=== PATIENT | female | born 1995 | race Caucasian/White ===

== ENCOUNTER → 2017-03-17 | Outpatient (REF) | payer SELFPAY | LOC: M LAB REF 13:25 | PROVIDERS: ATTEND Advanced Practice Midwife | DX: Z34.83 Encounter for supervision of other normal pregnancy, third trimester (principal) ==

== ENCOUNTER 2017-04-13 15:14 | Inpatient (IN) | payer OTHER ==
[2017-04-13] VITALS (31 sets, daily range): BP systolic 96–149; BP diastolic 53–88
[~2017-04-13] VITALS: Ht 124.5 cm; Wt 64.2 kg
[2017-04-13] MEDS ORDERED: LACTATED RINGER'S 1000 ML IV STA (15:21)
[2017-04-13] MEDS ORDERED: OXYTOCIN DRIP 30 UNITS in APPROPRIATE DILUENT 1 EA IV SCH (15:30)
[2017-04-13] MEDS ORDERED: LR 1,000 ML IV SCH (16:00)
[2017-04-13] MEDS ORDERED: PRENTAB9 PO (16:02)
[2017-04-13] MEDS ORDERED: ZOLO50TA PO (16:02)
[2017-04-13] MEDS ORDERED: IRON65TA PO (16:03)
[2017-04-13] MEDS ORDERED: ZOFR4SOL PO (16:04)
[2017-04-13 16:29] LABS: MEAN CORPUSCULAR HEMOGLOBIN 29.3 pg (27.0-33.0); MEAN CORPUSCULAR HGB CONC 33.5 g/dl (32.0-36.5); MEAN CORPUSCULAR VOLUME 87.5 fl (80.0-96.0); RED CELL DISTRIBUTION WIDTH 15.4 % (11.5-14.5); WHITE BLOOD COUNT 9.2 K/mm3 (4.0-10.0)
--- NOTE | 2017-04-13 19:12 | HPE ---
DATE OF ADMISSION: 04/13/2017 Daniella is a 21-year-old 1, para 0 at 40-5/7 weeks gestation with an estimated date of confinement (EDC) of 04/08/2017 based on last normal menstrual period and confirmed by first trimester ultrasound. She presents to labor and delivery today for induction of labor due to social reasons. Her care was initiated at [facility] in the second trimester. Her course has been complicated by a history of positive urine toxicology at previous provider, (opiates, marijuana) rubella nonimmune, anemia. OBSTETRICAL HISTORY: Primigravida. OB LABS: Blood type is A+, antibody screen negative, rubella immune, VDRL nonreactive. Urine culture normal. Hepatitis B surface antigen negative. HIV negative. Hepatitis C antibody nonreactive. Gonorrhea and chlamydia negative. She did not have any genetic serum screening labs drawn. Gestational diabetic screening was normal at 125 and her GBS is negative. PAST MEDICAL HISTORY: Asthma, activity induced, depression, anxiety, post-traumatic stress disorder. SURGICAL HISTORY: None. FAMILY HISTORY: Depression, cancer of the breast, stomach, pancreas and lung, hypertension, heart disease. SOCIAL HISTORY: The patient is single, but the father of the baby is involved. He is not present at this time. She is a reported former smoker who quit in August. She denies alcohol use. She does report a history of marijuana use and heroin use. A positive history of chlamydia in the past. ALLERGIES: No known drug allergies. CURRENT MEDICATIONS: - ferrous sulfate - Zoloft - Zantac - vitamin OBJECTIVE: Temperature 98.1, pulse 60, respirations 18, blood pressure 128/78. She is alert and oriented times three. She is in no distress, smiling and talkative. heart rate upon admission and arrival to labor and delivery 150 with moderate variability, positive accelerations, no decelerations. There is no pattern of regular contractions upon admission to labor and delivery. Abdomen is gravid, cephalic presentation. Estimated weight: 7-1/2 pounds. Sterile vaginal exam: 3 cm, dilated 80% effaced, -2 station. ASSESSMENT: Intrauterine at 40-5/7 weeks gestation. heart rate category 1. PLAN: Admit the patient to labor and delivery. Labs including a urine toxicology. Out of bed ad gerhard. Clear liquid diet. IV Pitocin for labor induction. I did review risks to induction including increased risk for section, intolerance to labor and failed induction. The patient has had all of her questions answered and does desire to proceed with induction of labor. TYREL
[2017-04-13] MEDS ORDERED: PROMETHAZINE INJ 25 MG/ML VIAL (J2550) IV ONE (19:45)
[2017-04-13] MEDS ORDERED: BUTORPHANOL 2 MG/ML INJ (J0595) IV ONE (19:45)
[2017-04-13] MEDS ORDERED: FENTANYL 2MCG/ML ROPIVACAINE 0.2% IN 0.9% NACL 200ML IVBAG As Ordered ONE (21:41)
[2017-04-13] MEDS ORDERED: EPIDURAL COMMENT XX SCH (23:00)
[2017-04-13] MEDS ORDERED: NALOXONE INJ 0.4 MG/1 ML VIAL (J2310) IV PRN (23:00)
[2017-04-13] MEDS ORDERED: diphenhydrAMINE INJ 50MG/ML VIAL (J1200) IV PRN (23:00)
[2017-04-13] MEDS ORDERED: ePHEDrine SULFATE 25 MG/5 ML(5MG/ML) SYRINGE IV PRN (23:00)
[2017-04-13] MEDS ORDERED: LACTATED RINGER'S 1000 ML IV PRN (23:00)
[2017-04-13] MEDS ORDERED: REFRIGERATOR IV KEYS XX PRN (23:00)
[2017-04-13] MEDS ORDERED: FENTANYL/ROPIVACAINE/NACL BAG 200 ML EPIDURAL SCH (23:00)
[2017-04-13] MEDS ORDERED: EPIDURAL/PCA KEYS XX PRN (23:00)
[2017-04-13] MEDS ORDERED: ONDANSETRON 4MG/2ML VIAL (J2405) IV PRN (23:00)
[2017-04-14] VITALS (10 sets, daily range): BP systolic 108–140; BP diastolic 55–76
[2017-04-14] MEDS ORDERED: OXYTOCIN DRIP 30 UNITS in APPROPRIATE DILUENT 1 EA IV SCH (02:57)
[2017-04-14] MEDS ORDERED: MEASLES,MUMPS,RUBELLA VACCINE INJ (MMR-II) (90707) SC SCH (03:00)
[2017-04-14] MEDS ORDERED: METHYLERGONOVINE MALEATE 0.2 MG TAB PO PRN (03:00)
[2017-04-14] MEDS ORDERED: ACETAMINOPHEN 500 MG TAB PO PRN (03:00)
[2017-04-14] MEDS ORDERED: RHOGAM 300 MCG (1500 IU) INJ (J2790) IM SCH (03:00)
[2017-04-14] MEDS ORDERED: DOCUSATE SODIUM 100 MG CAP PO PRN (03:00)
[2017-04-14] MEDS ORDERED: DIBUCAINE 1% OINTMENT 30GM TOP PRN (03:00)
[2017-04-14] MEDS ORDERED: ONDANSETRON 4MG/2ML VIAL (J2405) IV PRN (03:00)
[2017-04-14] MEDS: IBUPROFEN 800 MG TAB PO PRN ×2 (04:40→16:40)
--- NOTE | 2017-04-14 06:32 | DN ---
DATE OF SERVICE: 04/14/2017 Daniella is a 21-year-old 1, para 1-0-0-1 now, who was admitted to labor and delivery for induction of labor due to social reasons. Intravenous (IV) Pitocin was started. Labor did ensue. She did utilize an epidural for her labor coping. She had spontaneous rupture of membranes for a small amount of clear fluid at 0130. She progressed to full dilation at 0201. She pushed to a normal spontaneous vaginal delivery of a live female infant in occiput anterior (OA) position with restitution to left occiput transverse (LOT) position at 0218. There was a nuchal cord times one loose that was reduced manually, as well as a left compound hand. The shoulders delivered spontaneously and the corpus immediately followed. The female was placed on the maternal abdomen crying and active. Her mouth and nares were bulb suctioned. The cord was clamped once pulsations ceased and cut by the father of the baby. A spontaneous expulsion of an intact placenta with three-vessel cord by Wooten mechanism was at 0223. Uterine hemostasis was achieved with IV Pitocin rapid infusion and uterine fundal massage. Estimated blood loss 300 mL. Perineum and vagina inspected. Noted to have a second-degree midline laceration. The laceration was repaired under epidural anesthesia and repaired with 3-0 Rapide in the usual fashion. [place] female weighed 6 pounds 13 ounces, 3100 grams and scores 9 and 9. Family is going to name their daughter Gregoria and mother is going to attempt to breastfeed. At the close of delivery, lap counts, needle counts and instrument counts were correct and verified.
[2017-04-14] MEDS: PRENATAL VITAMINS CHEWABLE TABLET PO SCH (08:35)
[2017-04-15 05:34] VITALS: BP 139/71
[2017-04-15] MEDS: PRENATAL VITAMINS CHEWABLE TABLET PO SCH (08:52)
[2017-04-15] MEDS: IBUPROFEN 800 MG TAB PO PRN (12:36)
[2017-04-15 18:00] VITALS: BP 130/76
[2017-04-16 06:25] VITALS: BP 130/81
[2017-04-16] MEDS: PRENATAL VITAMINS CHEWABLE TABLET PO SCH (07:56)
[2017-04-16] MEDS: IBUPROFEN 800 MG TAB PO PRN (07:57)
[2017-04-16] MEDS ORDERED: TYLE325C PO (10:10)
[2017-04-16] MEDS ORDERED: NUPE1OIN2 TOP (10:10)
[2017-04-16] MEDS ORDERED: MOTR200T44 PO (10:10)
[2017-04-21 00:07] LABS: GC Carboxy THC 118 ng/mL (Cutoff=10)
== END 2017-04-16 15:40 | disposition home or self-care (01) | DRG 560 ==
LOC: M LDI 15:14 → M OBS 04-14 05:33
PROVIDERS: ADMIT Advanced Practice Midwife; ATTEND Advanced Practice Midwife
PROC: 3E033VJ Introduction of Other Hormone into Peripheral Vein, Percutaneous Approach (ICD-10-PCS; 2017-04-13)
PROC: 10E0XZZ Delivery of Products of Conception, External Approach (ICD-10-PCS; principal; 2017-04-14)
PROC: 0KQM0ZZ Repair Perineum Muscle, Open Approach (ICD-10-PCS; 2017-04-14)
DX: O48.0 Post-term pregnancy (principal); O32.6XX0 Maternal care for compound presentation, not applicable or unspecified; Z3A.40 40 weeks gestation of pregnancy; O69.82X0 Labor and delivery complicated by other cord entanglement, without compression, not applicable or unspecified; Z37.0 Single live birth; O70.1 Second degree perineal laceration during delivery

== ENCOUNTER 2017-05-26 11:00 | Outpatient (RCR) | payer MEDICAID, OTHER ==
[~2017-05-26 11:00] MED LIST: IRON65TA PO; MOTR200T44 PO; NUPE1OIN2 TOP; PRENTAB9 PO; TYLE325C PO; ZOFR4SOL PO; ZOLO50TA PO
== END 2017-06-01 ==
LOC: M OUTALCOH 11:00
PROVIDERS: ATTEND Psychiatry & Neurology Psychiatry
DX: F12.20 Cannabis dependence, uncomplicated (principal)

== ENCOUNTER 2017-06-26 13:00 | Outpatient (RCR) | payer MEDICAID | END 2017-07-01 | LOC: M OUTALCOH 13:00 | PROVIDERS: ATTEND Psychiatry & Neurology Psychiatry | DX: F12.20 Cannabis dependence, uncomplicated (principal) ==

== ENCOUNTER 2018-03-02 12:01 | Inpatient (IN) | payer MEDICAID ==
[2018-03-02 12:38] LABS: HEMATOCRIT 40.9 % (36.0-47.0); HEMOGLOBIN 13.4 g/dl (12.0-15.5); MEAN CORPUSCULAR HEMOGLOBIN 27.7 pg (27.0-33.0); MEAN CORPUSCULAR HGB CONC 32.8 g/dl (32.0-36.5); MEAN CORPUSCULAR VOLUME 84.5 fl (80.0-96.0); PLATELET COUNT, AUTOMATED 386 10^3/uL (150-450); RED BLOOD COUNT 4.84 10^6/uL (4.00-5.40); RED CELL DISTRIBUTION WIDTH 14.4 % (11.5-14.5); WHITE BLOOD COUNT 10.4 10^3/uL (4.0-10.0)
[2018-03-02 13:12] LABS: CONTROL LINE HCG INT CTR LINE PRESENT; HCG, SERUM QUALITATIVE NEGATIVE (NEGATIVE)
[2018-03-02 13:17] LABS: AMPHETAMINES LEVEL URINE NEGATIVE (NEGATIVE); BARBITURATES URINE NEGATIVE (NEGATIVE); BENZODIAZEPINES URINE NEGATIVE (NEGATIVE); CANNABINOIDS URINE NEGATIVE (NEGATIVE); COCAINE METABOLITE URINE NEGATIVE (NEGATIVE); METHADONE URINE NEGATIVE (NEGATIVE); OPIATES URINE NEGATIVE (NEGATIVE); PHENCYCLIDINE URINE NEGATIVE (NEGATIVE)
[2018-03-02] MEDS: ACETAMINOPHEN TAB 650MG DOSE (2X325MG) PO ×2 (13:26→21:22)
[2018-03-02 13:29] LABS: ACETAMINOPHEN LEVEL < 2.0 UG/ML (10.0-30.0); ALBUMIN 3.7 GM/DL (3.2-5.2); ALBUMIN/GLOBULIN RATIO 1.06 (1.00-1.93); ALKALINE PHOSPHATASE 102 U/L (45-117); ALT/SGPT 19 U/L (12-78); ANION GAP 6 MEQ/L (8-16); AST/SGOT 12 U/L (7-37); BILIRUBIN,DIRECT < 0.1 MG/DL (0.0-0.2); BILIRUBIN,TOTAL 0.2 MG/DL (0.2-1.0); BLOOD UREA NITROGEN 10 MG/DL (7-18); CALCIUM LEVEL 8.9 MG/DL (8.5-10.1); CARBON DIOXIDE LEVEL 25 MEQ/L (21-32); CHLORIDE LEVEL 110 MEQ/L (98-107); CREATININE FOR GFR 0.64 MG/DL (0.55-1.30); ETHYL ALCOHOL (ETHANOL) 0.005 % (0.000-0.010); GLUCOSE, FASTING 92 MG/DL (70-100); POTASSIUM SERUM 4.4 MEQ/L (3.5-5.1); SALICYLATE LEVEL 3.1 MG/DL (5.0-30.0); SODIUM LEVEL 141 MEQ/L (136-145); TOTAL PROTEIN 7.2 GM/DL (6.4-8.2)
[2018-03-02] MEDS ORDERED: MAALOX 30 ML SUSP *UDC PO (15:30)
[2018-03-02] MEDS ORDERED: MOM 30ML SUSPENSION UDC PO (15:30)
[2018-03-02] MEDS: traZODone 50 MG TAB PO (21:22)
[2018-03-03] MEDS: ACETAMINOPHEN TAB 650MG DOSE (2X325MG) PO (14:47)
[2018-03-03] MEDS: CitaloPRAM (CeleXA) 10 MG TABLET PO (17:57)
[2018-03-03] MEDS ORDERED: PILL CRUSHER/CUTTER 1 EACH XX (18:00)
[2018-03-03] MEDS ORDERED: BENZAMYCIN TOP (21:00)
[2018-03-03] MEDS: CLINDAMYCIN TOP 1% SOLN 60 ML BTL TOP (23:56)
[2018-03-04] MEDS: traZODone 50 MG TAB PO ×2 (00:02→23:03)
[2018-03-04] MEDS: CitaloPRAM (CeleXA) 10 MG TABLET PO (08:24)
[2018-03-04] MEDS: CLINDAMYCIN TOP 1% SOLN 60 ML BTL TOP ×2 (08:24→21:29)
[2018-03-04] MEDS: ACETAMINOPHEN TAB 650MG DOSE (2X325MG) PO (11:40)
[2018-03-05] MEDS: CLINDAMYCIN TOP 1% SOLN 60 ML BTL TOP (08:18)
[2018-03-05] MEDS: CitaloPRAM (CeleXA) 10 MG TABLET PO (08:18)
[2018-03-05] MEDS: ACETAMINOPHEN TAB 650MG DOSE (2X325MG) PO (10:29)
== END 2018-03-05 11:30 | disposition home or self-care (01) | DRG 885 ==
LOC: M ED 12:01 → M ED INP 15:30 → M PSY 16:15
DX: F31.81 Bipolar II disorder (principal); F60.3 Borderline personality disorder; L70.0 Acne vulgaris; Z81.8 Family history of other mental and behavioral disorders; Z81.3 Family history of other psychoactive substance abuse and dependence

== ENCOUNTER 2018-07-12 15:49 | Emergency (ER) | payer OTHER, MEDICAID ==
[2018-07-12] MEDS: NS 1,000 ML IV (17:07)
[2018-07-12 17:36] LABS: HEMATOCRIT 38.9 % (36.0-47.0); HEMOGLOBIN 12.8 g/dl (12.0-15.5); MEAN CORPUSCULAR HEMOGLOBIN 28.9 pg (27.0-33.0); MEAN CORPUSCULAR HGB CONC 32.9 g/dl (32.0-36.5); MEAN CORPUSCULAR VOLUME 87.8 fl (80.0-96.0); PLATELET COUNT, AUTOMATED 350 10^3/uL (150-450); RED BLOOD COUNT 4.43 10^6/uL (4.00-5.40); RED CELL DISTRIBUTION WIDTH 14.2 % (11.5-14.5); WHITE BLOOD COUNT 10.9 10^3/uL (4.0-10.0)
[2018-07-12 18:06] LABS: CONTROL LINE HCG INT CTR LINE PRESENT; HCG, SERUM QUALITATIVE NEGATIVE (NEGATIVE)
== END 2018-07-12 18:36 | disposition home or self-care (01) ==
LOC: M ED 15:49
DX: R11.2 Nausea with vomiting, unspecified (principal); R19.7 Diarrhea, unspecified; J45.909 Unspecified asthma, uncomplicated; F43.10 Post-traumatic stress disorder, unspecified; Z91.040 Latex allergy status; E73.9 Lactose intolerance, unspecified; Z91.018 Allergy to other foods; Z79.899 Other long term (current) drug therapy
CPT/HCPCS: 84703

== ENCOUNTER → 2018-07-17 | Outpatient (REF) | payer OTHER | LOC: M LAB REF 14:03 | DX: J02.9 Acute pharyngitis, unspecified (principal) | CPT/HCPCS: 87430 ==

== ENCOUNTER → 2018-08-03 | Outpatient (REF) | payer OTHER | LOC: M LAB REF 17:17 | DX: J02.9 Acute pharyngitis, unspecified (principal) ==

== ENCOUNTER 2018-08-19 03:09 | Emergency (ER) | payer OTHER ==
[2018-08-19 04:08] LABS: BASO # 0.1 10^3/uL (0.0-0.2); BASO % 0.7 % (0.0-1.0); EOS # 0.2 10^3/uL (0.0-0.50); EOS % 2.1 % (0.0-3.0); HEMATOCRIT 35.9 % (36.0-47.0); IMMATURE GRANULOCYTE % 0.4 % (0-3.0); LYMPH # 2.6 10^3/uL (1.5-6.5); LYMPH % 24.4 % (24.0-44.0); MEAN CORPUSCULAR HEMOGLOBIN 29.1 pg (27.0-33.0); MEAN CORPUSCULAR HGB CONC 33.4 g/dl (32.0-36.5); MEAN CORPUSCULAR VOLUME 86.9 fl (80.0-96.0); MONO # 0.7 10^3/uL (0.0-0.8); MONO % 6.8 % (0.0-5.0); NEUTROPHILS # 6.9 10^3/uL (1.8-7.7); NEUTROPHILS % 65.6 % (36.0-66.0); PLATELET COUNT, AUTOMATED 331 10^3/uL (150-450); RED BLOOD COUNT 4.13 10^6/uL (4.00-5.40); RED CELL DISTRIBUTION WIDTH 13.4 % (11.5-14.5); WHITE BLOOD COUNT 10.5 10^3/uL (4.0-10.0)
[2018-08-19 04:52] LABS: HCG, SERUM QUANTITATIVE 24220 MIU/ML
== END 2018-08-19 06:12 | disposition home or self-care (01) ==
LOC: M ED 03:09
DX: O20.0 Threatened abortion (principal); Z91.018 Allergy to other foods; Z91.040 Latex allergy status; O99.281 Endocrine, nutritional and metabolic diseases complicating pregnancy, first trimester; E73.9 Lactose intolerance, unspecified; Z3A.01 Less than 8 weeks gestation of pregnancy
CPT/HCPCS: 76801

== ENCOUNTER → 2018-09-16 | Outpatient (REF) | payer OTHER ==
[~2018-09-16] MED LIST changes: +ARIP1TAB6; +ARIP5TA PO; +CELE10TA PO; +CLIN1SOL EX; +TRAZO50TA PO
[2018-09-16 18:13] LABS: INFLUENZA A AMPLIFICATION NEGATIVE (NEGATIVE); INFLUENZA B AMPLIFICATION NEGATIVE (NEGATIVE)
== END ==
LOC: M LAB REF 12:37
PROVIDERS: ATTEND Nurse Practitioner Family
DX: J11.1 Influenza due to unidentified influenza virus with other respiratory manifestations (principal)

== ENCOUNTER 2018-10-02 06:50 | Emergency (ER) | payer OTHER ==
[2018-10-02] MEDS ORDERED: ACETAMINOPHEN TAB 650MG DOSE (2X325MG) PO ONE (07:45)
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
[2018-10-02 09:43] VITALS: BP 118/68
== END 2018-10-02 09:45 | disposition home or self-care (01) ==
LOC: M ED 06:50
DX: S02.2XXA Fracture of nasal bones, initial encounter for closed fracture (principal); S00.93XA Contusion of unspecified part of head, initial encounter; O99.89 Other specified diseases and conditions complicating pregnancy, childbirth and the puerperium; F41.8 Other specified anxiety disorders; J45.909 Unspecified asthma, uncomplicated; Y04.8XXA Assault by other bodily force, initial encounter; Y07.03 Male partner, perpetrator of maltreatment and neglect

== ENCOUNTER → 2018-10-09 | Outpatient (CLI) | payer OTHER ==
[2018-10-09 17:55] LABS: BASO % 0.3 % (0.0-1.0); EOS # 0.1 10^3/uL (0.0-0.50); EOS % 0.8 % (0.0-3.0); HEMATOCRIT 38.3 % (36.0-47.0); HEMOGLOBIN 12.6 g/dl (12.0-15.5); LYMPH # 2.1 10^3/uL (1.5-6.5); MEAN CORPUSCULAR HEMOGLOBIN 28.8 pg (27.0-33.0); MEAN CORPUSCULAR HGB CONC 32.9 g/dl (32.0-36.5); MEAN CORPUSCULAR VOLUME 87.6 fl (80.0-96.0); MONO # 0.5 10^3/uL (0.0-0.8); MONO % 4.5 % (0.0-5.0); NEUTROPHILS # 8.9 10^3/uL (1.8-7.7); NEUTROPHILS % 75.9 % (36.0-66.0); PLATELET COUNT, AUTOMATED 353 10^3/uL (150-450); RED BLOOD COUNT 4.37 10^6/uL (4.00-5.40); WHITE BLOOD COUNT 11.8 10^3/uL (4.0-10.0)
[2018-10-10 10:11] LABS: HEPATITIS C VIRUS ABY INDEX 0.1 INDEX (<0.8); HIV 1&2 SCREEN CENTAUR NEGATIVE (NEGATIVE); RUBELLA IgG QUALITATIVE IMMUNE (IMMUNE)
[2018-10-10 11:19] LABS: CHLAMYDIA DNA AMPLIFICATION POSITIVE (NEGATIVE); GC DNA AMPLIFICATION NEGATIVE (NEGATIVE)
== END ==
LOC: M SMT 14:37
PROVIDERS: ATTEND Advanced Practice Midwife
DX: Z36.89 Encounter for other specified antenatal screening (principal); Z3A.01 Less than 8 weeks gestation of pregnancy

== ENCOUNTER → 2018-11-12 | Outpatient (CLI) | payer OTHER ==
--- NOTE | 2018-11-12 19:43 | REP ---
OB ULTRASOUND: Real-time sonographic evaluation of the gravid uterus is performed. There is a single living intrauterine gestation. The estimated gestational age is 19 weeks 2 days, EDC 04/06/2019. Today's measurements indicate appropriate growth. BPD 42 mm = 18 weeks 5 days, at the 35th percentile. HC 156 mm = 18 weeks 54 days, at the 27th percentile. AC 131 mm = 18 weeks 4 days, at the 35th percentile. Femur length 30 mm = 19 weeks 2 days, at the 49th percentile. HC/AC ratio 1.19 within normal range. Estimated weight 262 grams, 32nd percentile. Cervix is closed and measures 2.9 cm in length. heart rate 139 beats per minute. SEEN/GROSSLY UNREMARKABLE Lateral ventricles Yes Posterior fossa Yes Upper lip Yes Four-chamber heart No LVOT Yes RVOT Yes Stomach Yes Cord insertion Yes Three vessel cord Yes Kidneys No Bladder Yes Spine No position: Breech. Placenta: Anterior and fundal and grade 1 with no previa or abruption. Amniotic fluid within normal limits. Electronically Signed by Gilson Calhoun MD 11/13/2018 10:32 A
== END ==
LOC: M RAD 14:15
PROVIDERS: ATTEND Advanced Practice Midwife
DX: Z34.82 Encounter for supervision of other normal pregnancy, second trimester (principal); Z36.89 Encounter for other specified antenatal screening; Z3A.19 19 weeks gestation of pregnancy

== ENCOUNTER → 2018-12-17 | Outpatient (REF) | payer OTHER ==
[2018-12-17 15:33] LABS: CHLAMYDIA DNA AMPLIFICATION NEGATIVE (NEGATIVE); GC DNA AMPLIFICATION NEGATIVE (NEGATIVE)
== END ==
LOC: M LAB REF 13:48
PROVIDERS: ATTEND Advanced Practice Midwife
DX: O99.342 Other mental disorders complicating pregnancy, second trimester (principal); Z3A.00 Weeks of gestation of pregnancy not specified

== ENCOUNTER → 2018-12-28 | Outpatient (CLI) | payer OTHER ==
--- NOTE | 2018-12-28 13:48 | REP ---
Clinical: Anatomical evaluation. Comparison: 11/12/2018 . Findings: Examination demonstrates a single live intrauterine in breech presentation. motion is identified by technologist. Placenta is noted posterior and grade grade 1 without evidence for placenta previa or abruption. Amniotic fluid volume is normal. Cervix measures 4.0 cm in length and appears closed. No evidence for nuchal cord. Gestational age by LMP 25 weeks 6 days with RAMIRO 04/06/2019 . Gestational age by current measurements 25 weeks 3 days with RAMIRO 04/09/2019 . FHR equals 153 beats per minute. Estimated weight 792 grams ( 27 percentile). Anatomical assessment demonstrates normal structures including cranium, choroid plexus, cavum, cerebellum/posterior fossa, facial features, lungs, four-chamber heart/ventricular outflow tracts, diaphragm, stomach, cord insertion/three-vessel cord, kidneys/bladder, spine, and extremities. Impression: Single live intrauterine in breech presentation demonstrating appropriate interval growth. In conjunction with prior examination anatomical assessment is complete and normal. No gross abnormalities are identified. Electronically Signed by Hosea Woody MD 12/28/2018 01:40 P
== END ==
LOC: M RAD 11:40
PROVIDERS: ATTEND Advanced Practice Midwife
DX: O99.342 Other mental disorders complicating pregnancy, second trimester (principal); O32.1XX0 Maternal care for breech presentation, not applicable or unspecified; Z3A.25 25 weeks gestation of pregnancy

== ENCOUNTER → 2019-01-28 | Outpatient (CLI) | payer OTHER ==
[~2019-01-28] MED LIST changes: +ARIP1TAB6 PO; -ARIP5TA PO
[2019-01-28 14:48] LABS: HEMATOCRIT 30.9 % (36.0-47.0); HEMOGLOBIN 10.1 g/dl (12.0-15.5); MEAN CORPUSCULAR HEMOGLOBIN 29.5 pg (27.0-33.0); MEAN CORPUSCULAR HGB CONC 32.7 g/dl (32.0-36.5); MEAN CORPUSCULAR VOLUME 90.4 fl (80.0-96.0); PLATELET COUNT, AUTOMATED 305 10^3/uL (150-450); RED BLOOD COUNT 3.42 10^6/uL (4.00-5.40); WHITE BLOOD COUNT 12.3 10^3/uL (4.0-10.0)
== END ==
LOC: M LAB 13:21
PROVIDERS: ATTEND Advanced Practice Midwife
DX: O99.342 Other mental disorders complicating pregnancy, second trimester (principal); Z3A.00 Weeks of gestation of pregnancy not specified

== ENCOUNTER → 2019-02-04 | Outpatient (REF) | payer OTHER | LOC: M LAB REF 17:24 | PROVIDERS: ATTEND Advanced Practice Midwife | DX: O99.343 Other mental disorders complicating pregnancy, third trimester (principal) ==

== ENCOUNTER → 2019-02-22 | Outpatient (REF) | payer OTHER ==
[~2019-02-22] MED LIST changes: +AUGM875T28 PO; +PRENTAB55 PO; +VENTAER INH
== END ==
LOC: M LAB REF 16:51
PROVIDERS: ATTEND Advanced Practice Midwife
DX: O23.593 Infection of other part of genital tract in pregnancy, third trimester (principal)

== ENCOUNTER 2019-02-24 13:05 | Emergency (ER) | payer OTHER ==
[~2019-02-24] VITALS: Ht 154.9 cm; Wt 31.4 kg
[~2019-02-24 13:05] MED LIST changes: -AUGM875T28 PO; -PRENTAB55 PO; -VENTAER INH
[2019-02-24] MEDS ORDERED: PRENTAB55 PO (14:09)
[2019-02-24] MEDS ORDERED: AUGM875T28 PO (15:46)
[2019-02-24] MEDS ORDERED: VENTAER INH (15:46)
[2019-02-24 15:57] VITALS: BP 132/78
== END 2019-02-24 15:59 | disposition home or self-care (01) ==
LOC: M ED 13:05
DX: O99.513 Diseases of the respiratory system complicating pregnancy, third trimester (principal); O99.343 Other mental disorders complicating pregnancy, third trimester; E73.9 Lactose intolerance, unspecified; Z3A.34 34 weeks gestation of pregnancy; Z79.899 Other long term (current) drug therapy; Z91.040 Latex allergy status; Z91.018 Allergy to other foods

== ENCOUNTER → 2019-03-18 | Outpatient (REF) | payer OTHER ==
[~2019-03-18] MED LIST changes: +AUGM875T28 PO; +PRENTAB55 PO; +TRAZ1TAB10 PO; -TRAZO50TA PO; +VALT1TAB PO; +VENTAER INH
== END ==
LOC: M LAB REF 17:10
PROVIDERS: ATTEND Advanced Practice Midwife
DX: Z34.83 Encounter for supervision of other normal pregnancy, third trimester (principal); Z3A.00 Weeks of gestation of pregnancy not specified

== ENCOUNTER 2019-03-19 05:52 | Inpatient (IN) | payer OTHER ==
[2019-03-19] VITALS (15 sets, daily range): BP systolic 112–178; BP diastolic 70–104
[~2019-03-19] VITALS: Ht 154.9 cm; Wt 66.6 kg
[~2019-03-19 05:52] MED LIST changes: -VALT1TAB PO
[2019-03-19] MEDS ORDERED: ceFAZolin 2 GM/D5W 50 ML IV BAG (J0690 PER 500MG) As Ordered ONE (06:13)
[2019-03-19] MEDS ORDERED: dexameTHASONE 4 MG/ML 1ML VIAL (J1100) As Ordered ONE (06:24)
[2019-03-19] MEDS ORDERED: MIDAZOLAM INJ 2 MG/2 ML VIAL (J2250) As Ordered ONE ×2 (06:24→07:30)
[2019-03-19] MEDS ORDERED: PROPOFOL 200 MG/20 ML VIAL As Ordered ONE (06:24)
[2019-03-19] MEDS ORDERED: OXYTOCIN INJ 10 UNITS/ML VIAL (J2590) As Ordered ONE ×3 (06:24→07:19)
[2019-03-19] MEDS ORDERED: SUCCINYLCHOLINE 100 MG/5 ML SYRINGE (J0330) As Ordered ONE (06:24)
[2019-03-19] MEDS ORDERED: fentaNYL 100 MCG/2 ML INJECTION (J3010) As Ordered ONE ×2 (06:39→07:42)
[2019-03-19 06:40] LABS: CORD GAS ABE V -17.1; CORD GAS HCO3 V 16.5 MEQ/L; CORD GAS PCO2 V 75.9 mmHg; CORD GAS PO2 V 18.3 mmHg; CORD GAS SBC V 10.7 MEQ/L; CORD GAS TCO2 V 18.8 MEQ/L
[2019-03-19 06:44] LABS: CORD GAS ABE A -16.7; CORD GAS HCO3 A 18.7 MEQ/L; CORD GAS O2 SAT A 18.6 %; CORD GAS PCO2 A 98.3 mmHg; CORD GAS PO2 A 20.2 mmHg; CORD GAS SBC A 10.9 MEQ/L; CORD GAS TCO2 A 21.8 MEQ/L
[2019-03-19 06:45] LABS: CORD GAS PH A 6.898 UNITS; CORD GAS PH V 6.954 UNITS
[2019-03-19] MEDS ORDERED: MORPHINE PRES-FREE INJ 10 MG/10 ML VIAL (J2274) As Ordered ONE (06:51)
[2019-03-19 06:54] LABS: HEMATOCRIT 24.5 % (36.0-47.0); HEMOGLOBIN 8.1 g/dl (12.0-15.5); MEAN CORPUSCULAR HEMOGLOBIN 28.9 pg (27.0-33.0); MEAN CORPUSCULAR HGB CONC 33.1 g/dl (32.0-36.5); MEAN CORPUSCULAR VOLUME 87.5 fl (80.0-96.0); PLATELET COUNT, AUTOMATED 187 10^3/uL (150-450); WHITE BLOOD COUNT 17.9 10^3/uL (4.0-10.0)
[2019-03-19 07:06] LABS: INR 1.37; PROTHROMBIN TIME 17.1 SECONDS (12.1-14.4)
[2019-03-19 07:07] LABS: PARTIAL THROMBOPLASTIN TIME 39.1 SECONDS (25.4-37.6)
--- NOTE | 2019-03-19 07:57 | NUR ---
Operative Note Date of procedure: 03/19/19 Procedure: Emergent primary low-transverse section Anesthesia: General, ETA Preoperative diagnosis: 1. 36+ weeks 2. Placental abruption 3. Non-reassuring heart rate tracing (bradycardic, sinusoidal) Postoperative diagnosis: Same as preoperative Concern for early D.I.C. hemorrhage Indication: Clinical evidence of acute placental abruption upon presentation to L&D unit. Non-reassuring heart rate tracing. Primary surgeon: Bentley Cevallos D.O., Emeli Pino Poke In: Jorge Clemons CNM (essential for surgical site exposure and assistance with delivery) Estimated blood loss:1500 ml IV fluids administered: 3500 ml crystalloid Drains: Williamson catheter. Urine output:20 ml data: Apgars 2,8,8. Birthweight 2280g, 5lbs 0oz. Female. Preoperative/prophylactic antibiotics: Ancef 2 g IV (given within 30 minutes prior to surgical start time). Azithromycin 500mg IV x 1. Intraoperative findings: Upon hysterotomy, a large amount of blood , mixed with clot, was removed from intrauterine cavity. Suspect >50% placental abruption. Cephalic presentation, no dystocia with delivery. Specimen(s): Placenta Procedure: The patient was emergently counseled and consented on the risks, benefits, indications and alternatives of the procedure. Informed consent was obtained and placed in the chart. She was taken to the operating room emergently. IV access was difficult, but ultimately obtained in an expeditious manner. She was placed on the operating table and emergently prepped and draped. General anesthesia was administered. Sequential compression device had been placed on the lower extremities. A Williamson catheter was placed under sterile conditions. I was notified to start once the airway was secured. Using the 10 blade a Pfannenstiel incision was performed. The 10 blade was used to dissect down to the level of the rectus sheath fascia. The rectus sheath fascia was incised at the midline, and the fascial incision was extended with manual stretch. The peritoneum was entered digitally. Entry into the intraperitoneal cavity was achieved. The peritoneal opening was extended with manual stretch . There was good visualization of both the bladder and the lower uterine segment. The bladder retractor was placed. A low transverse uterine incision was made with a new 10 blade. The hysterotomy was extended with manual stretch. A large amount of blood clot was evacuated. The amniotic sac was protruding and then artificially ruptured. Clear amniotic fluid was noted. The baby's head delivered through the hysterotomy with ease. The remainder of the body delivered with ease. The cord was doubly clamped and cut and the baby was handed off to awaiting care. See data above. Cord blood was obtained. Cord gases were obtained. Apgars were 2/8/8. See cord gas results in [facility]. The placenta was manually removed. There was clear evidence of placental abruption. The uterus was exteriorized. The intrauterine cavity was cleared of all clot and debris with a laparotomy sponge. The hysterotomy was closed with 0 Vicryl in running, locked fashion. A second imbricating closure was performed over the initial layer closure using 0 Vicryl. 3-0 Vicryl was used to place figure of 8 stitches to achieve closure and hemostasis. The hysterotomy was noted to be hemostatic. The posterior cul-de-sac was irrigated and cleared of all clot and debris. The uterus was replaced back into the abdomen. The paracolic gutters were cleared of all clot and debris with damp lap arotomy sponges. The hysterotomy is reinspected and noted to be hemostatic. Sponge, needle and instrument counts were correct. The peritoneum was closed with 3-0 Vicryl in running fashion. The rectus muscle bellies were noted to be hemostatic. The fascia was closed with 0 Vicryl in running fashion. Sponge, needle and instrument counts were again correct. The subcutaneous layer was irrigated. Small subcutaneous bleeders were cauterized with Bovie. The subcutaneous layer was reapproximated with 3-0 Vicryl in running fashion. The skin was closed with 3-0 Monocryl in subcuticular fashion. A bandage was placed over the closed incision. The final sponge, instrument and needle count was correct. She tolerated the entire procedure very well. She was transferred to the PACU in good and stable condition. Dr. Bentley Cevallos D.O., F.Boris.Carla.O.G
[2019-03-19] MEDS ORDERED: ACETAMINOPHEN 1000MG 100ML IV BTL (OFIRMEV) (J0131 PER 10MG) As Ordered ONE (07:58)
[2019-03-19] MEDS ORDERED: LACTATED RINGER'S 1000 ML IV STA (08:04)
[2019-03-19] MEDS ORDERED: LR 1,000 ML IV SCH (08:04)
[2019-03-19] MEDS ORDERED: HYDROMORPHONE HCL 0.5 MG/ 0.5 ML SYRINGE (J1170 PER 1) As Ordered ONE (08:25)
[2019-03-19] MEDS ORDERED: ONDANSETRON 4MG/2ML VIAL (J2405) As Ordered ONE (08:26)
[2019-03-19] MEDS ORDERED: PROMETHAZINE 25 MG TAB PO PRN (08:30)
[2019-03-19] MEDS ORDERED: RHOGAM 300 MCG (1500 IU) INJ (J2790) IM SCH (08:30)
[2019-03-19] MEDS ORDERED: fentaNYL 100 MCG/2 ML INJECTION (J3010) IV PRN (08:30)
[2019-03-19] MEDS: HYDROMORPHONE HCL 0.5 MG/ 0.5 ML SYRINGE (J1170 PER 1) IV PRN ×5 (08:30→08:50)
[2019-03-19] MEDS ORDERED: MEASLES,MUMPS,RUBELLA VACCINE INJ (MMR-II) (90707) SC SCH (08:30)
[2019-03-19] MEDS ORDERED: ONDANSETRON 4MG/2ML VIAL (J2405) IV PRN (08:30)
[2019-03-19 08:31] LABS: AMPHETAMINES URINE REFLEX NEGATIVE (NEGATIVE); BARBITURATES URINE REFLEX NEGATIVE (NEGATIVE); BENZODIAZEPINES URINE REFLEX NEGATIVE (NEGATIVE); CANNABINOIDS URINE REFLEX NEGATIVE (NEGATIVE); COCAINE METABOLITE URINE REFLE NEGATIVE (NEGATIVE); METHADONE URINE REFLEX NEGATIVE (NEGATIVE); OPIATES URINE REFLEX NEGATIVE (NEGATIVE); PHENCYCLIDINE URINE REFLEX NEGATIVE (NEGATIVE)
[2019-03-19] MEDS: DOCUSATE SODIUM 100 MG CAP PO SCH ×2 (09:00→21:07)
[2019-03-19] MEDS ORDERED: OXYTOCIN DRIP 30 UNITS in APPROPRIATE DILUENT 1 EA IV SCH (09:00)
[2019-03-19] MEDS ORDERED: AZITHROMYCIN INJ 500 MG, VIAL MATE ADAPTER 1 EACH in D5W 250 ML IV ONE (09:00)
[2019-03-19] MEDS: PRENATAL VITAMINS CHEWABLE TABLET PO SCH (09:00)
[2019-03-19] MEDS ORDERED: VALT1TAB PO (09:16)
[2019-03-19] MEDS ORDERED: PROMETHAZINE INJ 25 MG/ML VIAL (J2550) As Ordered ONE (09:24)
--- NOTE | 2019-03-19 09:28 | HPEPDOC ---
Obstetrical History & Physical General Date of Admission Mar 19, 2019 at 06:01 Primary Care Physician: ASA FRANCIS CNM History of Present Illness Patient is a [id number] who is a at 36.3 weeks gestation with an RAMIRO of 04/13/19 based off of her first trimester ultrasound. She initiated ca re in her first trimester. 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 Patient is living at [facility]. She presents to L&D this morning via ambulance with severe abdominal pain. She reports her pain started about 30 minutes prior to her arrival to L&D. She arrived to L&D and the nurse attempted to get a heart rate. She denies vaginal bleeding or leaking of fluid. She reports decreased movement. Maternal HR was obtained and was between 63-91. Bedside ultrasound done at 0558 and obtained a FHR of about [address] Cevallos was notified of situation. Dr. Parrish who was in department and called to help assist. The OR was called to set up at this time. Anesthesia was notified. Multiple attempts to start IV was done and unsuccessful. At 0605 the patient reported a gush of fluid. It was noted at that time a large amount of vaginal bleeding that was clotted. Patient transferred to OR after anesthesia was able to place a peripheral IV at 0612. Chief Complaint: Other (abdominal pain and decreased movement) Information Provided By: Patient Age: 23 : 2 Term: 1 Pre-term: 0 Abortions: 0 Livin Care Care: Good Care Dating Final EDC: Apr 13, 2019 Final EDC by: 1st trimester (US) EGA at Admission: 36.3 Antepartum Course Diagnos(e)s anxiety, depression, HSV II Height (inches): 61 Pre- weight (lbs.): 130 Admission Weight (lbs.): 154 Change in Weight (lbs.): 24 Past Medical History Past Obstetrical History : Gestation: 40.5 Type of Delivery: Spontaneous Vaginal Del. 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 Patient is single. FOB is in penitentiary. Patient residing at the [facility]. She has a history of suicidal ideations. she has a history of marijuana and heroin abuse in the past. Marital Status: Single Psychosocial History: Anxiety, Depression, Suicidal thoughts * Smoker: former Smoker Alcohol: Denies Drugs: denies Imunizations Tdap status: declined Influenza Status: declined Allergies Coded Allergies: [place] (Verified Allergy, Intermediate, mandarin oranges - hives, swelling, 10/02/18) lactose (Verified Allergy, Mild, gi upset, 02/24/19) latex (Verified Allergy, Mild, rash, 02/24/19) Medications Scheduled Apq192/Iron Fum/Folic/Docusate ( 19 Tablet) 1 Each Tablet, 1 TAB PO DAILY Valacyclovir HCl (Valtrex) 1,000 Mg Tablet, 1 GRAM PO DAILY Physical Examination Physical Examination GENERAL: Alert and oriented times three. BREAST: . ABDOMEN: Gravid and tender to touch. FETUS: Fetus is vertex (VTX) by Benito. Vaginal exam shows no imminent vaginal delivery. HEART RATE: Regular rate and rhythm. LUNGS: Clear to auscultation (CTA). EXTREMITIES: Generalized edema. Laboratory Data 24H LABS Laboratory Tests 2 03/19/19 06:27: Serology Scanned Report Hepatitis B Testing 03/19/19 06:31: Cord Arterial Blood pH 6.898*L, Cord Arterial Blood PCO2 98.3, Cord Arterial Blood PO2 20.2, Cord Arterial Blood HCO3 18.7, Cord Arterial Blood Total CO2 21.8, Cord Arterial Blood Base Excess -16.7, Cord Arterial Base Excess (Standard 10.9, Cord Arterial Bld Oxygen Saturation 18.6, Cord Venous Blood pH 6.954*L, Cord Venous Blood PCO2 75.9, Cord Venous Blood PO2 18.3, Cord Venous Blood HCO3 16.5, Cord Venous Blood Total CO2 18.8, Cord Venous Base Excess (Actual) -17.1, Cord Venous Base Excess (Standard) 10.7, Cord Venous Blood Oxygen Saturation 18.0 03/19/19 06:43: Nucleated Red Blood Cells % (auto) 0.0, Prothrombin Time 17.1H, Prothromb Time International Ratio 1.37, Activated Partial Thromboplast Time 39.1H, Fibrinogen 139L 03/19/19 07:45: CBC/BMP Laboratory Tests 03/19/19 06:43 Red Blood Count 2.80 L, Mean Corpuscular Volume 87.5, Mean Corpuscular Hemoglobin 28.9, Mean Corpuscular Hemoglobin Concent 33.1, Red Cell Distribution Width 14.2 Pertinent Laboratoy Data Blood Type: A+ RBC Antibody Screen: Negative HIV: Negative Hepatitis B: Negative Hepatitis C: Negative Rapid Plasma Reagin: Nonreactive Rubella: Immune Chlamydia/Gonorrhea: Negative Group B Streptococcus: Unknown Glucose Tolerance Test: 127 Vaginal Examination Presentation: Cephalic presentation Assessment Heart Rate (FHR): 90 Variability: Other (sinusoidal) Heart Patterns: Bradycardia Tocometer Strength: other (abdomen is palpating strong with no resting tone.) Assessment/Plan Assessment IUP at 36.3 weeks gestation bradycardia with Category III FHR tracing placental abruption Plan Admit to L&D. Labs and intravenous (IV) per unit protocol with coags and type with cross match. Dr. Cevallos in transit to hospital and Dr. Choe is available to step in and do primary section if necessary. Ancef 2 grams ordered for IV antibiotic. Patient to OR for stat section via stretcher. Dr. Leal (neonatology) notified. ASA FRANCIS CNM Mar 19, 2019 09:10
[2019-03-19] MEDS ORDERED: PROMETHAZINE INJ 25 MG/ML VIAL (J2550) IV ONE (10:00)
[2019-03-19] MEDS: KETOROLAC 30 MG/ML VIAL (J1885) IV SCH ×3 (10:47→21:08)
[2019-03-19] MEDS: LR 1,000 ML IV SCH ×2 (12:02→17:06)
[2019-03-19 13:04] LABS: HEMATOCRIT 22.5 % (36.0-47.0); HEMOGLOBIN 7.4 g/dl (12.0-15.5); MEAN CORPUSCULAR HEMOGLOBIN 27.7 pg (27.0-33.0); MEAN CORPUSCULAR HGB CONC 32.9 g/dl (32.0-36.5); MEAN CORPUSCULAR VOLUME 84.3 fl (80.0-96.0); PLATELET COUNT, AUTOMATED 116 10^3/uL (150-450); RED BLOOD COUNT 2.67 10^6/uL (4.00-5.40); WHITE BLOOD COUNT 21.1 10^3/uL (4.0-10.0)
[2019-03-19 13:12] LABS: INR 1.18; PARTIAL THROMBOPLASTIN TIME 30.5 SECONDS (25.4-37.6); PROTHROMBIN TIME 15.2 SECONDS (12.1-14.4)
[2019-03-19 13:51] LABS: ALBUMIN 1.7 GM/DL (3.2-5.2); BILIRUBIN,TOTAL 0.3 MG/DL (0.2-1.0); CALCIUM LEVEL 7.2 MG/DL (8.5-10.1); CREATININE FOR GFR 1.65 MG/DL (0.55-1.30); GLOMERULAR FILTRATION RATE 41.8 (>60); POTASSIUM SERUM 4.2 MEQ/L (3.5-5.1); TOTAL PROTEIN 4.1 GM/DL (6.4-8.2); URIC ACID 6.6 MG/DL (2.6-6.0)
[2019-03-19] MEDS: PERCOCET 5MG/325MG TAB PO PRN (22:30)
[2019-03-19] MEDS ORDERED: LABETALOL HCL 100 MG/20 ML VIAL IV STA (23:28)
[2019-03-20] VITALS (28 sets, daily range): BP systolic 113–160; BP diastolic 68–102
[2019-03-20 00:24] LABS: INR 1.08; PROTHROMBIN TIME 14.1 SECONDS (12.1-14.4)
[2019-03-20 00:25] LABS: PARTIAL THROMBOPLASTIN TIME 27.8 SECONDS (25.4-37.6)
[2019-03-20 00:29] LABS: HEMATOCRIT 28.5 % (36.0-47.0); MEAN CORPUSCULAR HEMOGLOBIN 28.1 pg (27.0-33.0); MEAN CORPUSCULAR HGB CONC 33.3 g/dl (32.0-36.5); MEAN CORPUSCULAR VOLUME 84.3 fl (80.0-96.0); RED BLOOD COUNT 3.38 10^6/uL (4.00-5.40); WHITE BLOOD COUNT 18.4 10^3/uL (4.0-10.0)
[2019-03-20 00:46] LABS: ALBUMIN 1.6 GM/DL (3.2-5.2); ALT/SGPT 16 U/L (12-78); BILIRUBIN,TOTAL < 0.1 MG/DL (0.2-1.0); BLOOD UREA NITROGEN 21 MG/DL (7-18); CALCIUM LEVEL 6.8 MG/DL (8.5-10.1); CARBON DIOXIDE LEVEL 21 MEQ/L (21-32); CHLORIDE LEVEL 109 MEQ/L (98-107); CREATININE FOR GFR 2.98 MG/DL (0.55-1.30); GLOMERULAR FILTRATION RATE 21.1 (>60); GLUCOSE, FASTING 112 MG/DL (70-100); LDH LACTATE DEHYDROGENASE 663 U/L (84-246); POTASSIUM SERUM 3.9 MEQ/L (3.5-5.1); SODIUM LEVEL 140 MEQ/L (136-145); TOTAL PROTEIN 4.1 GM/DL (6.4-8.2); URIC ACID 7.7 MG/DL (2.6-6.0)
[2019-03-20 01:01] LABS: HEMOGLOBIN 9.5 g/dl (12.0-15.5); PLATELET COUNT, AUTOMATED 86 10^3/uL (150-450)
[2019-03-20] MEDS ORDERED: LACTATED RINGER'S 1000 ML IV STA ×2 (01:13→04:42)
[2019-03-20] MEDS ORDERED: CALCIUM GLUCONATE 1,000 MG in D5W MINI-BAG PLUS 100 ML IV PRN (01:15)
[2019-03-20] MEDS: LR 1,000 ML IV SCH ×2 (02:00→10:55)
[2019-03-20] MEDS: MAG Sulf (OBGYN) 20GM/500ML 20,000 MG in APPROPRIATE DILUENT 1 EA IV SCH ×2 (02:20→12:08)
[2019-03-20] MEDS: KETOROLAC 30 MG/ML VIAL (J1885) IV SCH (03:39)
[2019-03-20 06:19] LABS: CREATININE,RANDOM URINE 47.1 MG/DL
[2019-03-20 07:57] LABS: HEMATOCRIT 28.8 % (36.0-47.0); HEMOGLOBIN 9.6 g/dl (12.0-15.5); MEAN CORPUSCULAR HEMOGLOBIN 28.2 pg (27.0-33.0); MEAN CORPUSCULAR HGB CONC 33.3 g/dl (32.0-36.5); MEAN CORPUSCULAR VOLUME 84.7 fl (80.0-96.0); WHITE BLOOD COUNT 17.5 10^3/uL (4.0-10.0)
[2019-03-20 08:09] LABS: PLATELET COUNT, AUTOMATED 79 10^3/uL (150-450)
[2019-03-20] MEDS: PRENATAL VITAMINS CHEWABLE TABLET PO SCH (08:31)
[2019-03-20] MEDS: DOCUSATE SODIUM 100 MG CAP PO SCH ×2 (08:31→22:07)
[2019-03-20 08:36] LABS: ALBUMIN 1.6 GM/DL (3.2-5.2); BILIRUBIN,TOTAL 0.2 MG/DL (0.2-1.0); CALCIUM LEVEL 7.2 MG/DL (8.5-10.1); CREATININE FOR GFR 3.65 MG/DL (0.55-1.30); GLOMERULAR FILTRATION RATE 16.7 (>60); MAGNESIUM LEVEL 5.9 MG/DL (1.8-2.4); POTASSIUM SERUM 3.7 MEQ/L (3.5-5.1); TOTAL PROTEIN 4.1 GM/DL (6.4-8.2); URIC ACID 7.8 MG/DL (2.6-6.0)
--- NOTE | 2019-03-20 09:56 | NUR ---
Postoperative Day 1 Status post emergent primary low transverse section Indication: Acute placental abruption Complicated by: DIC, acute renal insufficiency, possible HELLP syndrome vs ATN Has received total of 5U prbc and 1 cryoprecipitate Magnesium sulfate IV for seizure / neuroprophylaxis started last night at 2g/h Subjective Pain is well controlled. Lochia is decreasing and minimal. Williamson in place Tolerating a regular diet. Ambulating without any assistance. Denies any subjective fever, chills, nausea, vomiting, headache, shortness of breath, chest pain. Complains of ongoing blurred vision/loss of clear vision, particularly out of her left eye. Denies scotomata. Objective Vitals: Hypertensive, normal heart rate, afebrile, low urine output (See I/O in [employer]) Heart: regular, rate, and rhythm. no murmurs/gallops/rubs Lungs: clear to auscultation bilaterally, no wheezes/crackles/rales/ronchi Abd: soft, nontender, nondistended, uterine fundus is 2cm below umbilicus and firm Incision: clean, dry, intact Ext: no significant edema, nontender, negative Devante's bilaterally. See [facility] for serial lab results Assessment/Plan: Postoperative day 1 status post emergent Primary low transverse section. Acute kidney injury: HELLP vs ATN. Evidence of DIC; clinically stable. -Routine /postoperative care -Maintain Williamson until UOP improves -Continue Mag sulfate for seizure/neuroprophylaxis (2g/hr) -Nephrology consulted to assess renal disease. -Non-contrast CT head ordered to evaluate source of neurological / visual symptoms -IV hypertensive for persistent severe range BPs. Dr. Bentley Cevallos D.O., F.A.C.O.G.
--- NOTE | 2019-03-20 10:41 | REP ---
Head CT without contrast: History: Visual loss. Severe preeclampsia. Comparison study: Comparison head CT October 02, 2018. CT findings: Bone window settings demonstrate an intact bony calvarium. There is no evidence of skull fracture or incidental bony calvarial lesion. The visualized paranasal sinuses appear clear. No intraorbital abnormality is seen. On soft tissue window setting images; the lateral, third, and fourth ventricles are normal in size and position. Calhoun-white differentiation pattern is normal above and below the tentorium. There are is no evidence of intracranial hemorrhage. No mass, edema, infarction, or midline shift is seen. No extra-axial fluid collection is appreciated. Impression: Negative noncontrast head CT. Electronically Signed by Jose Raul James MD 03/20/2019 10:33 A
[2019-03-20] MEDS: PERCOCET 5MG/325MG TAB PO PRN (10:56)
[2019-03-20] MEDS ORDERED: IBUPROFEN 800 MG TAB PO SCH (12:00)
[2019-03-20 12:19] LABS: AMORPHOUS SEDIMENT SMALL (NEGATIVE); APPEARANCE, URINE HAZY (CLEAR); BACTERIA, URINE AUTO NEGATIVE (NEGATIVE); BILIRUBIN, URINE AUTO NEGATIVE (NEGATIVE); BLOOD, URINE BLOOD 2+ (NEGATIVE); COLOR, URINE YELLOW (YELLOW); GLUCOSE, URINE (UA) AUTO NEGATIVE (NEGATIVE); KETONE, URINE AUTO NEGATIVE (NEGATIVE); LEUKOCYTE ESTERASE, URINE AUTO TRACE (NEGATIVE); MUCUS, URINE SMALL (NEGATIVE); NITRITE, URINE AUTO NEGATIVE (NEGATIVE); PROTEIN, URINE AUTO 2+ mg/dL (NEGATIVE); RBC, URINE AUTO 15 /HPF (0-3); SPECIFIC GRAVITY URINE AUTO 1.006 (1.002-1.035); SQUAMOUS EPITHELIAL CELL UR AU 1 /HPF (0-6); UROBILINOGEN, URINE AUTO 0.2 mg/dL (0.0-2.0); WBC, URINE AUTO 11 /HPF (0-3)
[2019-03-20 12:39] LABS: CHLORIDE,RANDOM URINE 54 MEQ/L; CREATININE,RANDOM URINE 28.7 MG/DL; POTASSIUM RANDOM URINE 9.8 MEQ/L; SODIUM,RANDOM URINE 65 MEQ/L
[2019-03-20] MEDS: LABETALOL HCL 100 MG/20 ML VIAL IV SCH ×2 (17:00→23:00)
[2019-03-20] MEDS ORDERED: ceFAZolin SOD 1 GM in D5W MINI-BAG PLUS 50 ML IV SCH (18:00)
[2019-03-20] MEDS: ONDANSETRON 4MG/2ML VIAL (J2405) IV PRN (19:29)
[2019-03-20 20:50] LABS: MAGNESIUM LEVEL 12.1 MG/DL (1.8-2.4)
[2019-03-20 21:32] LABS: ALBUMIN 1.7 GM/DL (3.2-5.2); CREATININE FOR GFR 4.11 MG/DL (0.55-1.30); GLOMERULAR FILTRATION RATE 14.6 (>60); PHOSPHORUS LEVEL 4.9 MG/DL (2.5-4.9); POTASSIUM SERUM 4.2 MEQ/L (3.5-5.1)
--- NOTE | 2019-03-20 21:47 | REPVR ---
EXAM: XR Chest, 1 View EXAM DATE/TIME: 03/20/2019 8:38 PM CLINICAL HISTORY: 23 years old, female; Other: In add exam info; Additional info: R/O pulmonary edema. Pre eclampsia, hellp SX, SOB TECHNIQUE: Imaging protocol: XR of the chest, 1 view. COMPARISON: No relevant prior studies available. FINDINGS: Lungs: Mild interstitial prominence noted bilaterally. Pleural space: Minimal blunting of costophrenic angles bilaterally. Heart/Mediastinum: Unremarkable. No cardiomegaly. Bones/joints: Unremarkable. Other findings: The patient is rotated to the left. IMPRESSION: Mild interstitial prominence noted bilaterally. Small bilateral pleural effusion/pleural thickening. These findings could represent early pulmonary edema Electronically signed by: Iveth Caal On 03/20/2019 21:47:01 PM
[2019-03-21] VITALS (8 sets, daily range): BP systolic 124–155; BP diastolic 72–88
[2019-03-21] MEDS: ONDANSETRON 4MG/2ML VIAL (J2405) IV PRN (01:32)
[2019-03-21] MEDS: LABETALOL HCL 100 MG/20 ML VIAL IV SCH ×2 (05:00→11:00)
[2019-03-21] MEDS ORDERED: ONDANSETRON 4 MG ORAL DISINTEGRATING TAB (Q0162 PER 1MG) PO PRN (06:30)
[2019-03-21] MEDS: PROMETHAZINE 25 MG TAB PO PRN (06:39)
[2019-03-21 07:18] LABS: HEMATOCRIT 30.1 % (36.0-47.0); HEMOGLOBIN 10.1 g/dl (12.0-15.5); MEAN CORPUSCULAR HEMOGLOBIN 27.4 pg (27.0-33.0); MEAN CORPUSCULAR HGB CONC 33.6 g/dl (32.0-36.5); MEAN CORPUSCULAR VOLUME 81.6 fl (80.0-96.0); PLATELET COUNT, AUTOMATED 101 10^3/uL (150-450); RED BLOOD COUNT 3.69 10^6/uL (4.00-5.40)
[2019-03-21 07:41] LABS: ALBUMIN 1.7 GM/DL (3.2-5.2); BILIRUBIN,TOTAL 0.2 MG/DL (0.2-1.0); CALCIUM LEVEL 7.9 MG/DL (8.5-10.1); CREATININE FOR GFR 4.47 MG/DL (0.55-1.30); GLOMERULAR FILTRATION RATE 13.2 (>60); POTASSIUM SERUM 4.3 MEQ/L (3.5-5.1); TOTAL PROTEIN 5.2 GM/DL (6.4-8.2)
[2019-03-21] MEDS: DOCUSATE SODIUM 100 MG CAP PO SCH ×2 (09:00→19:52)
[2019-03-21] MEDS: PRENATAL VITAMINS CHEWABLE TABLET PO SCH (09:32)
--- NOTE | 2019-03-21 10:54 | CR ---
DATE OF CONSULTATION: 03/17/2019 REQUESTING PHYSICIAN: Dr. Cevallos CONSULTING PHYSICIAN: Dr. Sandoval REASON FOR CONSULTATION: Management of acute renal failure. CHIEF COMPLAINT: The patient presented to the emergency room yesterday with severe abdominal pain with 36 weeks of gestation HISTORY OF PRESENT ILLNESS: Daniella Hutchins is a 23-year-old female who presented to the hospital who is 2, para 1 she was at 36 weeks of gestation and she presented to the emergency room with severe abdominal pain yesterday. On further examination she was found to have a bradycardia and while she was in the emergency room she suddenly felt a gush of fluid and large amount of vaginal bleeding was noted. The patient was emergently taken to the operating room (OR) for ( section (). She was found to have placental abruption. She had a disseminated intravascular coagulation (DIC) picture during the OR because of excessive bleeding. She required about 5 units of packed red blood cells (PRBC) transfusion and 10 units of cryoprecipitate. No fresh frozen plasma (FFP) was given. The patient became anuric after the surgery. She was very hypertensive and she also complained of headache and decreased vision in the left eye. Gynecology team started treating her as possible hemolysis, elevated liver enzymes and low platelet count (HELLP) syndrome. She is getting the magnesium sulfate infusion because of oliguria and renal failure. Nephrology service was called for further help in the management of this patient. Her latest creatinine is at 3.6, her urine output was around 40-50 mL an hour. I saw and evaluated the patient today morning at the bedside. She had just come back after getting the CAT scan done and she reported that she still has decreased vision in the left eye. She was otherwise afebrile and hemodynamically stable and she was able to provide the history to me. She still reports of pain at the surgical site. PAST MEDICAL HISTORY: Past medical history of: 1. Anxiety and depression. 2. Herpes simplex virus infection. She was taking Valcyte for that. 3. History of drug abuse including heroin and marijuana in the past. She claims to be clean at this point. She denies history of high blood pressure or proteinuria during the PAST SURGICAL HISTORY: No significant past surgical history. The patient had emergent done yesterday. ALLERGIES: The patient is allergic to LACTOSE, LATEX and ORANGES. FAMILY HISTORY: No significant family history of end-stage renal disease requiring dialysis. There is history of diabetes and heart disease in the family. SOCIAL HISTORY: The patient is residing at the [facility]. She has history of marijuana and heroin abuse in the past. REVIEW OF SYSTEMS: CONSTITUTIONAL: The patient denies any fevers and chills. EYES: She reports a decreased vision in the left eye. ENT: She denies any dysphagia or odynophagia. CARDIOVASCULAR: She denies any chest pain or palpitation. RESPIRATORY: She denies any shortness of breath. GASTROINTESTINAL (GI): She denies any nausea, vomiting. GENITOURINARY (): She reports pain at the surgical site. MUSCULOSKELETAL: She denies any muscle aches and pains. CENTRAL NERVOUS SYSTEM (BANKMAN): She reports decreased vision in the left eye otherwise she denies any weakness. She does report mild amount of headache but that has resolved. PSYCHIATRIC: She does report history of anxiety and depression. ENDOCRINE: She denies any history of hyperthyroidism or hypothyroidism. HEMATOLOGY ONCOLOGY: She reports history of placental abruption and vaginal bleeding yesterday. All other review of systems is negative. PHYSICAL EXAMINATION GENERAL: The patient is awake, alert, oriented x3, sitting up in the bed in no apparent distress. VITAL SIGNS: When I saw the patient her temperature was 97.9 degrees Fahrenheit, blood pressure 136/81, pulse is 75, respiratory rate of 18, saturating 99% on room air. INTAKE AND OUTPUT: The patient's urine output was around 40-50 mL an hour when I saw her. HEAD AND NECK EXAM: Extraocular muscles intact. The pupils equally round and reactive to light. The patient has blurry vision on the left eye. Mucous membranes are moist. Neck is supple. There is no jugular venous distention (JVD). CARDIOVASCULAR: S1, S2, regular rate. No edema of the bilateral lower extremities. RESPIRATORY: Chest is clear to auscultation bilaterally. Bilateral equal air entry. No rales or rhonchi. ABDOMEN: Soft, mildly tender to deep palpation in the suprapubic region at the site. No organomegaly was noted. MUSCULOSKELETAL: No clubbing or cyanosis. Pulses are 2+. CENTRAL NERVOUS SYSTEM (BANKMAN): No focal deficit apart from the left and decreased vision left eye. Power is 5/5 in all extremities. LABORATORY REVIEW: Complete blood count (CBC) showed a white blood cell (WBC) of 17.5, hemoglobin 9.6, lowest hemoglobin was 7.4 yesterday, platelets are 79. Basic metabolic panel (BMP) done today morning showed sodium 138, potassium 3.7, chloride 106, bicarbonate 21, BUN 23, creatinine is 3.6. Uric acid 7.8, calcium 7.2, magnesium 5.9, AST highest number was 74 right now it is 59, ALT is 10, lactate dehydrogenase (LDH) is 691, albumin is 1.6. TOXICOLOGY: Urine toxicology screen is all negative. SEROLOGY: Syphilis serology is negative. IMAGING STUDIES: A CAT scan of the head was done which showed negative noncontrast head CT. CURRENT INPATIENT MEDICATIONS: The patient's medications were all reviewed by me. - calcium gluconate - she was given calcium gluconate overnight. - Ancef - she was given Ancef 2 grams intravenous (IV) every eight hourly but I have decreased the dose because of acute renal failure to 1 gram every 12 hourly. - ketorolac - the patient got ketorolac 30 mg IV every six hourly yesterday for a total of four doses. It has been stopped now. - labetalol - the patient got one dose of labetalol 20 mg IV. - lactated Ringer - she required lactated Ringer boluses. - magnesium sulfate - she was getting magnesium sulfate when I saw her. ASSESSMENT: A 23-year-old female status post emergent postoperative day number one for placental abruption, severe preeclampsia, partial hemolysis, elevated liver enzymes and low platelet count (HELLP) syndrome and acute renal failure. PLAN: 1. Acute renal failure. It is most likely secondary to a combination of partial HELLP syndrome and use of Toradol for pain yesterday. However, the patient is nonoliguric at this point. She is making around 50-60 mL of urine an hour. I am hopeful that her renal function with start improving over the next 24-48 hours. The patient is able to eat and drink and she was hypertensive in the morning. Once the magnesium sulfate infusion is stopped IV fluids can be stopped as well. Electrolytes are within the acceptable range. No urgent need of hemodialysis at this point. 2. Partial hemolysis (HELLP syndrome. The patient had elevated AST; highest number is 74. She had anemia. She had thrombocytopenia with lowest platelet count of 79,000. Partial elevation of lactate dehydrogenase (LDH) at 830 which is more than 600, total bilirubin was normal so patient may criteria for partial HELLP syndrome. She has already been given magnesium sulfate by the gynecology team. She was given a dose of labetalol 20 mg IV today morning. Blood pressure is optimal. I have started the patient on labetalol 10 mg IV every 6 hourly, hold for systolic blood pressure less than 140 or heart rate less than 60, try to maintain systolic blood pressure less than 140. 3. Placental abruption status post emergent . Because of the acute renal failure, Ancef dose has been decreased to 1 gram IV every 12 hourly. Once the renal function starts improving, I would increase the Ancef dose. 4. Pain optimization. Avoid use of nonsteroidal anti-inflammatory drug (NSAID) pain medications in acute renal failure. I have stopped the ibuprofen. The patient can get the Percocet as needed. 5. Decreased vision in the left eye. The patient got the emergent CT scan done which did not show any pathology. I suspect the patient has retinal detachment in the left eye which is associated with HELLP syndrome sometimes. The patient needs to be evaluated by ophthalmology. Thank you for involving me in the care of this patient. I shall be happy to follow the patient along with you tomorrow morning.
[2019-03-21] MEDS: LABETALOL 200 MG TAB PO SCH ×2 (14:39→21:49)
[2019-03-21] MEDS: CALCIUM/VITAMIN D 500 MG TAB PO SCH ×2 (14:42→19:52)
--- NOTE | 2019-03-21 16:53 | NUR ---
Progress note S: C/o loss of vision in left eye. Has some peripheral vision. No eye pain O: UN=119/88 P=90 AF O2 sat=96% RA NAD Lungs CTA CVS: RRR Abd: NT, FF ext: 2+ edema LE's Mag=10.7 Ca+=7.1 A/P 23 yo POD#2 s/p for abruption due to preeclampsia/HELLP syndrome Nephrology involved due to renal failure secondary to preeclampsia Will consult Ophthalmology due to vision loss due to possibility of retinal detachment Continue Williamson catheter due to large diuresis Magnesium is off as of last night Terry Roberts MD
--- NOTE | 2019-03-21 20:28 | IPN ---
DATE: 03/21/2019 SUBJECTIVE: The patient was seen and examined at the bedside today, morning. Last 24-hour events were noted. The patient was short of breath yesterday, so her intravenous (IV) fluids were stopped. Her magnesium levels were also high, so magnesium infusion was also held last night. She reports that she is feeling better. Her blood pressures are optimal. She has not requiring IV labetalol. The patient is nonoliguric. She is making very good amount of urine. However, there is no improvement in the creatinine levels. Creatinine still continues to trend up. Her hemoglobin is stable today as compared with yesterday and her platelet counts are also improving. LFTs are getting better now. The patient still continues to complain of decreased vision in the left eye. She reports that she feels like her left eye has a contact lens in front of it which has morved, and she is partially seeing her left lateral field of vision, and she cannot see clearly in the nasal part of the left eye visual field. OBJECTIVE: Vital signs: Temperature is 98 degrees Fahrenheit, blood pressure is 140/88, pulse is 90, respiratory rate is 18, saturating 96% on room air. Intake and output: Urine output recorded as 2.5 liters yesterday, 800 mL so far today since overnight. Weight on the bed scale is not available. PHYSICAL EXAMINATION: General: The patient is awake, alert, oriented times three, sitting up in the bed in no apparent distress. Head and neck exam: Pupils are equally round and reactive to light. I tried to do the funduscopic examination, but because eyes were not dilated, I could not see the fundus very well. However, the patient does have decreased vision in the inferomedial field of vision of the left eye. Neck is supple. There is no jugular venous distention (JVD). Cardiovascular: S1, S2, regular rate. No edema of the bilateral lower extremities. Respiratory: Chest is clear to auscultation bilaterally. Bilateral equal air entry. No rales or rhonchi. Abdomen: Soft, mildly tender to deep palpation at the surgical site. She has positive bowel sounds. Musculoskeletal: No clubbing or cyanosis. Pulses are 2+. Genitourinary: She has an indwelling Williamson catheter. She has very light, pale-colored urine in the back. Central nervous system (POTLINE MONITOR): No focal deficit apart from decreased vision in the left eye. Power is 5/5 in all extremities. Skin: No rashes or ulcers. No bruises. LAB REVIEW: CBC showed a WBC of 18, hemoglobin is 10.1, platelets are 101. BMP done today, morning, showed sodium 136, potassium 4.3, chloride 101, bicarbonate 22, BUN 31, creatinine is 4.4, it was 4.1 yesterday, calcium of 7.9, ionized calcium is 4.4, which is slightly below the normal range. Magnesium is 10.7, AST is 45, which is better than yesterday, ALT is 7, alkaline phosphatase is 109, albumin is 1.7. CURRENT INPATIENT MEDICATIONS: The patient's medications were all reviewed by me. Her cefazolin has been stopped, Ringer's lactate has been stopped as well. She is on Colace 100 mg by mouth twice a day. She was on labetalol with holding parameters. She has not required any dose since yesterday. She continues to be on multivitamins. No other change in the medications today as compared with yesterday. ASSESSMENT/PLAN: 1. Acute nonoliguric renal failure. The patient developed renal failure after emergent section () for placental abruption and distress secondary to severe preeclampsia and HELLP syndrome. The patient also got doses of Toradol after the surgery. However, I see that it is a good sign that the patient is nonoliguric. I am hopeful that the patient's creatinine has plateaued now and her renal function should start improving. Volume status is optimal. Most of the electrolytes are within acceptable range, acid-base status is okay. There is no urgent of renal replacement therapy. I will continue to monitor daily labs and daily urine output. 2. Partial HELLP syndrome. The patient's liver function tests are improving, platelet count has improved to 101,000, hemoglobin level is stable. Clinically, she is feeling much better. Her IV magnesium has been stopped because of high levels. She is not requiring IV labetalol. The rest of the management is as per gynecology team. 3. Decreased vision in the left eye because of HELLP syndrome and placental abruption. There is very high likelihood the patient might have developed retinal detachment. The patient needs to be evaluated by ophthalmology service. 4. Hypomagnesemia. It is secondary to magnesium infusion for severe preeclampsia and HELLP syndrome. Magnesium level is slowly improving, and it should get within the normal range over the next 24-48 hours. 5. Hypocalcemia. It is secondary to high dose of magnesium use. Ionized calcium is 4.4, which is almost close to normal. I am going to give her one dose of IV calcium; that should optimize her calcium levels. 6. Acute blood loss anemia and HELLP syndrome, status post multiple transfusions. The patient's hemoglobin is stable at 10. No further need of blood transfusion at this point. Plan of care was discussed with the as400 operator, Dr. Roberts, today.
[2019-03-22] VITALS (10 sets, daily range): BP systolic 119–176; BP diastolic 63–94
[2019-03-22] MEDS: PERCOCET 5MG/325MG TAB PO PRN ×4 (02:04→22:16)
--- NOTE | 2019-03-22 07:20 | NUR ---
Progress note S: Still with vision loss left eye O: QB=917/63 P=63 AF NAD Abd: NT, ff ext: NT A/P 23 yo POD #3 s/p for preeclampsia/HELLP syndrome with abruption Pt has retinal detachment; will consult retina specialists today Labs pending Expect renal function to begin to improve Terry Roberts MD
[2019-03-22 08:00] LABS: HEMATOCRIT 25.1 % (36.0-47.0); HEMOGLOBIN 8.4 g/dl (12.0-15.5); MEAN CORPUSCULAR HEMOGLOBIN 28.6 pg (27.0-33.0); MEAN CORPUSCULAR HGB CONC 33.5 g/dl (32.0-36.5); MEAN CORPUSCULAR VOLUME 85.4 fl (80.0-96.0); PLATELET COUNT, AUTOMATED 102 10^3/uL (150-450); RED BLOOD COUNT 2.94 10^6/uL (4.00-5.40); WHITE BLOOD COUNT 12.3 10^3/uL (4.0-10.0)
[2019-03-22] MEDS: DOCUSATE SODIUM 100 MG CAP PO SCH ×2 (08:43→20:59)
[2019-03-22] MEDS: CALCIUM/VITAMIN D 500 MG TAB PO SCH ×2 (08:43→21:00)
[2019-03-22] MEDS: PRENATAL VITAMINS CHEWABLE TABLET PO SCH (08:43)
[2019-03-22] MEDS: LABETALOL 200 MG TAB PO SCH ×2 (08:44→21:04)
[2019-03-22] MEDS: MIRALAX *UNIT DOSE* 17GM PACKET PO SCH (08:45)
[2019-03-22 08:51] LABS: ALBUMIN 1.4 GM/DL (3.2-5.2); BILIRUBIN,TOTAL 0.2 MG/DL (0.2-1.0); CALCIUM LEVEL 7.8 MG/DL (8.5-10.1); CREATININE FOR GFR 4.12 MG/DL (0.55-1.30); GLOMERULAR FILTRATION RATE 14.5 (>60); MAGNESIUM LEVEL 6.8 MG/DL (1.8-2.4); POTASSIUM SERUM 3.4 MEQ/L (3.5-5.1); TOTAL PROTEIN 4.2 GM/DL (6.4-8.2)
[2019-03-22] MEDS: POTASSIUM CHLORIDE 10 MEQ SR TABLET PO SCH ×2 (09:43→21:00)
--- NOTE | 2019-03-22 10:27 | IPNPDOC ---
Text Note Date of Service The patient was seen on 03/22/19. NOTE TC to [facility] [phone]. Spoke with Rupa regarding Dr Zoë chan. States Dr Camp is in [place] today, . Called [place]. Spoke with Dr Camp. Stated pt doesn't need to be transferred at this time, the condition should resolve itself over time. However she will need outpatient referral to [facility]. VS,Fishbone, I+O VS, Fishbone, I+O Laboratory Tests 03/22/19 07:25 Red Blood Count 2.94 L, Mean Corpuscular Volume 85.4, Mean Corpuscular Hemoglobin 28.6, Mean Corpuscular Hemoglobin Concent 33.5, Red Cell Distribution Width 16.9 H, Calcium Level 7.8 L, Aspartate Amino Transf (AST/SGOT) 51 H, Alanine Aminotransferase (ALT/SGPT) 11 L, Alkaline Phosphatase 95, Total Bilirubin 0.2, Total Protein 4.2 L, Albumin 1.4 L Vital Signs Date Time Temp Pulse Resp B/P (MAP) Pulse Ox O2 Delivery O2 Flow Rate FiO2 03/22/19 09:15 18 03/22/19 08:42 81 135/94 (108) 03/22/19 06:00 97.9 03/21/19 10:00 96 03/19/19 08:02 10 I&O- Last 24 Hours up to 6 AM 03/22/19 06:00 Intake Total 900 ml Output Total 975 ml Balance -75 ml Flora Jade CNM Mar 22, 2019 10:27
[2019-03-22] MEDS ORDERED: TORSEMIDE 20 MG TAB PO ONE (11:00)
[2019-03-22 11:16] LABS: PERCENT SATURATION 13.8 % (13.2-45.0)
[2019-03-22] MEDS ORDERED: LABETALOL 100 MG TAB PO ONE ×2 (15:00→23:30)
--- NOTE | 2019-03-22 19:45 | IPN ---
DATE: 03/22/2019 SUBJECTIVE The patient was seen and examined at the bedside today morning in [facility]. The patient is awake and alert. She does not have any IV line. Most of her medications are being given oral now. She is nonoliguric. I see slight improvement in the renal function today as compared with yesterday, creatinine has trended down to 4.1. The patient was seen by ophthalmology and recommendations were made for the patient to see retinal surgeon as outpatient. Her blood pressures are still labile and she had some high blood pressure readings overnight. She is currently getting labetalol 200 mg by mouth twice a day, magnesium levels are improving now. The patient complains of mild lower extremity edema. There is no change in the left eye visual field defects. OBJECTIVE Vital signs: Temperature is 97.8 degrees Fahrenheit. Blood pressure is 154/90, pulse is 80, respiratory rate of 18, saturating 98% on room air. Intake and output: Urine output recorded is 1.5 liters yesterday. There is no urine output recorded since overnight. Weight in the bed scale is not available. PHYSICAL EXAMINATION General: The patient is awake, alert, oriented times three, laying in bed in no apparent distress. Head and neck examination: Pupils are equally round and reactive to light. Left eye vision is decreased. Mucous membranes are moist. Neck is supple. There is no JVD. Cardiovascular: S1, S2, regular rate. 2+ edema of the bilateral lower extremities. Respiratory: Chest is clear to auscultation bilaterally. Bilateral equal air entry. No rales or rhonchi. Abdomen: Soft. Positive bowel sounds. Mildly tender in the suprapubic region at the surgical site. Musculoskeletal: No clubbing or cyanosis. Pulses are 2+. Genitourinary: Williamson catheter has been removed. STEWARD/STEWARDESS: No focal deficit apart from decreased vision in the left eye. Power is 5/5 in all extremities. Skin: No rashes or ulcers. LAB REVIEW: CBC showed a WBC of 12.3, hemoglobin is 8.4, platelets are 102. BMP showed sodium 137, potassium 3.4, chloride 104, bicarb 22, BUN 40, creatinine is 4.1, it was 4.4 yesterday. Calcium 7.8, magnesium is 6.8, iron 36, TIBC 260, transferrin saturation 13.8, total bilirubin 0.2, AST 51, ALT is 11, albumin is 1.4. CURRENT INPATIENT MEDICATIONS The patient's medications were all reviewed by me. She was started on calcium tablets 500 mg by mouth twice a day. She is currently on labetalol 200 mg by mouth twice a day. The patient was started on potassium chloride 20 mEq by mouth twice a day. I have ordered one dose of torsemide 40 mg by mouth times one today morning. ASSESSMENT/PLAN 1. Acute nonoliguric renal failure. The patient's creatinine has plateaued. No her renal function started improving, creatinine is down to 4.1. The patient has lower extremity edema. I have ordered one dose of torsemide 40 mg by mouth to be given today morning. 2. Partial HELLP syndrome. The patient is clinically improving. LFTs are stable. Total bilirubin is normal. Platelet count is also stable. Hypertension is being managed as mentioned below. 3. Hypertension. The patient is currently on labetalol 100 mg by mouth twice a day. If she remains hypertensive with this dose, then labetalol dose will be increased tonight. She is also being given a dose of loop diuretic and optimization of fluid status would also help lower the blood pressure. 4. Lower extremity edema. The patient will be given a dose of torsemide 40 mg by mouth times one dose. 5. Hypokalemia. The patient is being given potassium chloride 20 mEq by mouth times two doses, one in the morning, one in the evening. 6. Hypocalcemia. The patient does not have any IV line. We could not give her IV calcium gluconate. She has been started on oral calcium tablets. 7. Hypermagnesemia. Magnesium level is trending down. Continue to monitor for now. 8. Acute blood loss anemia. Hemoglobin is 8.4 which is optimal. Iron levels are adequate. If hemoglobin drops below 8 then she can be given one unit of PRBC transfusion. 9. Decreased vision in left eye with HELLP syndrome and hypertension. The patient was seen by ophthalmology. She was she will need to see a retinal surgeon as outpatient, optimize the fluid status and hypertension at this point.
[2019-03-23] VITALS (10 sets, daily range): BP systolic 122–184; BP diastolic 68–110
[2019-03-23] MEDS: PERCOCET 5MG/325MG TAB PO PRN ×4 (06:06→22:39)
--- NOTE | 2019-03-23 07:10 | IPNPDOC ---
Text Note Date of Service The patient was seen on 03/23/19. NOTE PO #4 Adequate pain management. OOB, voiding. Output not recorded for most of the day yesterday. Resumed over night. Has required two rescue doses of labetalol 100mg for elevated pressures 170's/90's. Awake, alert Fundus firm, NT Steristrips intact. Wound well approximated. Lochia rubra light without odor Will consult physician regarding antihypertensive regimen VS,Fishbone, I+O VS, Fishbone, I+O Laboratory Tests 03/22/19 07:25 Red Blood Count 2.94 L, Mean Corpuscular Volume 85.4, Mean Corpuscular Hemoglobin 28.6, Mean Corpuscular Hemoglobin Concent 33.5, Red Cell Distribution Width 16.9 H, Calcium Level 7.8 L, Aspartate Amino Transf (AST/SGOT) 51 H, Alanine Aminotransferase (ALT/SGPT) 11 L, Alkaline Phosphatase 95, Total Bilirubin 0.2, Total Protein 4.2 L, Albumin 1.4 L Vital Signs Date Time Temp Pulse Resp B/P (MAP) Pulse Ox O2 Delivery O2 Flow Rate FiO2 03/23/19 06:06 20 03/23/19 06:00 97.6 80 146/78 (100) 98 03/19/19 08:02 10 I&O- Last 24 Hours up to 6 AM 03/23/19 06:00 Intake Total 860 ml Output Total 1400 ml Balance -540 ml Flora Jade CNM Mar 23, 2019 07:09
[2019-03-23 07:15] LABS: BASO % 0.1 % (0.0-1.0); EOS # 0.5 10^3/uL (0.0-0.50); EOS % 4.6 % (0.0-3.0); HEMOGLOBIN 7.9 g/dl (12.0-15.5); LYMPH # 2.2 10^3/uL (1.5-6.5); LYMPH % 22.5 % (24.0-44.0); MEAN CORPUSCULAR HEMOGLOBIN 27.8 pg (27.0-33.0); MEAN CORPUSCULAR HGB CONC 32.9 g/dl (32.0-36.5); MEAN CORPUSCULAR VOLUME 84.5 fl (80.0-96.0); MONO # 0.5 10^3/uL (0.0-0.8); MONO % 5.1 % (0.0-5.0); NEUTROPHILS # 6.4 10^3/uL (1.8-7.7); PLATELET COUNT, AUTOMATED 129 10^3/uL (150-450); RED BLOOD COUNT 2.84 10^6/uL (4.00-5.40); WHITE BLOOD COUNT 9.8 10^3/uL (4.0-10.0)
[2019-03-23 07:40] LABS: ALBUMIN 1.7 GM/DL (3.2-5.2); BILIRUBIN,TOTAL 0.2 MG/DL (0.2-1.0); CALCIUM LEVEL 8.2 MG/DL (8.5-10.1); CREATININE FOR GFR 3.53 MG/DL (0.55-1.30); GLOMERULAR FILTRATION RATE 17.4 (>60); POTASSIUM SERUM 4.3 MEQ/L (3.5-5.1); TOTAL PROTEIN 4.3 GM/DL (6.4-8.2)
[2019-03-23] MEDS: CALCIUM/VITAMIN D 500 MG TAB PO SCH ×2 (08:27→20:49)
[2019-03-23] MEDS: DOCUSATE SODIUM 100 MG CAP PO SCH ×2 (08:27→20:48)
[2019-03-23] MEDS: PRENATAL VITAMINS CHEWABLE TABLET PO SCH (08:27)
[2019-03-23] MEDS: MIRALAX *UNIT DOSE* 17GM PACKET PO SCH (08:28)
[2019-03-23] MEDS: LABETALOL 100 MG TAB PO SCH ×2 (08:28→21:04)
[2019-03-23 10:09] LABS: MAGNESIUM LEVEL 4.1 MG/DL (1.8-2.4)
[2019-03-23] MEDS ORDERED: TORSEMIDE 20 MG TAB PO ONE (12:00)
[2019-03-23] MEDS: FERROUS GLUCONATE 324 MG TAB PO SCH (13:29)
--- NOTE | 2019-03-23 13:41 | IPN ---
DATE: 03/23/2019 SUBJECTIVE: The patient was seen and examined at the bedside today, morning. She was given a dose of torsemide yesterday. She reports that she still has lower extremity edema, but it is getting better today. Left eye vision is also slightly better today as compared with yesterday. She is still hypertensive. She is requiring extra doses of labetalol. Her labetalol dose has already been increased by the primary team. Her anemia is worse. Hemoglobin has dropped to 7.9 now. Renal function continues to improve. Creatinine has trended down to 3.5. OBJECTIVE: Vital signs: Temperature is 98 degrees Fahrenheit. Blood pressure is 122/80, pulse is 81, respiratory rate of 16, saturating 96% on room air. Her blood pressure today, morning, before medication was 160/80. Intake and output: Urine output since overnight is 1.8 liters. Weight on the bed scale is 71.4 kg. PHYSICAL EXAMINATION: General: The patient is awake, alert, oriented times three, sitting up in the bed in no apparent distress. Head and Neck Exam: Pupils are equally round and reactive to light. Left eye vision is decreased. Mucous membranes are moist. Neck is supple. There is no jugular venous distention (JVD). Cardiovascular: S1, S2, regular rate, 2+ edema of the bilateral lower extremities. Respiratory: Chest is clear to auscultation bilaterally. Bilateral equal air entry. No rales or rhonchi. Abdomen: Soft, mildly tender to deep palpation in the suprapubic region at the surgical site. Musculoskeletal: No clubbing or cyanosis. Pulses are 2+. Central Nervous System (FLASK PUSHER): No focal deficit. Power is 5/5 in all extremities. LAB REVIEW: CBC showed a WBC of 9.8, hemoglobin 7.9, platelets are 129. BMP showed sodium 140, potassium 4.3, chloride 107, bicarbonate 24, BUN 44, creatinine is 3.5, it was 4.1 yesterday, calcium 8.2, magnesium is 4.1, albumin 1.7. CURRENT INPATIENT MEDICATIONS: The patient's medications were all reviewed by me. Her labetalol dose has been increased to 300 mg by mouth twice a day. I have started the patient on ferrous gluconate 324 mg by mouth daily. I have ordered another dose of torsemide 40 mg by mouth times one dose today, morning. ASSESSMENT/PLAN: 1. Acute nonoliguric renal failure. Patient's renal function continues to gradually improve. Creatinine is trending down. Electrolytes are improving. Given lower extremity edema and hypertension, I have ordered another dose of torsemide 40 mg. 2. Acute blood loss anemia. The patient's hemoglobin is down to 7.9. Her ferritin level is okay. However, her transferrin saturation is low. I wanted to give her a dose of Venofer, but she does not have any IV access. I have started her on oral iron tablet in addition to the vitamin that she is already taking. 3. Hypertension. The patient is recovering from severe preeclampsia and partial HELLP syndrome. Her labetalol dose has been increased to 300 mg by mouth twice a day. Blood pressure levels are improving. Continue the diuretic as well to help improve the volume status. 4. Hypokalemia. Potassium level has improved with KCl. 5. Hypermagnesemia. Magnesium level is slowly trending down with improving renal function. 6. Decreased vision in left eye. The patient reports that vision is getting better. Continue the optimization of hypertension and lower extremity edema. The patient will follow up with ophthalmology as an outpatient.
[2019-03-23] MEDS ORDERED: LABETALOL 100 MG TAB PO STA (23:16)
[2019-03-24] VITALS (9 sets, daily range): BP systolic 133–169; BP diastolic 72–92
[2019-03-24] MEDS: PERCOCET 5MG/325MG TAB PO PRN ×3 (07:28→22:52)
[2019-03-24] MEDS: LABETALOL 200 MG TAB PO SCH ×2 (08:14→20:27)
[2019-03-24] MEDS: FERROUS GLUCONATE 324 MG TAB PO SCH (08:15)
[2019-03-24] MEDS: DOCUSATE SODIUM 100 MG CAP PO SCH ×2 (08:15→20:26)
[2019-03-24] MEDS: PRENATAL VITAMINS CHEWABLE TABLET PO SCH (08:15)
[2019-03-24] MEDS: CALCIUM/VITAMIN D 500 MG TAB PO SCH ×2 (08:15→20:26)
--- NOTE | 2019-03-24 08:15 | NUR ---
- Overnight, increased labetalol 400mg BID S: Doing well. Has moderate pain control. Denies headache or abd pain. Vision in left eye has significantly improved. O: vs: 143/81, 16, 84, AF Gen: well appearing abd: soft, appropriately tender, FF@ U-3 incision: ecchymosis long incision. C/D/I well approximated ext: neg calf tenderness neuro: grossly intact Labs: pending A/P: POD # 5 s/p emergent c/s for placenta abruptions / DIC -stable. Cont postop care -severe preeclampsia / HEELP - improving. Continue with labetalol titration - Rental detachment - f/u at discharge with retina specialist Latisha Vinson MD
[2019-03-24 08:41] LABS: HEMATOCRIT 25.5 % (36.0-47.0); HEMOGLOBIN 8.4 g/dl (12.0-15.5); MEAN CORPUSCULAR HEMOGLOBIN 28.2 pg (27.0-33.0); MEAN CORPUSCULAR HGB CONC 32.9 g/dl (32.0-36.5); MEAN CORPUSCULAR VOLUME 85.6 fl (80.0-96.0); PLATELET COUNT, AUTOMATED 188 10^3/uL (150-450); RED BLOOD COUNT 2.98 10^6/uL (4.00-5.40); WHITE BLOOD COUNT 9.2 10^3/uL (4.0-10.0)
[2019-03-24] MEDS: MIRALAX *UNIT DOSE* 17GM PACKET PO SCH (09:00)
[2019-03-24 09:12] LABS: ALBUMIN 1.8 GM/DL (3.2-5.2); BILIRUBIN,TOTAL 0.3 MG/DL (0.2-1.0); CALCIUM LEVEL 8.2 MG/DL (8.5-10.1); CREATININE FOR GFR 2.77 MG/DL (0.55-1.30); POTASSIUM SERUM 3.9 MEQ/L (3.5-5.1); TOTAL PROTEIN 4.9 GM/DL (6.4-8.2)
[2019-03-24] MEDS: NIFEdipine 30 MG XL TAB PO SCH (18:49)
[2019-03-24] MEDS: PROMETHAZINE 25 MG TAB PO PRN (22:52)
[2019-03-25] VITALS (9 sets, daily range): BP systolic 120–166; BP diastolic 65–110
--- NOTE | 2019-03-25 03:36 | IPN ---
DATE OF SERVICE: 03/24/2019 SUBJECTIVE: Daniella was seen and examined this morning at the bedside. She reports her blurry vision is improving. She complains of ongoing leg edema. Blood pressures remain uncontrolled. I note gynecology did recently up titrate her labetalol dose. Her renal function continues to show improvement and her hemoglobin and platelets have both come up as well. She denies any chest pain or shortness of breath. PHYSICAL EXAMINATION : VITAL SIGNS: Temperature 98.8, pulse 89, respiratory rate 18, blood pressure 173/103, saturating comfortably on room air. Intake yesterday was 2570. Urine output yesterday was 4.8 liters, net negative 2.2 liters. Weight in the bed scale today is 71.3 kg. GENERAL: The patient is seen lying fairly flat in bed awake, alert, oriented x3 in no apparent distress. Extraocular muscles are intact and the mucous membranes are moist. The neck is supple. There is no jugular venous distension. CARDIAC: S1, S2, regular rate and rhythm. There is 2+ edema in the lower extremities, mostly prominent in the feet. RESPIRATORY: Shows clear to auscultation bilaterally. No crackle or rales. ABDOMEN: Abdomen is soft. There is a suprapubic surgical site with some local bruising. MUSCULOSKELETAL: No clubbing or cyanosis. Peripheral pulses are intact. SKIN: Shows no rashes and normal temperature. NEUROLOGIC: There are no focal deficits. LABORATORY DATA: Sodium 139, potassium 3.9, BUN 44, creatinine 2.7, AST is down to 60, albumin is up to 1.8, hemoglobin 8.4, platelet 188. INPATIENT MEDICATIONS: - nifedipine XL - I started the patient on nifedipine XL 30 mg by mouth daily - labetalol - gynecology increased her labetalol to 400 mg by mouth twice a day The remainder of medications are unchanged from prior. PROBLEMS: 1. Nonoliguric renal failure. The patient's renal function continues to improve. Her acute kidney injury was felt to be secondary to pre-eclampsia, hemolysis, elevated liver enzymes and low platelet count (HELLP) syndrome, intravenous (IV) nonsteroidal anti-inflammatory drugs (NSAIDS). She has had excellent urine output today. More than 4 liters of urine without diuretics. Her electrolytes are acceptable and I also note that her serum albumin is slowly improving. She will need repeat urine testing as an outpatient to monitor for resolution of her proteinuria. She is not suitable for any nonsteroidal anti-inflammatory drugs (NSAIDS) at present. 2. Hemolysis, elevated liver enzymes and low platelet count (HELLP) syndrome and hypertension. Her liver function tests (LFTs) are improving. AST down to 60 and her platelet count is coming up to 188 today. Blood pressures remain suboptimally controlled and gynecology has increased labetalol to 400 mg by mouth twice a day and I am starting her on Procardia XL 30 mg by mouth daily with holding parameters. We will hold off on further loop diuretic today given her urine output of already more than 4 liters. 3. Hypermagnesemia. Magnesium level is improved and we will expect further improvement as her renal function recovers.
--- NOTE | 2019-03-25 07:42 | NUR ---
POD#7 - No overnight issues S: Doing well. Has moderate pain control. Denies headache or abd pain. Vision in left eye has significantly improved. O: vs: vs, AF Gen: well appearing abd: soft, appropriately tender, FF@ U-3 incision: ecchymosis long incision. C/D/I well approximated ext: neg calf tenderness neuro: grossly intact Labs: pending A/P: POD # 7 s/p emergent c/s for placenta abruptions / DIC -stable. Cont postop care -severe preeclampsia / HEELP - improving. Continue with labetalol titration - Rental detachment - f/u at discharge with retina specialist Latisha Vinson MD
[2019-03-25 07:49] LABS: MAGNESIUM LEVEL 1.9 MG/DL (1.8-2.4)
[2019-03-25] MEDS: PRENATAL VITAMINS CHEWABLE TABLET PO SCH (08:52)
[2019-03-25] MEDS: LABETALOL 200 MG TAB PO SCH ×2 (08:53→21:06)
[2019-03-25] MEDS: DOCUSATE SODIUM 100 MG CAP PO SCH ×2 (08:53→20:59)
[2019-03-25] MEDS: NIFEdipine 30 MG XL TAB PO SCH (08:54)
[2019-03-25] MEDS: FERROUS GLUCONATE 324 MG TAB PO SCH (08:54)
[2019-03-25] MEDS: CALCIUM/VITAMIN D 500 MG TAB PO SCH ×2 (08:54→20:59)
[2019-03-25] MEDS: MIRALAX *UNIT DOSE* 17GM PACKET PO SCH (08:57)
[2019-03-25] MEDS: PERCOCET 5MG/325MG TAB PO PRN ×2 (09:48→22:19)
[2019-03-25 10:10] LABS: HEMATOCRIT 25.3 % (36.0-47.0); HEMOGLOBIN 8.2 g/dl (12.0-15.5); MEAN CORPUSCULAR HEMOGLOBIN 28.9 pg (27.0-33.0); MEAN CORPUSCULAR HGB CONC 32.4 g/dl (32.0-36.5); MEAN CORPUSCULAR VOLUME 89.1 fl (80.0-96.0); PLATELET COUNT, AUTOMATED 205 10^3/uL (150-450); RED BLOOD COUNT 2.84 10^6/uL (4.00-5.40); WHITE BLOOD COUNT 9.9 10^3/uL (4.0-10.0)
[2019-03-25 10:47] LABS: CALCIUM LEVEL 8.8 MG/DL (8.5-10.1); GLOMERULAR FILTRATION RATE 33.5 (>60); POTASSIUM SERUM 4.2 MEQ/L (3.5-5.1)
[2019-03-26 02:00] VITALS: BP 150/82
[2019-03-26 06:00] VITALS: BP 125/84
--- NOTE | 2019-03-26 08:36 | IPN ---
DATE OF SERVICE: :03/25/2019 SUBJECTIVE: Daniella is seen, examined this morning at the bedside. She complains of black dots in her vision (floaters). Blood pressure was uncontrolled yesterday evening and she was started on nifedipine by myself. Readings this morning are improved. She continues to with diuresis well without use of diuretics and labs show improvement in renal function and platelets she reports improvement in edema. She is anxious in regards to her discharge plans which I would advise her to discuss with her primary team. Temperature 98.2, pulse 93, respiratory rate 18, blood pressure 148/83. Intake yesterday was not 2700 urine output yesterday was 4650, net negative 1950, weight in the bed scale today is 69.9 which is decreased from prior. General: The patient is seen sitting upright in bed awake, alert, oriented times three in no apparent distress. Extraocular muscles are intact. Sclerae are anicteric. Tongue is moist. Neck is supple. No jugular venous distension. Cardiac defer this to regular rate and rhythm. There is noticeable improvement in her lower extremity edema and now mostly prominent in the feet at about 1+. Respiratory: Shows a clear to auscultation bilaterally. No crackle or rales. Abdomen is soft. The suprapubic surgical site has some local ecchymosis. The extremities show no clubbing or cyanosis. Skin: Shows no rashes and there is normal temperature and turgor. Neurologic: There are no focal deficits although I did not examine her eyes. LABORATORY DATA: Sodium 142, potassium 4.2, BUN 30, creatinine 2.0, magnesium 1.9, platelet 205, hemoglobin 8.2. INPATIENT MEDICATIONS: Reviewed by myself primary team adjusted her pain medications. Her remainder medications are unchanged from prior. PROBLEMS: 1. Nonoliguric acute kidney injury. Her renal function continues to improve her creatinine is down to 2.0. Her edema is improving. She is auto diuresing without the use of diuretics. Urine output has been greater than 4 liters. Electrolytes are acceptable. Her serum albumin has been uptrending. She should have a repeat urine analysis as an outpatient to monitor for resolution of proteinuria and I have also advised to her that she should not take NSAIDs as an outpatient given the recent severe acute kidney injury and ongoing recovery of renal function which is not yet returned to baseline. 2. Hypertension. Peripartum, likely related to HELLP syndrome / preeclampsia. I added Procardia XL with generous holding parameters at a low dose of 30 mg once daily. She also continues on labetalol, would like to keep her systolic around 120's to 140's. She would need to monitor her blood pressure as an outpatient as her blood pressures should normalize and improve in the coming weeks to 3 months. 3. Hypermagnesemia it has resolved.
[2019-03-26] MEDS: MIRALAX *UNIT DOSE* 17GM PACKET PO SCH (09:00)
[2019-03-26 09:14] LABS: DRVV SCREEN 44.8 SEC
[2019-03-26 09:15] LABS: PTT LUPUS TYPE ANTICOAG SCREEN 1.1 (0-1.2)
[2019-03-26] MEDS: DOCUSATE SODIUM 100 MG CAP PO SCH ×2 (09:30→21:22)
[2019-03-26] MEDS: FERROUS GLUCONATE 324 MG TAB PO SCH (09:31)
[2019-03-26] MEDS: LABETALOL 200 MG TAB PO SCH ×2 (09:32→21:23)
[2019-03-26] MEDS: CALCIUM/VITAMIN D 500 MG TAB PO SCH ×2 (09:32→21:22)
[2019-03-26] MEDS: PRENATAL VITAMINS CHEWABLE TABLET PO SCH (09:32)
[2019-03-26] MEDS: NIFEdipine 30 MG XL TAB PO SCH (09:33)
[2019-03-26 10:15] VITALS: BP 167/84
[2019-03-26 10:51] LABS: BASO # 0.1 10^3/uL (0.0-0.2); BASO % 0.4 % (0.0-1.0); EOS # 0.5 10^3/uL (0.0-0.50); EOS % 3.6 % (0.0-3.0); HEMATOCRIT 26.2 % (36.0-47.0); HEMOGLOBIN 8.5 g/dl (12.0-15.5); LYMPH # 2.4 10^3/uL (1.5-6.5); LYMPH % 19.3 % (24.0-44.0); MEAN CORPUSCULAR HEMOGLOBIN 29.1 pg (27.0-33.0); MEAN CORPUSCULAR HGB CONC 32.4 g/dl (32.0-36.5); MEAN CORPUSCULAR VOLUME 89.7 fl (80.0-96.0); MONO # 0.7 10^3/uL (0.0-0.8); MONO % 5.5 % (0.0-5.0); NEUTROPHILS # 8.7 10^3/uL (1.8-7.7); NEUTROPHILS % 69.2 % (36.0-66.0); PLATELET COUNT, AUTOMATED 261 10^3/uL (150-450); RED BLOOD COUNT 2.92 10^6/uL (4.00-5.40); WHITE BLOOD COUNT 12.5 10^3/uL (4.0-10.0)
[2019-03-26 11:33] LABS: ALBUMIN 2.3 GM/DL (3.2-5.2); BILIRUBIN,TOTAL 0.4 MG/DL (0.2-1.0); CALCIUM LEVEL 8.4 MG/DL (8.5-10.1); CREATININE FOR GFR 1.64 MG/DL (0.55-1.30); GLOMERULAR FILTRATION RATE 42.1 (>60); POTASSIUM SERUM 4.3 MEQ/L (3.5-5.1); TOTAL PROTEIN 5.2 GM/DL (6.4-8.2)
[2019-03-26 14:00] VITALS: BP 136/81
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
[2019-03-26] MEDS: ACETAMINOPHEN 500 MG TAB PO PRN (17:19)
[2019-03-26 18:00] VITALS: BP 150/93
[2019-03-26 21:23] VITALS: BP 150/98
[2019-03-27 06:00] VITALS: BP 159/85
--- NOTE | 2019-03-27 06:23 | IPN ---
DATE OF SERVICE: 03/26/2019 SUBJECTIVE: Daniella is seen, examined this morning at the bedside. She complains of ongoing floaters in her vision, which she feels are worse when her blood pressure is high. She continues on combination labetalol and Procardia. Laboratory studies show steady improvement in platelet count and likewise, improvement in renal function and serum albumin. The patient has had excellent urine output without ongoing need for diuretics and her edema is almost resolved. Vital signs: Temperature 98.3, pulse 90, respiratory rate 18, blood pressure 150/93. Intake yesterday was 1530. Urine output yesterday was 3900. Weight in the bed scale today is not recorded. General: The patient is seen sitting upright in bed awake, alert, oriented times three, comfortable, in no acute distress. Extraocular muscles are intact. Sclerae are anicteric. Tongue is moist. Neck is supple. Jugular veins are not distended. Cardiac: S1, S2, regular rate and rhythm. Lungs are clear to auscultation bilaterally. No crackle, rale, or rhonchus. Abdomen is soft and nontender. The surgical site is not examined. The extremities show significant improvement in her pitting edema, which is now almost resolved. Peripheral pulses are palpable. Skin: Normal temperature and turgor. LABS: Sodium 142, potassium 4.3, BUN 27, creatinine 1.6. Serum albumin 2.3. Platelet count 261. INPATIENT MEDICATIONS: Reviewed by myself and pain medications were adjusted by the primary team. Remainder of pills are unchanged from prior. PROBLEMS: 1. Nonoliguric acute kidney injury. It was in the setting of preeclampsia/hemolysis, elevated liver enzymes, low platelet count (HELLP). Her renal function continues to improve. Creatinine is down to 1.6. Edema is steadily improving. Serum albumin is increasing and she is making satisfactory urine without the use of diuretics. She will need a repeat urinalysis as an outpatient to monitor for resolution of proteinuria and she should stay off of nonsteroidal anti-inflammatory drugs (NSAIDs) for the time being given her recent severe acute kidney injury and ongoing recovery of renal function which has not yet recovered to baseline. 2. Hypertension/preeclampsia. Continue with Procardia XL and twice daily labetalol. She will need to monitor her blood pressures as an outpatient in order to titrate her medications given that the blood pressure should improve in the coming weeks to months. DISPOSITION: Renal function is improving. Serum albumin is uptrending. Proteinuria is likely to improve as well. The patient should followup with nephrology as an outpatient. At present, nephrology is signing off the case. Please reconsult as needed.
[2019-03-27 07:35] LABS: BASO # 0.1 10^3/uL (0.0-0.2); BASO % 0.4 % (0.0-1.0); EOS # 0.5 10^3/uL (0.0-0.50); HEMATOCRIT 28.6 % (36.0-47.0); LYMPH # 2.8 10^3/uL (1.5-6.5); LYMPH % 22.2 % (24.0-44.0); MEAN CORPUSCULAR HEMOGLOBIN 27.9 pg (27.0-33.0); MEAN CORPUSCULAR HGB CONC 31.5 g/dl (32.0-36.5); MEAN CORPUSCULAR VOLUME 88.5 fl (80.0-96.0); MONO # 0.8 10^3/uL (0.0-0.8); MONO % 6.7 % (0.0-5.0); NEUTROPHILS # 8.1 10^3/uL (1.8-7.7); NEUTROPHILS % 64.2 % (36.0-66.0); PLATELET COUNT, AUTOMATED 354 10^3/uL (150-450); RED BLOOD COUNT 3.23 10^6/uL (4.00-5.40); WHITE BLOOD COUNT 12.6 10^3/uL (4.0-10.0)
[2019-03-27 08:00] LABS: ALBUMIN 2.7 GM/DL (3.2-5.2); BILIRUBIN,TOTAL 0.3 MG/DL (0.2-1.0); CALCIUM LEVEL 9.2 MG/DL (8.5-10.1); CREATININE FOR GFR 1.61 MG/DL (0.55-1.30); POTASSIUM SERUM 4.7 MEQ/L (3.5-5.1); TOTAL PROTEIN 6.3 GM/DL (6.4-8.2)
[2019-03-27] MEDS: MIRALAX *UNIT DOSE* 17GM PACKET PO SCH (09:00)
[2019-03-27 09:19] VITALS: BP 146/84
[2019-03-27] MEDS: LABETALOL 200 MG TAB PO SCH (09:24)
[2019-03-27] MEDS: PRENATAL VITAMINS CHEWABLE TABLET PO SCH (09:24)
[2019-03-27] MEDS: DOCUSATE SODIUM 100 MG CAP PO SCH (09:24)
[2019-03-27] MEDS: CALCIUM/VITAMIN D 500 MG TAB PO SCH (09:24)
[2019-03-27] MEDS: FERROUS GLUCONATE 324 MG TAB PO SCH (09:24)
[2019-03-27 09:25] VITALS: BP 146/84
[2019-03-27] MEDS: NIFEdipine 30 MG XL TAB PO SCH (09:25)
[2019-03-27] MEDS: ACETAMINOPHEN 500 MG TAB PO PRN (09:28)
[2019-03-27] MEDS ORDERED: ACET-683 PO (10:01)
[2019-03-27] MEDS ORDERED: LABE20TAB PO (10:01)
[2019-03-27] MEDS ORDERED: FERR32TA PO (10:01)
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
[2019-03-28 08:06] LABS: ANCA-ATYPICAL <1:20 titer (Neg:<1:20); ANTI DS-DNA AB <1:10 titer (.); ANTINUCLEAR ANTIBODIES DIRECT Negative (Negative); CYTOPLASMIC NEUTROP AB ANCA-C <1:20 titer (Neg:<1:20); PERINUCLEAR AB ANCA-P <1:20 titer (Neg:<1:20)
== END 2019-03-27 12:20 | disposition home or self-care (01) | DRG 540 ==
LOC: M LDO 05:52 → M LDI 06:01 → M OBS 10:00
PROVIDERS: ADMIT Advanced Practice Midwife; ATTEND Advanced Practice Midwife
PROC: 30233N1 Transfusion of Nonautologous Red Blood Cells into Peripheral Vein, Percutaneous Approach (ICD-10-PCS; 2019-03-19)
PROC: 10D00Z1 Extraction of Products of Conception, Low, Open Approach (ICD-10-PCS; principal; 2019-03-19 07:43)
DX: O45.023 Premature separation of placenta with disseminated intravascular coagulation, third trimester (principal); N17.9 Acute kidney failure, unspecified; E83.42 Hypomagnesemia; D62 Acute posthemorrhagic anemia; E83.51 Hypocalcemia; O76 Abnormality in fetal heart rate and rhythm complicating labor and delivery; Z3A.36 36 weeks gestation of pregnancy; O14.24 HELLP syndrome, complicating childbirth; Z37.0 Single live birth; H33.21 Serous retinal detachment, right eye; O26.893 Other specified pregnancy related conditions, third trimester; B00.9 Herpesviral infection, unspecified; O98.52 Other viral diseases complicating childbirth; Z91.040 Latex allergy status; Z88.8 Allergy status to other drugs, medicaments and biological substances; Z91.018 Allergy to other foods; O99.02 Anemia complicating childbirth; O99.284 Endocrine, nutritional and metabolic diseases complicating childbirth; O99.89 Other specified diseases and conditions complicating pregnancy, childbirth and the puerperium; E87.6 Hypokalemia

== ENCOUNTER 2019-04-01 18:08 | Emergency (ER) | payer OTHER ==
[~2019-04-01] VITALS: Ht 154.9 cm; Wt 56.8 kg
[~2019-04-01 18:08] MED LIST changes: +ACET-683 PO; +FERR32TA PO; +LABE20TAB PO; +VALT1TAB PO
--- NOTE | 2019-04-01 19:34 | REP ---
Clinical: Acute chest pain . Comparison: 03/20/2019 . Technique: PA and lateral. Findings: The mediastinum and cardiac silhouette are normal. The lung juárez are clear and without acute consolidation, effusion, or pneumothorax. The skeletal structures are intact and normal. Impression: 1. No acute cardiopulmonary process. Electronically Signed by Hosea Woody MD 04/01/2019 07:25 P
[2019-04-01 19:36] LABS: BASO # 0.1 10^3/uL (0.0-0.2); BASO % 0.9 % (0.0-1.0); EOS # 0.3 10^3/uL (0.0-0.50); EOS % 2.8 % (0.0-3.0); HEMATOCRIT 31.1 % (36.0-47.0); LYMPH # 3.5 10^3/uL (1.5-6.5); LYMPH % 30.1 % (24.0-44.0); MEAN CORPUSCULAR HEMOGLOBIN 28.9 pg (27.0-33.0); MEAN CORPUSCULAR HGB CONC 32.2 g/dl (32.0-36.5); MEAN CORPUSCULAR VOLUME 89.9 fl (80.0-96.0); MONO # 0.7 10^3/uL (0.0-0.8); MONO % 5.8 % (0.0-5.0); NEUTROPHILS # 6.9 10^3/uL (1.8-7.7); NEUTROPHILS % 59.3 % (36.0-66.0); PLATELET COUNT, AUTOMATED 485 10^3/uL (150-450); RED BLOOD COUNT 3.46 10^6/uL (4.00-5.40); WHITE BLOOD COUNT 11.6 10^3/uL (4.0-10.0)
[2019-04-01 20:03] LABS: ALBUMIN 3.7 GM/DL (3.2-5.2); ALT/SGPT 20 U/L (12-78); BILIRUBIN,DIRECT 0.1 MG/DL (0.0-0.2); BILIRUBIN,TOTAL 0.5 MG/DL (0.2-1.0); BLOOD UREA NITROGEN 17 MG/DL (7-18); CALCIUM LEVEL 9.1 MG/DL (8.5-10.1); CARBON DIOXIDE LEVEL 24 MEQ/L (21-32); CHLORIDE LEVEL 110 MEQ/L (98-107); CREATININE FOR GFR 1.07 MG/DL (0.55-1.30); GLOMERULAR FILTRATION RATE > 60.0 (>60); GLUCOSE, FASTING 84 MG/DL (70-100); POTASSIUM SERUM 3.9 MEQ/L (3.5-5.1); SODIUM LEVEL 142 MEQ/L (136-145); TOTAL PROTEIN 7.7 GM/DL (6.4-8.2)
[2019-04-01] MEDS ORDERED: ISOVUE-370 76% 100ML VIAL (Q9967) As Ordered ONE (20:48)
[2019-04-01 21:48] LABS: C REACTIVE PROTEIN QUANTITATIV 0.46 MG/DL (0.00-0.30)
--- NOTE | 2019-04-01 22:18 | ECGEPIP ---
[facility] - ED Test Date: 2019-04-01 Pat Name: SOURAV VEGA Department: Room: - Gender: Female Manager Delivery: ISA : 1995 Requested By: SHAKEEL Ledbetter Order Number: [id number] Reading MD: Karl Simental Measurements Intervals [place] Rate: 66 P: 45 DC: 144 QRS: 15 QRSD: 86 T: 72 QT: 462 QTc: 485 Interpretive Statements SINUS RHYTHM WITH SINUS ARRHYTHMIA INCOMPLETE RIGHT BUNDLE BRANCH BLOCK MINIMAL VOLTAGE CRITERIA FOR LVH, CONSIDER NORMAL VARIANT NONSPECIFIC ST & T-WAVE ABNORMALITY PROLONGED QT INTERVAL NO PRIORS FOR COMPARISON Electronically Signed on 04-01-2019 22:18:15 EDT by Karl Simental
[2019-04-01 22:52] LABS: APPEARANCE, URINE CLEAR (CLEAR); BACTERIA, URINE AUTO NEGATIVE (NEGATIVE); BILIRUBIN, URINE AUTO NEGATIVE (NEGATIVE); BLOOD, URINE BLOOD 3+ (NEGATIVE); COLOR, URINE YELLOW (YELLOW); GLUCOSE, URINE (UA) AUTO NEGATIVE (NEGATIVE); KETONE, URINE AUTO TRACE mg/dL (NEGATIVE); LEUKOCYTE ESTERASE, URINE AUTO TRACE (NEGATIVE); MUCUS, URINE MODERATE (NEGATIVE); NITRITE, URINE AUTO NEGATIVE (NEGATIVE); PROTEIN, URINE AUTO 2+ mg/dL (NEGATIVE); RBC, URINE AUTO 49 /HPF (0-3); SPECIFIC GRAVITY URINE AUTO 1.025 (1.002-1.035); SQUAMOUS EPITHELIAL CELL UR AU 1 /HPF (0-6); UROBILINOGEN, URINE AUTO 0.2 mg/dL (0.0-2.0); WBC, URINE AUTO 16 /HPF (0-3)
--- NOTE | 2019-04-01 23:13 | REPVR ---
EXAM: CT Head Without Contrast EXAM DATE/TIME: 04/01/2019 10:23 PM CLINICAL HISTORY: 23 years old, female; Visual disturbance; Additional info: Blurry vision, preeclampsia TECHNIQUE: Imaging protocol: Axial computed tomography images of the head without contrast. Radiation optimization: All CT scans at this facility use at least one of these dose optimization techniques: automated exposure control; mA and/or kV adjustment per patient size (includes targeted exams where dose is matched to clinical indication); or iterative reconstruction. COMPARISON: CT Head without contrast 03/20/2019 10:11 AM FINDINGS: Brain: Normal. No hemorrhage. Unremarkable white matter. No mass effect. Ventricles: Normal. No ventriculomegaly. Bones/joints: Unremarkable. No acute fracture. Sinuses: Visualized sinuses are unremarkable. No fluid levels. Mastoid air cells: Visualized mastoid air cells are well aerated. No mastoid effusion. Soft tissues: Unremarkable. IMPRESSION: Negative noncontrast head CT without change from 03/20/2019. Electronically signed by: Yasmani Pete On 04/01/2019 23:12:57 PM
--- NOTE | 2019-04-01 23:15 | REPVR ---
EXAM: CT Angiography Chest With Contrast EXAM DATE/TIME: 04/01/2019 10:23 PM CLINICAL HISTORY: 23 years old, female; Chest pain; Additional info: Blurry vision, preeclampsia, chest pain, recent surgery TECHNIQUE: Imaging protocol: Axial computed tomographic angiography images of the chest with intravenous contrast using CT angiography protocol. Coronal and sagittal reformatted images were created and reviewed. 3D rendering: MIP reconstructed images were created and reviewed. Radiation optimization: All CT scans at this facility use at least one of these dose optimization techniques: automated exposure control; mA and/or kV adjustment per patient size (includes targeted exams where dose is matched to clinical indication); or iterative reconstruction. Contrast material: ISOVUE 370; Contrast volume: 75 ml; Contrast route: IV; COMPARISON: CR Chest, 2 view PA, Lat 04/01/2019 7:07 PM FINDINGS: Pulmonary arteries: The main pulmonary artery measures 20 mm. No pulmonary embolism is identified. Aorta: The ascending thoracic aorta measures 27 mm. Lungs: Unremarkable. No consolidation. No masses. Pleural space: Unremarkable. No pneumothorax. No pleural effusion. Heart: Unremarkable. No cardiomegaly. No pericardial effusion. Lymph nodes: Unremarkable. No enlarged lymph nodes. Bones/joints: Unremarkable. No acute fracture. Soft tissues: Unremarkable. IMPRESSION: Negative CTA chest. No pulmonary embolism is identified. Electronically signed by: Yasmani Pete On 04/01/2019 23:15:39 PM
[2019-04-01 23:51] VITALS: BP 155/110
== END 2019-04-02 00:05 | disposition home or self-care (01) ==
LOC: M ED 18:08
DX: O16.5 Unspecified maternal hypertension, complicating the puerperium (principal); I45.19 Other right bundle-branch block; Z91.011 Allergy to milk products; Z91.018 Allergy to other foods; Z91.040 Latex allergy status
CPT/HCPCS: 36415; 70450; 71046; 71275; 80048; 80076; 81001; 85025; 86140; 93005; 93041; 94760; 99285; Q9967

== ENCOUNTER → 2019-05-08 | Outpatient (REF) | payer OTHER ==
[2019-05-08 17:08] LABS: CHLAMYDIA DNA AMPLIFICATION POSITIVE (NEGATIVE); GC DNA AMPLIFICATION POSITIVE (NEGATIVE)
== END ==
LOC: M LAB REF 13:19
PROVIDERS: ATTEND Obstetrics & Gynecology
DX: Z11.3 Encounter for screening for infections with a predominantly sexual mode of transmission (principal)

== ENCOUNTER → 2019-07-29 | Outpatient (REF) | payer OTHER ==
[2019-07-30 15:44] LABS: CHLAMYDIA DNA AMPLIFICATION POSITIVE (NEGATIVE); GC DNA AMPLIFICATION NEGATIVE (NEGATIVE)
== END ==
LOC: M LAB REF 13:04
PROVIDERS: ATTEND Obstetrics & Gynecology
DX: Z12.4 Encounter for screening for malignant neoplasm of cervix (principal); N77.1 Vaginitis, vulvitis and vulvovaginitis in diseases classified elsewhere; Z11.3 Encounter for screening for infections with a predominantly sexual mode of transmission

== ENCOUNTER → 2020-05-29 | Outpatient (CLI) | payer OTHER ==
[~2020-05-29] MED LIST changes: +NITR100C2 PO; +PREN29TA4 PO
--- NOTE | 2020-06-30 11:27 | REP ---
FIRST TIMESTER OBSTETRIC ULTRASOUND CLINICAL: Dating and viability. TECHNIQUE: Transabdominal first trimester obstetric ultrasound with color Doppler evaluation. FINDINGS: pole measuring 50 mm corresponds to 11 weeks 5 days gestational age. heart rate equals 180 beats per minute. No gross abnormalities are identified. IMPRESSION: Single live intrauterine at 11 weeks 5 days gestational age. Complete anatomical assessment should be performed at 19-20 weeks. MTDD
== END ==
LOC: M RAD 15:39
PROVIDERS: ATTEND Obstetrics & Gynecology
DX: O36.80X0 Pregnancy with inconclusive fetal viability, not applicable or unspecified (principal); Z3A.11 11 weeks gestation of pregnancy

== ENCOUNTER 2020-06-10 15:34 | Emergency (ER) | payer OTHER ==
[~2020-06-10] VITALS: Ht 154.9 cm; Wt 55.8 kg
[~2020-06-10 15:34] MED LIST changes: -NITR100C2 PO; -PREN29TA4 PO
[2020-06-10] MEDS ORDERED: PREN29TA4 PO (15:39)
[2020-06-10] MEDS ORDERED: NITR100C2 PO (15:39)
[2020-06-10 17:24] LABS: BASO % 0.3 % (0.0-1.0); EOS # 0.2 10^3/uL (0.0-0.5); EOS % 1.4 % (0.0-3.0); HEMATOCRIT 35.2 % (36.0-47.0); HEMOGLOBIN 11.7 g/dl (12.0-15.5); LYMPH # 3.3 10^3/uL (1.5-5.0); LYMPH % 26.2 % (24.0-44.0); MEAN CORPUSCULAR HEMOGLOBIN 28.7 pg (27.0-33.0); MEAN CORPUSCULAR HGB CONC 33.2 g/dl (32.0-36.5); MEAN CORPUSCULAR VOLUME 86.5 fl (80.0-96.0); MONO # 0.5 10^3/uL (0.0-0.8); MONO % 4.2 % (0.0-5.0); NEUTROPHILS # 8.6 10^3/uL (1.5-8.5); NEUTROPHILS % 67.4 % (36.0-66.0); PLATELET COUNT, AUTOMATED 365 10^3/uL (150-450); RED BLOOD COUNT 4.07 10^6/uL (4.00-5.40); WHITE BLOOD COUNT 12.7 10^3/uL (4.0-10.0)
--- NOTE | 2020-06-10 17:39 | REPVR ---
PROCEDURE INFORMATION: Exam: US Retroperitoneal Limited, Kidneys Exam date and time: 06/10/2020 5:21 PM Age: 25 years old Clinical indication: Abdominal pain; Flank; Right; ; Additional info: Right flank pain/dysuria/ TECHNIQUE: Imaging protocol: Real-time ultrasound of the retroperitoneum with image documentation. Examination was focused on the kidneys. COMPARISON: No relevant prior studies available. FINDINGS: Right kidney: Right mid renal 4.1 mm calyceal calculus. The right kidney measures 11.8 x 4.7 x 5.2 cm. No hydronephrosis. A brief color Doppler examination of the right kidney was performed showing normal color shifts. Left kidney: Left mid-upper renal 3.2 mm calyceal calculus. The left kidney measures 11.3 x 5.2 x 4.9 cm. No hydronephrosis. A brief color Doppler examination of the left kidney was performed showing normal color shifts. Bladder: The urinary bladder is imaged in the sagittal and transverse planes, and is partially decompressed but otherwise unremarkable. The wall thickness appears unremarkable. Bilateral ureteral jets are not observed by color Doppler. Uterus: Gravid uterus, single intrauterine , 153 bpm. IMPRESSION: Bilateral renal calyceal lithiasis. Electronically signed by: Thomas Gray On 06/10/2020 17:38:55 PM
[2020-06-10 19:25] VITALS: BP 114/56
== END 2020-06-10 19:27 | disposition home or self-care (01) ==
LOC: M ED 15:34
DX: O99.89 Other specified diseases and conditions complicating pregnancy, childbirth and the puerperium (principal); R30.0 Dysuria; R10.9 Unspecified abdominal pain; Z3A.14 14 weeks gestation of pregnancy; O99.512 Diseases of the respiratory system complicating pregnancy, second trimester; J45.909 Unspecified asthma, uncomplicated; O99.342 Other mental disorders complicating pregnancy, second trimester; F33.9 Major depressive disorder, recurrent, unspecified; F41.9 Anxiety disorder, unspecified; F43.10 Post-traumatic stress disorder, unspecified; O99.282 Endocrine, nutritional and metabolic diseases complicating pregnancy, second trimester; Z87.442 Personal history of urinary calculi; E73.9 Lactose intolerance, unspecified; Z91.018 Allergy to other foods; Z91.040 Latex allergy status

== ENCOUNTER → 2020-07-17 | Outpatient (CLI) | payer OTHER ==
[~2020-07-17] MED LIST changes: +NITR100C2 PO; +PREN29TA4 PO
--- NOTE | 2020-07-17 13:35 | REP ---
INDICATION: ENCOUNTER FOR SUPRVSN OF NORMAL COMPARISON: None. TECHNIQUE: Transabdominal obstetrical ultrasound with color Doppler evaluation. FINDINGS: Examination demonstrates a single live intrauterine in cephalic presentation. motion is identified by technologist. Placenta is noted posterior and grade 0 without evidence for placenta previa or abruption. Amniotic fluid volume is normal. Cervix measures 4.0 cm in length and appears closed. Eighteen weeks 6 days. Gestational age by LMP 18 weeks 6 days with RAMIRO 12/12/2020. Gestational age by current measurements 18 weeks 1 day with RAMIRO 12/17/2020. FHR equals 147 beats per minute. HC * [3.9 cm]: 15.0 cm * [17 weeks 5 days]: 18 weeks 1 day AC * [3.9 cm]: 12.1 cm * [17 weeks 5 days]: 17 weeks 5 days FL * [3.9 cm]: 2.8 cm * [17 weeks 5 days]: 18 weeks 5 days HL * [3.9 cm]: 2.7 cm * [17 weeks 5 days]: 18 weeks 6 days HC/AC ratio: 1.25 Estimated weight 221 grams (less than 3rdpercentile). Anatomical assessment demonstrates normal structures including cranium, choroid plexus, cavum, cerebellum/posterior fossa, facial features, lungs, diaphragm, stomach, cord insertion/three-vessel cord, kidneys/bladder, spine, and extremities. Limited evaluation of the heart and ventricular outflow tracts noted. IMPRESSION: Single live intrauterine in cephalic presentation. Less than expected interval growth noted (3rd percentile) Limited evaluation of the heart and ventricular outflow tract. <Electronically signed by Hosea Woody > 07/17/20 [id number]
== END ==
LOC: M RAD 12:02
PROVIDERS: ATTEND Obstetrics & Gynecology
DX: O36.5930 Maternal care for other known or suspected poor fetal growth, third trimester, not applicable or unspecified (principal); Z36.89 Encounter for other specified antenatal screening; Z3A.18 18 weeks gestation of pregnancy

== ENCOUNTER → 2020-07-17 | Outpatient (CLI) | payer OTHER ==
[2020-07-17 12:48] LABS: HEMATOCRIT 33.9 % (36.0-47.0); HEMOGLOBIN 11.2 g/dl (12.0-15.5); MEAN CORPUSCULAR HEMOGLOBIN 29.5 pg (27.0-33.0); MEAN CORPUSCULAR VOLUME 89.2 fl (80.0-96.0); PLATELET COUNT, AUTOMATED 321 10^3/uL (150-450); WHITE BLOOD COUNT 9.7 10^3/uL (4.0-10.0)
[2020-07-17 13:05] LABS: ALT/SGPT 10 U/L (12-78); BILIRUBIN,TOTAL 0.2 MG/DL (0.2-1.0); CREATININE FOR GFR 0.57 MG/DL (0.55-1.30); GLOMERULAR FILTRATION RATE > 60.0 (>60); LDH LACTATE DEHYDROGENASE 113 U/L (84-246); URIC ACID 4.3 MG/DL (2.6-6.0)
[2020-07-17 19:24] LABS: CREATININE 24 HOUR, URINE 622.5 MG/24HR (600-1800); TOTAL PROTEIN 24 HOUR URINE 78.2 MG/24HR (50-150); URINE TOTAL PROTEIN 31.3 MG/DL (0-12)
== END ==
LOC: M LAB 12:05
PROVIDERS: ATTEND Advanced Practice Midwife
DX: Z34.82 Encounter for supervision of other normal pregnancy, second trimester (principal); Z36.89 Encounter for other specified antenatal screening

== ENCOUNTER → 2020-09-08 | Outpatient (CLI) | payer OTHER ==
[2020-09-08 16:45] LABS: HEMATOCRIT 35.2 % (36.0-47.0); HEMOGLOBIN 11.3 g/dl (12.0-15.5); MEAN CORPUSCULAR HEMOGLOBIN 29.5 pg (27.0-33.0); MEAN CORPUSCULAR HGB CONC 32.1 g/dl (32.0-36.5); MEAN CORPUSCULAR VOLUME 91.9 fl (80.0-96.0); PLATELET COUNT, AUTOMATED 293 10^3/uL (150-450); RED BLOOD COUNT 3.83 10^6/uL (4.00-5.40); WHITE BLOOD COUNT 14.3 10^3/uL (4.0-10.0)
== END ==
LOC: M LAB 14:52
PROVIDERS: ATTEND Obstetrics & Gynecology
DX: Z34.82 Encounter for supervision of other normal pregnancy, second trimester (principal)

== ENCOUNTER 2020-10-10 11:01 | Outpatient (CLI) | payer OTHER ==
[~2020-10-10] VITALS: Ht 154.9 cm; Wt 61.4 kg
[2020-10-10 11:10] VITALS: BP 128/69
[2020-10-10] MEDS ORDERED: VALT500T PO (11:20)
[2020-10-10] MEDS ORDERED: BUTORPHANOL 2 MG/ML INJ (J0595) IV PRN (11:45)
[2020-10-10] MEDS ORDERED: ONDANSETRON 4MG/2ML VIAL IV PRN (11:45)
[2020-10-10] MEDS ORDERED: LR 1,000 ML IV SCH (11:45)
[2020-10-10 12:06] LABS: HEMATOCRIT 31.1 % (36.0-47.0); MEAN CORPUSCULAR HEMOGLOBIN 29.5 pg (27.0-33.0); MEAN CORPUSCULAR HGB CONC 32.2 g/dl (32.0-36.5); MEAN CORPUSCULAR VOLUME 91.7 fl (80.0-96.0); PLATELET COUNT, AUTOMATED 229 10^3/uL (150-450); RED BLOOD COUNT 3.39 10^6/uL (4.00-5.40)
[2020-10-10 12:12] LABS: APPEARANCE, URINE CLOUDY (CLEAR); BACTERIA, URINE AUTO 1+ (NEGATIVE); BILIRUBIN, URINE AUTO NEGATIVE (NEGATIVE); BLOOD, URINE BLOOD 1+ (NEGATIVE); COLOR, URINE YELLOW (YELLOW); GLUCOSE, URINE (UA) AUTO NEGATIVE (NEGATIVE); KETONE, URINE AUTO NEGATIVE (NEGATIVE); LEUKOCYTE ESTERASE, URINE AUTO 3+ (NEGATIVE); MUCUS, URINE SMALL (NEGATIVE); NITRITE, URINE AUTO POSITIVE (NEGATIVE); PROTEIN, URINE AUTO NEGATIVE (NEGATIVE); RBC, URINE AUTO 14 /HPF (0-3); SPECIFIC GRAVITY URINE AUTO 1.016 (1.002-1.035); SQUAMOUS EPITHELIAL CELL UR AU 20 /HPF (0-6); UROBILINOGEN, URINE AUTO 0.2 mg/dL (0.0-2.0); WBC, URINE AUTO TNTC /HPF (0-3)
[2020-10-10 12:46] LABS: ALBUMIN 2.3 GM/DL (3.2-5.2); ALT/SGPT 12 U/L (12-78); BILIRUBIN,TOTAL 0.3 MG/DL (0.2-1.0); BLOOD UREA NITROGEN 8 MG/DL (7-18); CALCIUM LEVEL 7.8 MG/DL (8.5-10.1); CARBON DIOXIDE LEVEL 22 MEQ/L (21-32); CHLORIDE LEVEL 109 MEQ/L (98-107); CREATININE FOR GFR 0.53 MG/DL (0.55-1.30); GLOMERULAR FILTRATION RATE > 60.0 (>60); GLUCOSE, FASTING 76 MG/DL (70-100); POTASSIUM SERUM 3.7 MEQ/L (3.5-5.1); SODIUM LEVEL 139 MEQ/L (136-145); TOTAL PROTEIN 5.6 GM/DL (6.4-8.2)
[2020-10-10 13:20] VITALS: BP 136/75
[2020-10-10 13:27] LABS: APPEARANCE, URINE HAZY (CLEAR); BACTERIA, URINE AUTO 1+ (NEGATIVE); BILIRUBIN, URINE AUTO NEGATIVE (NEGATIVE); BLOOD, URINE BLOOD 1+ (NEGATIVE); COLOR, URINE YELLOW (YELLOW); GLUCOSE, URINE (UA) AUTO NEGATIVE (NEGATIVE); KETONE, URINE AUTO NEGATIVE (NEGATIVE); LEUKOCYTE ESTERASE, URINE AUTO 3+ (NEGATIVE); MUCUS, URINE SMALL (NEGATIVE); NITRITE, URINE AUTO NEGATIVE (NEGATIVE); PROTEIN, URINE AUTO NEGATIVE (NEGATIVE); RBC, URINE AUTO 2 /HPF (0-3); SPECIFIC GRAVITY URINE AUTO 1.008 (1.002-1.035); SQUAMOUS EPITHELIAL CELL UR AU 1 /HPF (0-6); UROBILINOGEN, URINE AUTO 0.2 mg/dL (0.0-2.0); WBC, URINE AUTO 64 /HPF (0-3)
--- NOTE | 2020-10-10 13:36 | REP ---
INDICATION: 29wk preg hx of nephrolith R CVAT/pain COMPARISON: 06/10/2020 TECHNIQUE: Real time cheng scale ultrasound examination using curved array transducer. FINDINGS: Right kidney measures 13.0 x 6.2 x 6.8 cm and demonstrates moderate hydronephrosis without obvious nephrolithiasis, cystic or renal mass lesion. Left kidney measures 11.7 x 4.2 x 5.7 cm and demonstrates mild hydronephrosis without obvious nephrolithiasis, cystic or renal mass lesion. Bladder is normal in appearance and measures 8.1 x 6.7 x 4.9 cm IMPRESSION: 1. Bilateral hydronephrosis (right greater than left). Findings are nonspecific and may be related. <Electronically signed by Hosea Woody > 10/10/20 [id number]
--- NOTE | 2020-10-10 13:38 | REP ---
INDICATION: 29wk preg f/u for heart/VOTs and growth COMPARISON: 07/17/2020 TECHNIQUE: Transabdominal obstetrical ultrasound with color Doppler evaluation. FINDINGS: Examination demonstrates a single live intrauterine in cephalic presentation. motion is identified by technologist. Placenta is noted posterior and grade 2 without evidence for placenta previa or abruption. Amniotic fluid volume is normal. Cervix measures 3.9 cm in length and appears closed.. Gestational age by LMP 31 weeks 0 days with RAMIRO 12/12/2020. Gestational age by current measurements 29 weeks 6 days with RAMIRO 12/20/2020. FHR equals 128 beats per minute. Estimated weight 1383 grams (28thpercentile). FREDY: 15.6 cm (8.8-23.8) Umbilical artery SD ratio: 3.29 (1.90-3.98) Incomplete evaluation of the heart/ventricular outflow tracts noted. IMPRESSION: Single live intrauterine in cephalic presentation demonstrating appropriate estimated weight and interval growth. <Electronically signed by Hosea Woody > 10/10/20 [id number]
[2020-10-10] MEDS ORDERED: KEFL500C17 PO (14:04)
--- NOTE | 2020-10-10 14:28 | IPNPDOC ---
Text Note Date of Service The patient was seen on 10/10/20. NOTE Triage Note Daniella is a 25yo with SIUP at 29w3d by lmp who presents via ambulance (as a patient of Dr. Carmen) for acute, worsening right sided back pain. She notes history of nephrolithiasis (renal u/s from Jun 2020 shows nephrolith 3 and 4mm, 1 in each kidney), but she is not sure that her current pain is related to this, though she has passed stones in the past. She states pain began last night around midnight, worsened toward the morning. Has not been hydrating well (IV was started by EMS). NO fevers/chills. Has some nausea, no vomiting. NO obstetric complaints- feels good movement, no ctx, no lof, no vb. PMhx is significant for nephrolithiasis as well as an followed by a PLTCS for placental abruption at 36wk with severe eclampsia post-. Significantly, she has. Vitals wnl, afebrile General: WDWN, sitting up in bed in obvious discomfort (at the beginning of the encounter). After pain medication, patient resting comfortably Abdomen: soft, gravid, NTTP Back: skin normal, no left CVA, patient had difficulty sitting up even 2/2 pain in her back and even as I gently touched all down the right side of her back she complained of pain (mostly apprehensive) Extremities: no edema of BLE Cat I FHRT with +accels, -decels, mod [place]: no ctx pattern Labs: Initial urinalysis had 20 squam so had RN perform cath UA Cath urinalysis: 64 WBC, negative nitrite, 3+ leuk esterase, 1+ bacteria and 2 RBCs CBC: WBC 14, H/H 10/31.1, plt 229 CMP: creatinine 0.53, LFTs wnl Radiology: Renal ultrasound today shows NO nephrolithiasis, moderate hydronephrosis R>L, likely related to OB ultrasound shows 28% growth, still inadequate cardiac views Assessment: Daniella is a 25yo with SIUP at 29w3d by lmp with resolution of right back pain after receiving a single dose of stadol, suggestive that she passed a nephrolith (especially since June renal u/s showed a nephrolith in the kidney and today's u/s shows no nephrolith). Based on urinalysis, she does have a UTI as well, but I do not suspect pyelonephritis since she is afebrile and has no other sx since back pain resolved. Normal creatinine. Reassuring assessment. She is anemic on today's labs. Plan: -Safe for discharge home -Discussed at length diagnosis of likely now passed right nephrolith and UTI. Discussed I do not believe she has pyelonephritis, but if she develops fevers/chills, severe back pain again or anything else concerning to her, she needs to call. Otherwise, follow up with Dr. Carmen as previously scheduled on 10/13/20. -Rx keflex 500mg QID x5 days to [facility], discussed patient needs to take full course of medicine. She will need test of cure in office -Discussed findings of OB u/s, now 28%ile rather than 3%ile which is reassuring. Still did not get all cardiac views, which I instructed her to discussed with Dr. Carmen in office visit and she agreed to do so. He may order a f/u u/s. -Also will Rx ferrous sulfate -Cath urine culture pending MD LUKE Reaves Fishbone, I+O Mele BUTLER I+O Laboratory Tests 10/10/20 11:57 Vital Signs Date Time Temp Pulse Resp B/P (MAP) Pulse Ox O2 Delivery O2 Flow Rate FiO2 10/10/20 13:20 88 136/75 (95) 10/10/20 12:39 18 10/10/20 12:29 Room Air 10/10/20 11:10 98.7 Lydia Whiting MD Oct 10, 2020 14:28
[2020-10-10] MEDS ORDERED: FERR325T3 PO (14:31)
== END 2020-10-10 15:10 | disposition home or self-care (01) ==
LOC: M LDO 11:01
PROVIDERS: ATTEND Obstetrics & Gynecology
DX: O23.43 Unspecified infection of urinary tract in pregnancy, third trimester (principal); Z3A.29 29 weeks gestation of pregnancy; Z91.018 Allergy to other foods; Z91.040 Latex allergy status
CPT/HCPCS: 36415; 59025; 76775; 76816; 80053; 81001; 85027; 87088; 87186; 96374; J0595; J2405

== ENCOUNTER → 2020-11-10 | Outpatient (REF) | payer OTHER ==
[~2020-11-10] MED LIST changes: +DOK1CAP7 PO; +FERR325T3 PO; +IBUP80TA PO; +KEFL500C17 PO; +PERCOCET PO; +VALT500T PO
== END ==
LOC: EDSTATUS 12:00 → M LAB REF 14:00
PROVIDERS: ATTEND Obstetrics & Gynecology
DX: Z34.83 Encounter for supervision of other normal pregnancy, third trimester (principal); Z36.85 Encounter for antenatal screening for Streptococcus B

== ENCOUNTER 2020-11-29 15:23 | Inpatient (IN) | payer OTHER ==
[~2020-11-29] VITALS: Ht 154.9 cm; Wt 74.0 kg
[2020-11-29] VITALS (9 sets, daily range): BP systolic 125–144; BP diastolic 73–100
[~2020-11-29 15:23] MED LIST changes: -DOK1CAP7 PO; -IBUP80TA PO; -PERCOCET PO
[2020-11-29] MEDS ORDERED: LACTATED RINGER'S 1000 ML IV STA (16:26)
[2020-11-29 17:17] LABS: HEMATOCRIT 34.6 % (36.0-47.0); HEMOGLOBIN 10.7 g/dl (12.0-15.5); MEAN CORPUSCULAR HEMOGLOBIN 27.7 pg (27.0-33.0); MEAN CORPUSCULAR HGB CONC 30.9 g/dl (32.0-36.5); MEAN CORPUSCULAR VOLUME 89.6 fl (80.0-96.0); PLATELET COUNT, AUTOMATED 349 10^3/uL (150-450); RED BLOOD COUNT 3.86 10^6/uL (4.00-5.40); WHITE BLOOD COUNT 12.8 10^3/uL (4.0-10.0)
[2020-11-29 17:34] LABS: TOTAL PROTEIN,RANDOM URINE 74.1 MG/DL (0.0-12.0)
[2020-11-29 18:03] LABS: ALBUMIN 2.6 GM/DL (3.2-5.2); ALT/SGPT 13 U/L (12-78); BILIRUBIN,TOTAL 0.3 MG/DL (0.2-1.0); BLOOD UREA NITROGEN 9 MG/DL (7-18); CALCIUM LEVEL 8.3 MG/DL (8.5-10.1); CARBON DIOXIDE LEVEL 20 MEQ/L (21-32); CHLORIDE LEVEL 109 MEQ/L (98-107); CREATININE FOR GFR 0.57 MG/DL (0.55-1.30); GLOMERULAR FILTRATION RATE > 60.0 (>60); GLUCOSE, FASTING 66 MG/DL (70-100); POTASSIUM SERUM 5.1 MEQ/L (3.5-5.1); SODIUM LEVEL 138 MEQ/L (136-145); TOTAL PROTEIN 7.1 GM/DL (6.4-8.2)
[2020-11-29] MEDS ORDERED: BICITRA 30ML SOLN UDC PO ONE (18:05)
[2020-11-29] MEDS ORDERED: ceFAZolin SOD 2 GM in IV 1 EA IV ONE (18:05)
--- NOTE | 2020-11-29 18:40 | HPEPDOC ---
Obstetrical History & Physical General Date of Admission Nov 29, 2020 at 17:48 History of Present Illness Daniella is a 25yo with SIUP at 38w0d by 11wk u/s who presents today for leaking fluid. Workup for ROM was NEGATIVE (negative nitrazine, ferning, pooling, valsalva and MVP on TAUS was 9cm). However, on presentation she was noted to have intermittent mild range bp's and lab workup is revealing for proteinuria (urine prot:creat 0.52), so she meets criteria for pre-eclampsia withOUT severe features. Has occasional HAs and vision floaters (no scotoma), nothing persistent. Her other labs are benign (known anemia but plt/creat/LFTs wnl). She has history of a prior delivery complicated by pre-eclampsia with severe features after a section for placental abruption. Chief Complaint: Pre-eclamsia Information Provided By: Patient Care Care: Good Care Dating Final EDC: Dec 13, 2020 Final EDC by: 1st trimester (US) Antepartum Course Diagnos(e)s New dx pre-eclampsia withOUT severe features, history of complicated by placental abruption at 36wk with emergency section and course complicated by pre-eclampsia with severe features, had e-coli UTI in , had HSV II outbreak 2 weeks ago, transportation issues (does not own a vehicle) and arrived via EMS Past Medical History Past Obstetrical History : Past Obstetrical History: Multigravida (G1: 40wk [id number] F, G2: 36wk emergency section in 2019 for placental abruption with severe pre-eclampsia received blood transfusion) 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 Marital Status: Family situation: Spouse/partner home Psychosocial History: No pertinent psych hx * Smoker: non-smoker Alcohol: Denies Drugs: denies (hx of marijuana use that ceased with +hcg) Allergies Coded Allergies: [place] (Verified Allergy, Intermediate, mandarin oranges - hives, swell ing, 03/19/19) lactose (Verified Allergy, Mild, gi upset, 03/19/19) latex (Verified Allergy, Mild, rash, 03/19/19) Medications Scheduled Cephalexin (Keflex) 500 Mg Capsule, 500 MG PO QID Ferrous Sulfate (Ferrous Sulfate) 325 Mg Tablet.dr, 1 TAB PO BID Prenat 115/Iron Fum/Folic/Dss ( 19 Tablet) 1 Each Tablet, 1 TAB PO DAILY Valacyclovir HCl (Valtrex) 500 Mg Tablet, 500 MG PO BID Physical Examination Physical Examination GENERAL: Alert and oriented times three. BREAST: . ABDOMEN: Gravid and non-tender to touch. FETUS: Is vertex (VTX) by sterile vaginal examination (SVE) and TAUS. MVP 9cm. EXTREMITIES: No edema of bilateral LE Negative nitrazine, ferning, pooling, valsalva Vital Signs/I&O Vital Signs Date Time Temp Pulse Resp B/P (MAP) Pulse Ox O2 Delivery O2 Flow Rate FiO2 11/29/20 16:59 73 125/77 (93) 11/29/20 15:38 97.4 18 Room Air Laboratory Data 24H LABS Laboratory Tests 2 11/29/20 16:47: Nucleated Red Blood Cells % (auto) 0.0, Urine Random Creatinine 142.0, Urine Random Total Protein 74.1H, Anion Gap 9, Glomerular Filtration Rate > 60.0, Calcium Level 8.3L, Total Bilirubin 0.3, Aspartate Amino Transf (AST/SGOT) 28, Alanine Aminotransferase (ALT/SGPT) 13, Alkaline Phosphatase 141H, Total Protein 7.1, Albumin 2.6L, Albumin/Globulin Ratio 0.6L 11/29/20 17:55: CBC/BMP Laboratory Tests 11/29/20 16:47 Pertinent Laboratoy Data Blood Type: A+ RBC Antibody Screen: Negative HIV: Negative Hepatitis B: Negative Hepatitis C: Negative Rapid Plasma Reagin: Nonreactive Rubella: Immune Chlamydia/Gonorrhea: Negative Group B Streptococcus: Negative Glucose Tolerance Test: 108 Anatomy Ultrasound Ultrasound Date: Jul 17, 2020 Placenta Location: Posterior Normal Anatomy: Yes (3rd %ile at 18wk) Placenta Previa: No Other Ultrasounds 10/10/20 29w6d appropriate growth Steroid Therapy Steroid Therapy: No Vaginal Examination Dilation: 1cm Effacement: other (thick) Station: -3 Cervical Consistency: Firm Cervical Position: Posterior Presentation: Cephalic presentation Assessment Heart Rate (FHR): 120 Variability: Moderate Accelerations: Positive Decelerations: None Tocometer Contractions: Yes Frequency: irregular Assessment/Plan Assessment Daniella is a 25yo with SIUP at 38w0d by 11wk u/s with pre-eclampsia withOUT severe features having history of prior delivery complicated by pre- eclampsia with severe features after a section for placental abruption at 36wk. She was scheduled for RLTCS on 08 December at 39wk, but given her new diagnosis, will proceed with RLTCS today. Declines TOLAC, though she has a history of prior successful . Declines BTL. SCE 1/thick/high, cephalic on TAUS. Benign exam. Cat I FHRT. Last ate at 0100 last night she states. She originally presented for ROM workup, but it was NEGATIVE (negative nitrazine, ferning, pooling, valsalva and MVP on TAUS was 9cm). However, on presentation she was noted to have intermittent mild range bp's and lab workup is revealing for proteinuria (urine prot:creat 0.52). Her other labs are benign (known anemia but plt/creat/LFTs wnl). Plan Admit and orient. 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 Discussed new dx of pre-eclampsia withOUT severe features and need for delivery today- patient is happy to have baby today. Discussed consent forms for RLTCS and blood transfusion at length with all r/b/a, patient and I signed them together. Covid rapid swab sent. Diet: NPO Group B Streptococcus (GBS) negative Labs and intravenous (IV) per unit protocol. UDS added for hx of prior abruption. Lactated Ringers (LR): Bolus 1000 mL, then at 125 mL/hr. Social work consult will be placed Team aware of plan, will proceed to OR when team is ready Lydia Whiting MD Nov 29, 2020 18:19
[2020-11-29] MEDS ORDERED: ONDANSETRON 4MG/2ML VIAL IV PRN ×2 (18:49→20:35)
[2020-11-29] MEDS ORDERED: NALBUPHINE HCL 10 MG/ML AMP (J2300) IV PRN ×2 (18:49→20:35)
[2020-11-29] MEDS ORDERED: METOCLOPRAMIDE INJ 10MG/2ML VIAL (J2765 PER 1) IV PRN (18:49)
[2020-11-29] MEDS ORDERED: NALOXONE INJ 0.4MG/1ML VIAL (J2310 PER 1MG) IV PRN ×2 (18:49)
[2020-11-29] MEDS ORDERED: diphenhydrAMINE 50MG/ML VIAL (J1200) IV PRN (18:49)
[2020-11-29] MEDS ORDERED: KETOROLAC 60MG 2ML VIAL As Ordered ONE (19:35)
[2020-11-29] MEDS ORDERED: fentaNYL 100 MCG/2 ML INJECTION (J3010) As Ordered ONE (19:35)
[2020-11-29] MEDS ORDERED: dexameTHASONE 4 MG/ML 1ML VIAL (J1100 PER 1MG) As Ordered ONE (19:35)
[2020-11-29] MEDS ORDERED: ONDANSETRON 4MG/2ML VIAL As Ordered ONE (19:35)
[2020-11-29] MEDS ORDERED: METOCLOPRAMIDE INJ 10MG/2ML VIAL (J2765 PER 1) As Ordered ONE (19:35)
[2020-11-29] MEDS ORDERED: MIDAZOLAM INJ 2MG/2ML VIAL (J2250 PER 1MG) As Ordered ONE (19:35)
[2020-11-29] MEDS ORDERED: OXYTOCIN 30 UNITS IN 0.9% NaCl 500ML IV BAG (J2590) As Ordered ONE (19:35)
[2020-11-29] MEDS ORDERED: MORPHINE PRES-FREE INJ 10 MG/10 ML VIAL (J2274) As Ordered ONE (19:35)
[2020-11-29] MEDS ORDERED: PHENYLephrine 500MCG 5ML (100MCG/ML) SYRINGE As Ordered ONE (19:35)
[2020-11-29] MEDS ORDERED: ePHEDrine SULFATE 25 MG/5 ML(5MG/ML) SYRINGE As Ordered ONE (19:37)
[2020-11-29] MEDS ORDERED: MOM 30ML SUSPENSION UDC PO PRN (20:30)
[2020-11-29] MEDS ORDERED: PERCOCET 5MG/325MG TAB PO PRN (20:30)
[2020-11-29] MEDS ORDERED: SIMETHICONE 80MG CHEW TAB PO PRN (20:30)
[2020-11-29] MEDS ORDERED: MEASLES,MUMPS,RUBELLA VACCINE INJ (MMR-II) (90707) SC SCH (20:30)
[2020-11-29] MEDS ORDERED: OXYTOCIN DRIP 30 UNITS in IV 1 EA IV SCH (20:30)
[2020-11-29] MEDS ORDERED: RHOGAM 300 MCG (1500 IU) INJ (J2790) IM SCH (20:30)
[2020-11-29] MEDS ORDERED: LR 1,000 ML IV SCH ×2 (20:35→22:43)
[2020-11-29] MEDS ORDERED: fentaNYL 100 MCG/2 ML INJECTION (J3010) IV PRN (20:35)
[2020-11-29] MEDS ORDERED: PERCOCET PO (21:13)
[2020-11-29] MEDS ORDERED: IBUP80TA PO (21:13)
[2020-11-29] MEDS ORDERED: DOK1CAP7 PO (21:13)
[2020-11-29] MEDS: DOCUSATE SODIUM 100MG CAPSULE PO SCH (22:06)
[2020-11-29] MEDS: PERCOCET 5MG/325MG TAB PO PRN (22:56)
[2020-11-30] VITALS (10 sets, daily range): BP systolic 118–140; BP diastolic 65–78
[2020-11-30] MEDS: KETOROLAC 30 MG/ML 1ML VIAL IV SCH ×3 (02:05→14:56)
[2020-11-30] MEDS: PERCOCET 5MG/325MG TAB PO PRN ×5 (05:06→19:55)
[2020-11-30] MEDS: DOCUSATE SODIUM 100MG CAPSULE PO SCH ×2 (07:59→19:54)
[2020-11-30] MEDS: PRENATAL VITAMINS CHEWABLE TABLET PO SCH (07:59)
[2020-11-30 08:18] LABS: AMPHETAMINES URINE REFLEX NEGATIVE (NEGATIVE); BARBITURATES URINE REFLEX NEGATIVE (NEGATIVE); BENZODIAZEPINES URINE REFLEX NEGATIVE (NEGATIVE); CANNABINOIDS URINE REFLEX NEGATIVE (NEGATIVE); COCAINE METABOLITE URINE REFLE NEGATIVE (NEGATIVE); METHADONE URINE REFLEX NEGATIVE (NEGATIVE); OPIATES URINE REFLEX NEGATIVE (NEGATIVE); PHENCYCLIDINE URINE REFLEX NEGATIVE (NEGATIVE)
[2020-11-30 08:22] LABS: HEMATOCRIT 24.3 % (36.0-47.0); MEAN CORPUSCULAR HEMOGLOBIN 28.7 pg (27.0-33.0); MEAN CORPUSCULAR HGB CONC 32.1 g/dl (32.0-36.5); MEAN CORPUSCULAR VOLUME 89.3 fl (80.0-96.0); PLATELET COUNT, AUTOMATED 286 10^3/uL (150-450); RED BLOOD COUNT 2.72 10^6/uL (4.00-5.40); WHITE BLOOD COUNT 14.5 10^3/uL (4.0-10.0)
[2020-11-30 08:24] LABS: HEMOGLOBIN 7.8 g/dl (12.0-15.5)
[2020-11-30 08:59] LABS: ALT/SGPT 10 U/L (12-78); BILIRUBIN,TOTAL < 0.1 MG/DL (0.2-1.0); BLOOD UREA NITROGEN 7 MG/DL (7-18); CALCIUM LEVEL 8.1 MG/DL (8.5-10.1); CARBON DIOXIDE LEVEL 24 MEQ/L (21-32); CHLORIDE LEVEL 109 MEQ/L (98-107); CREATININE FOR GFR 0.54 MG/DL (0.55-1.30); GLOMERULAR FILTRATION RATE > 60.0 (>60); GLUCOSE, FASTING 73 MG/DL (70-100); POTASSIUM SERUM 4.3 MEQ/L (3.5-5.1); SODIUM LEVEL 140 MEQ/L (136-145)
--- NOTE | 2020-11-30 11:05 | RO ---
OPERATIVE NOTE DATE OF OPERATION: 11/29/2020 PREOPERATIVE DIAGNOSIS: 1. History of prior section. 2. Preeclampsia without severe features. 3. Declining TOLAC. POSTOPERATIVE DIAGNOSIS: 1. History of prior section. 2. Preeclampsia without severe features. 3. Declining TOLAC. PROCEDURE: Repeat low transverse section. SURGEON: Lydia Whiting MD ENLISTED ADVISOR: Vanessa Funez, Water Resource Manager ANESTHESIA: INDICATION FOR OPERATION: Daniella is a 25-year-old, G3, now P 2-1-0-3, who presented at 38 weeks, 0 days with chief complaint of leaking of fluid. She had a negative rupture of membrane workup, however, had mild range blood pressures and in the workup of these was noted to have preclampsia without severe features with a urine protein creatinine ratio of 0.52. She also has a history of severe preeclampsia after her prior delivery which was a at 36 weeks done emergently for placental abruption in 2019. She declined TOLAC and elected for a repeat section which she was actually scheduled for at 39 weeks but was counseled to do at 38 weeks given this new diagnosis of preeclampsia. MATERIAL FORWARDED TO THE LAB FOR EXAMINATION: Placenta. DESCRIPTION OF FINDINGS: Female in cephalic presentation, Apgars 7 and 9, weight 5 lb, 2 oz or 2330 gm. Normal appearing uterus. INFECTION CLASSIFICATION: 2. ESTIMATED BLOOD LOSS: 700 mL URINE OUTPUT: 100 mL IV FLUIDS: 1300 mL of lactated Ringer's. DESCRIPTION OF PROCEDURE: After obtaining informed consent, the patient was taken to the operating room. She had a category 1 heart rate tracing prior. She received spinal anesthesia and a Williamson catheter was placed along with bilateral sequential compression devices. She received 2 gm of IV Ancef prophylactically. She was prepped and draped in normal sterile fashion in dorsal supine position with a left lateral tilt. A timeout was performed to confirm patient name, date of , procedure and indication and the team was in agreement. Spinal anesthesia was found to be adequate using an Allis clamp. A Pfannenstiel skin incision was made through the prior incision line using a scalpel and carried through to the underlying layer of fascia using the Bovie cautery. The fascia was incised in the midline. The incision was extended laterally with Esquivel scissors. Superior and inferior aspects of the fascial incision were grasped with Myrna clamps, elevated and the underlying rectus muscles were dissected off bluntly and sharply. The peritoneum was entered digitally and the rectus muscles were in the midline. The peritoneal incision was extended superiorly and inferiorly with good visualization of the bladder and a Mobius retractor was then inserted. Vesicouterine peritoneum was identified, grasped with pickups and entered sharply with Metzenbaum scissors. The incision was extended laterally and the bladder flap was created digitally. The lower uterine segment was scored in a transverse fashion with a new scalpel. The uterus was entered bluntly and the incision was extended with traction with clear fluid in the amniotc sac noted. The infant's head was elevated to the level of the incision after using an Allis to rupture the bag. Fundal pressure was applied and the head easily delivered atraumatically in the OT position. The anterior shoulder, posterior shoulder and corpus were delivered without difficulty. The nose and mouth were suctioned with bulb suction. Cord was clamped x2 and cut. was handed off to the awaiting team. The placenta was then removed with traction on the cord and uterine massage and the uterus was left in situ and cleared of all clot and debris. The uterine incision was repaired with 0 Vicryl suture in a running locking fashion. A second layer of 0 Monocryl was used to close the hysterotomy incision in imbricating fashion. There was a few areas of continued bleeding which were addressed with [id number] sutures using 0 Vicryl suture and after that, Dominguez was applied along the incision line with hemostasis then noted. The gutters were cleared of clots. The peritoneum was closed after removing the Mobius retractor using a 3-0 Vicryl suture in a running fashion. The rectus muscles were inspected and did not need any reapproximation. The fascia was reapproximated with 0 Vicryl suture in a running fashion. The subcutaneous tissue was copiously irrigated. Artur's fascia was reapproximated using 3-0 Vicryl suture in a running fashion. Skin edges were reapproximated using three inverted interrupted stitches using 3-0 Vicryl suture followed by a running subcuticular stitch using 4-0 Monocryl suture. The incision was cleaned using wet lap, dried with a dry lap. Steri-Strips were applied in the usual fashion perpendicular to the Pfannenstiel incision and Optifoam dressing was layered on top. The vagina was cleared of all blood clot without active bleeding noted. The fundus was firm at U minus 2 cm. All counts were correct x2. The procedure was without complications and the patient tolerated the procedure well. She was taken to the recovery then on labor and delivery in stable condition.
--- NOTE | 2020-11-30 11:54 | IPNPDOC ---
Progress Note Date of Service: Nov 30, 2020 Day#: 1 Progress Note POD 1/PPD 1 SUBJECT: Daniella is a 25yo [id number] with s/p uncomplicated RLTCS at 38w0d for pre-eclampsia withOUT severe features having history of prior delivery complicated by pre-eclampsia with severe features after a section for placental abruption at 36wk. She is doing well day # 1. S he has been ambulating, voiding spontaneously without issue and tolerating regular diet. Breast feeding without issue. Reports lochia is like a normal period. Pain well controlled. No f/c/n/v/CP/SOB. OBJECTIVE: VITAL SIGNS: Within normal limits (very rare mild range bp), afebrile. Alert and oriented times three. Abdomen: Fundus firm at U-2. Soft, appropriately tender to palpation with no rebound/guarding. Pfannenstiel incision covered by dry/clean intact optifoam dressing with no erythema noted. Extremities: no pain with palpation of calves Labs: pre-op H/H 10.7/34.6 post-op H/H 7.8/24.3 Repeat CMP stable with normal LFTs and serum creatinine ASSESSMENT: Daniella is a 25yo [id number] with s/p uncomplicated RLTCS at 38w0d for pre-eclampsia withOUT severe features having history of prior delivery complicated by pre-eclampsia with severe features after a section for placental abruption at 36wk. She is doing well day # 1. Vitals within normal limits, afebrile, hemodynamically stable with no evidence of infection. PLAN: 1. Routine post-op and care 2. Percocet and Motrin for pain. 3. Encourage breast feeding and ambulation. 4. Interested in minipill for contraception after our discussion this morning (I asked her to consider LARC, but she is afraid of insertion of foreign body) 5. Regular diet 6. Will need follow up bp check and 2wk incision check with Dr. Carmen's office 7. Possible discharge home tomorrow if meeting all criteria Lydia Whiting MD VS, I&O, 24H, Fishbone Vital Signs/I&O Vital Signs Date Time Temp Pulse Resp B/P (MAP) Pulse Ox O2 Delivery O2 Flow Rate FiO2 11/30/20 09:23 16 11/30/20 08:36 97.5 81 118/69 98 Room Air I&O- Last 24 Hours up to 6 AM 11/30/20 06:00 Intake Total 1000 ml Output Total 2025 ml Balance -1025 ml Laboratory Data 24H LABS Laboratory Tests 2 11/29/20 16:47: Nucleated Red Blood Cells % (auto) 0.0, Urine Random Creatinine 142.0, Urine Random Total Protein 74.1H, Anion Gap 9, Glomerular Filtration Rate > 60.0, Calcium Level 8.3L, Total Bilirubin 0.3, Aspartate Amino Transf (AST/SGOT) 28, Alanine Aminotransferase (ALT/SGPT) 13, Alkaline Phosphatase 141H, Total Protein 7.1, Albumin 2.6L, Albumin/Globulin Ratio 0.6L, Syphilis Serology NONREACTIVE, Hepatitis B Surface Antigen NEGATIVEL 11/29/20 17:55: Coronavirus (COVID-19)(PCR) NEGATIVE 11/29/20 18:00: Urine Opiates Screen NEGATIVE, Urine Methadone Screen NEGATIVE, Urine Barbiturates Screen NEGATIVE, Urine Phencyclidine Screen NEGATIVE, Urine Amphetamines Screen NEGATIVE, Urine Benzodiazepines Screen NEGATIVE, Urine Cocaine Metabolite Screen NEGATIVE, Urine Cannabinoids Screen NEGATIVE 11/29/20 19:56: Serology Scanned Report Hepatitis B Testing 11/30/20 07:03: Nucleated Red Blood Cells % (auto) 0.0, Anion Gap 7L, Glomerular Filtration Rate > 60.0, Calcium Level 8.1L, Total Bilirubin < 0.1#L, Aspartate Amino Transf (AST/SGOT) 11, Alanine Aminotransferase (ALT/SGPT) 10L, Alkaline Phosphatase 92, Total Protein 5.0#L, Albumin 2.0#L, Albumin/Globulin Ratio 0.7L CBC/BMP Laboratory Tests 11/29/20 16:47 11/30/20 07:03 Lydia Whiting MD Nov 30, 2020 11:54
[2020-11-30] MEDS: IBUPROFEN 800 MG TAB PO SCH (19:53)
[2020-12-01] VITALS (7 sets, daily range): BP systolic 99–163; BP diastolic 53–89
[2020-12-01] MEDS: PERCOCET 5MG/325MG TAB PO PRN ×2 (02:23→07:25)
[2020-12-01] MEDS: IBUPROFEN 800 MG TAB PO SCH ×2 (03:48→11:40)
[2020-12-01] MEDS: PRENATAL VITAMINS CHEWABLE TABLET PO SCH (07:24)
[2020-12-01] MEDS: DOCUSATE SODIUM 100MG CAPSULE PO SCH (07:24)
--- NOTE | 2020-12-01 12:05 | IPNPDOC ---
Progress Note Date of Service: Dec 01, 2020 Day#: 2 Progress Note POD 2/PPD 2 SUBJECT: Daniella is a 25yo [id number] with s/p uncomplicated RLTCS at 38w0d for pre-eclampsia withOUT severe features having history of prior delivery complicated by pre-eclampsia with severe features after a section for placental abruption at 36wk. She is doing well day # 2. She has been ambulating, voiding spontaneously without issue and tolerating regular diet. Breast feeding without issue. Reports lochia is like a normal period. Pain well controlled. No f/c/n/v/CP/SOB. No MELENDEZ/vision changes/RUQ pain. OBJECTIVE: VITAL SIGNS: Within normal limits (occasional mild range bp), afebrile. Alert and oriented times three. Abdomen: Fundus firm at U-2. Soft, appropriately tender to palpation with no rebound/guarding. Pfannenstiel incision covered by dry/clean intact optifoam dressing with no erythema noted. Extremities: no pain with palpation of calves Labs: pre-op H/H 10.7/34.6 post-op H/H 7.8/24.3 Repeat CMP stable with normal LFTs and serum creatinine ASSESSMENT: Daniella is a 25yo [id number] with s/p uncomplicated RLTCS at 38w0d for pre-eclampsia withOUT severe features having history of prior delivery complicated by pre-eclampsia with severe features after a section for placental abruption at 36wk. She is doing well day # 2. Occasional mild range bp, afebrile, hemodynamically stable with no evidence of infection. No s/sx of worsening pre-E. PLAN: 1. Routine post-op and care. Consider discharge later this afternoon if bp's normal. 2. Percocet and Motrin for pain. 3. Encourage breast feeding and ambulation. 4. Interested in minipill for contraception 5. Will need follow up bp check and 2wk incision check with Dr. Carmen's office Lydia Whiting MD VS, I&O, 24H, Fishbone Vital Signs/I&O Vital Signs Date Time Temp Pulse Resp B/P (MAP) Pulse Ox O2 Delivery O2 Flow Rate FiO2 12/01/20 10:15 98.3 93 18 153/89 (110) 99 12/01/20 03:00 Room Air I&O- Last 24 Hours up to 6 AM 12/01/20 06:00 Intake Total 1062 ml Output Total 1450 ml Balance -388 ml Lydia Whiting MD Dec 01, 2020 12:05
--- NOTE | 2020-12-01 16:27 | DS.PDOC ---
Discharge Summary General Date of Admission Nov 29, 2020 at 17:48 Date of Discharge December 01, 2020 Attending Physician: Lydia Whiting MD Discharge Summary PROCEDURES PERFORMED DURING STAY: repeat low transverse section ADMITTING DIAGNOSES: 1. 38wk pre-eclampsia withOUT severe features 2. History of prior section DISCHARGE DIAGNOSES: 1. 38wk pre-eclampsia withOUT severe features 2. History of prior section COMPLICATIONS/CHIEF COMPLAINT: Repeat Section. HISTORY OF PRESENT ILLNESS/HOSPITAL COURSE: Daniella is a 25yo [id number] with s/p uncomplicated RLTCS at 38w0d for pre- eclampsia withOUT severe features having history of prior delivery complicated by pre-eclampsia with severe features after a section for placental abruption at 36wk. She is doing well day # 2 and has had a benign /post-op course. Mostly normal bp's with occasional mild range bp, afebrile, hemodynamically stable with no evidence of infection. No s/sx of worsening pre-E. DISCHARGE MEDICATIONS: Please see below. ALLERGIES: Please see below. PHYSICAL EXAMINATION ON DISCHARGE: VITAL SIGNS: Within normal limits (occasional mild range bp), afebrile. Alert and oriented times three. Abdomen: Fundus firm at U-2. Soft, appropriately tender to palpation with no rebound/guarding. Pfannenstiel incision covered by dry/clean intact optifoam dressing with no erythema noted. Extremities: no pain with palpation of calves LABORATORY DATA: Please see below. pre-op H/H 10.7/34.6 post-op H/H 7.8/24.3 Repeat CMP stable with normal LFTs and serum creatinine DIET: regular DISCHARGE PLAN/INSTRUCTIONS: 1. Discharge to home 2. Percocet and Motrin for pain. 3. Encourage breast feeding and ambulation. 4. Interested in minipill for contraception 5. Will need follow up bp check and 2wk incision check with Dr. Carmen's office DISCHARGE CONDITION: Stable TIME SPENT ON DISCHARGE: Greater than 20 minutes. Lydia Whiting MD Vital Signs/I&Os Vital Signs Date Time Temp Pulse Resp B/P (MAP) Pulse Ox O2 Delivery O2 Flow Rate FiO2 12/01/20 16:01 76 131/60 (83) 12/01/20 13:30 98.8 18 12/01/20 10:15 99 12/01/20 03:00 Room Air I&O- Last 24 Hours up to 6 AM 12/01/20 06:00 Intake Total 1062 ml Output Total 1450 ml Balance -388 ml Discharge Medications Scheduled Docusate Sodium (Dok) 100 Mg Capsule, 100 MG PO BID Ferrous Sulfate (Ferrous Sulfate) 325 Mg Tablet.dr, 1 TAB PO BID Ibuprofen (Ibuprofen) 800 Mg Tablet, 800 MG PO Q8H Prenat 115/Iron Fum/Folic/Dss ( 19 Tablet) 1 Each Tablet, 1 TAB PO DAILY, (Reported) Scheduled PRN Oxycodone/Acetaminophen (Oxycodone-Acetaminophen 5-325) 1 Each Tablet, 1 TAB PO Q4H PRN for MILD/MODERATE PAIN (PS 1-7) Allergies Coded Allergies: [place] (Verified Allergy, Intermediate, mandarin oranges - hives, swelling, 03/19/19) lactose (Verified Allergy, Mild, gi upset, 03/19/19) latex (Verified Allergy, Mild, rash, 03/19/19) Lydia Whiting MD Dec 01, 2020 16:27
== END 2020-12-01 17:30 | disposition home or self-care (01) | DRG 540 ==
LOC: M LDO 15:23 → M LDI 17:48 → M OBS 22:19
PROVIDERS: ADMIT Obstetrics & Gynecology; ATTEND Obstetrics & Gynecology
PROC: 10D00Z1 Extraction of Products of Conception, Low, Open Approach (ICD-10-PCS; principal; 2020-11-29 18:54)
DX: O14.03 Mild to moderate pre-eclampsia, third trimester (principal); O34.211 Maternal care for low transverse scar from previous cesarean delivery; Z3A.38 38 weeks gestation of pregnancy; Z37.0 Single live birth

== ENCOUNTER → 2021-06-17 | Outpatient (CLI) | payer OTHER ==
[~2021-06-17] MED LIST changes: +DOK1CAP4 PO; +IBUP80TA PO; +PERCOCET PO
== END ==
LOC: M LABSMTC 11:11
PROVIDERS: ATTEND Family Medicine
DX: Z11.52 Encounter for screening for COVID-19 (principal); Z20.822 Contact with and (suspected) exposure to COVID-19

== ENCOUNTER 2022-03-09 22:00 | Emergency (ER) | payer OTHER ==
[2022-03-09 22:13] VITALS: BP 113/56
[2022-03-09] MEDS ORDERED: ACETAMINOPHEN TAB 650MG DOSE (2X325MG) PO ONE (22:20)
[2022-03-09] MEDS ORDERED: KETOROLAC 30 MG/ML 1ML VIAL IV ONE (22:20)
[2022-03-09] MEDS ORDERED: NS 1,000 ML IV ONE (22:20)
[2022-03-09 22:40] LABS: BASO % 0.6 % (0.0-1.0); EOS # 0.2 10^3/uL (0.0-0.5); EOS % 2.7 % (0.0-3.0); HEMATOCRIT 36.8 % (36.0-47.0); HEMOGLOBIN 11.6 g/dl (12.0-15.5); LYMPH # 0.7 10^3/uL (1.5-5.0); LYMPH % 10.5 % (24.0-44.0); MEAN CORPUSCULAR HEMOGLOBIN 25.1 pg (27.0-33.0); MEAN CORPUSCULAR HGB CONC 31.5 g/dl (32.0-36.5); MEAN CORPUSCULAR VOLUME 79.7 fl (80.0-96.0); MONO # 0.6 10^3/uL (0.0-0.8); MONO % 8.1 % (2.0-8.0); NEUTROPHILS # 5.4 10^3/uL (1.5-8.5); NEUTROPHILS % 77.7 % (36.0-66.0); PLATELET COUNT, AUTOMATED 314 10^3/uL (150-450); RED BLOOD COUNT 4.62 10^6/uL (4.00-5.40); WHITE BLOOD COUNT 6.9 10^3/uL (4.0-10.0)
[2022-03-09 23:06] LABS: ALBUMIN 3.4 GM/DL (3.2-5.2); ALT/SGPT 15 U/L (12-78); BILIRUBIN,DIRECT < 0.1 MG/DL (0.0-0.2); BILIRUBIN,TOTAL 0.2 MG/DL (0.2-1.0); BLOOD UREA NITROGEN 8 MG/DL (7-18); CALCIUM LEVEL 8.6 MG/DL (8.5-10.1); CARBON DIOXIDE LEVEL 22 MEQ/L (21-32); CHLORIDE LEVEL 106 MEQ/L (98-107); GLOMERULAR FILTRATION RATE > 60.0 (>60); GLUCOSE, FASTING 104 MG/DL (70-100); LIPASE 78 U/L (73-393); POTASSIUM SERUM 3.8 MEQ/L (3.5-5.1); SODIUM LEVEL 136 MEQ/L (136-145); TOTAL PROTEIN 6.8 GM/DL (6.4-8.2)
[2022-03-09 23:17] LABS: RSV AMPLIFICATION NEGATIVE (NEGATIVE)
[2022-03-09] MEDS ORDERED: OSEL75CA PO (23:44)
[2022-03-09] MEDS ORDERED: ONDA4TAB6 PO (23:44)
[2022-03-09] MEDS ORDERED: OSELTAMIVIR PHOSPHATE 75 MG CAP (TAMIFLU) PO ONE (23:45)
[2022-03-09] MEDS ORDERED: ONDANSETRON 4MG ORAL DISINTEGRATING TAB PO ONE (23:45)
== END 2022-03-10 00:08 | disposition home or self-care (01) ==
LOC: M ED 22:00 → EDBD 22:00 → M ED 03-10 00:08
DX: J09.X2 Influenza due to identified novel influenza A virus with other respiratory manifestations (principal); R50.9 Fever, unspecified; N20.0 Calculus of kidney; I10 Essential (primary) hypertension; F31.30 Bipolar disorder, current episode depressed, mild or moderate severity, unspecified; F41.9 Anxiety disorder, unspecified; F60.3 Borderline personality disorder; Z91.040 Latex allergy status; Z79.899 Other long term (current) drug therapy
CPT/HCPCS: 74176; 80048; 80076; 81001; 83605; 83690; 84702; 85025; 87040; 87077; 87631; 96361; 96374; 99284; J1885

== ENCOUNTER 2022-09-28 19:37 | Inpatient (IN) | payer MEDICAID, OTHER ==
[~2022-09-28] VITALS: Ht 154.9 cm; Wt 50.5 kg
[~2022-09-28 19:37] MED LIST changes: +ONDA4TAB6 PO; +OSEL75CA PO
[2022-09-28 22:07] LABS: HEMATOCRIT 38.4 % (36.0-47.0); MEAN CORPUSCULAR HEMOGLOBIN 27.3 pg (27.0-33.0); MEAN CORPUSCULAR HGB CONC 31.3 g/dl (32.0-36.5); MEAN CORPUSCULAR VOLUME 87.5 fl (80.0-96.0); PLATELET COUNT, AUTOMATED 406 10^3/uL (150-450); RED BLOOD COUNT 4.39 10^6/uL (4.00-5.40); WHITE BLOOD COUNT 11.3 10^3/uL (4.0-10.0)
[2022-09-28 22:34] LABS: AMPHETAMINES LEVEL URINE NEGATIVE (NEGATIVE); BARBITURATES URINE NEGATIVE (NEGATIVE); BENZODIAZEPINES URINE NEGATIVE (NEGATIVE); COCAINE METABOLITE URINE NEGATIVE (NEGATIVE); METHADONE URINE NEGATIVE (NEGATIVE); OPIATES URINE NEGATIVE (NEGATIVE)
[2022-09-28 22:35] LABS: PHENCYCLIDINE URINE NEGATIVE (NEGATIVE)
[2022-09-28 22:36] LABS: CANNABINOIDS URINE POSITIVE (NEGATIVE)
[2022-09-28 22:37] LABS: ETHYL ALCOHOL (ETHANOL) 0.004 % (0.000-0.010)
[2022-09-28 22:38] LABS: ACETAMINOPHEN LEVEL < 2.0 UG/ML (10.0-20.0); ALBUMIN 3.5 G/DL (3.2-5.2); ALKALINE PHOSPHATASE 54 U/L (46-116); ALT/SGPT 11 U/L (7.0-40); AST/SGOT 11 U/L (<34); BILIRUBIN,DIRECT < 0.1 MG/DL (<0.4); BILIRUBIN,TOTAL 0.2 MG/DL (0.3-1.2); BLOOD UREA NITROGEN 12 MG/DL (9-23); CALCIUM LEVEL 8.9 MG/DL (8.5-10.1); CARBON DIOXIDE LEVEL 28 MMOL/L (20-31); CHLORIDE LEVEL 107 MMOL/L (98-107); CREATININE FOR GFR 1.09 MG/DL (0.55-1.30); GLOMERULAR FILTRATION RATE > 60.0 (>60); GLUCOSE, FASTING 77 MG/DL (60-100); POTASSIUM SERUM 4.2 MMOL/L (3.5-5.1); SALICYLATE LEVEL < 3.0 MG/DL (<30); SODIUM LEVEL 141 MMOL/L (136-145); TOTAL PROTEIN 6.2 G/DL (5.7-8.2)
[2022-09-28 22:39] LABS: HCG, SERUM QUALITATIVE NEGATIVE (NEGATIVE)
[2022-09-28 22:44] LABS: RSV AMPLIFICATION NEGATIVE (NEGATIVE)
[2022-09-28] MEDS ORDERED: hydrOXYzine 50 MG TAB PO PRN (23:35)
[2022-09-28] MEDS ORDERED: NICOTINE 21MG/24HR 1 EA TRANSDERMAL TD PRN (23:35)
[2022-09-28] MEDS ORDERED: MAALOX 30 ML SUSP *UDC PO PRN (23:35)
[2022-09-28] MEDS ORDERED: MOM 30ML SUSPENSION UDC PO PRN (23:35)
[2022-09-28] MEDS ORDERED: ACETAMINOPHEN TAB 650MG DOSE (2X325MG) PO PRN (23:35)
[2022-09-28] MEDS ORDERED: traZODone 50 MG TAB PO PRN (23:35)
[2022-09-29 01:35] VITALS: BP 105/54
[2022-09-29] MEDS ORDERED: VALA500T5 PO (09:15)
[2022-09-29] MEDS ORDERED: HOME MED LIST COMPLETE! XX SCH (09:15)
[2022-09-29] MEDS: MULTIVITAMINS/MINERALS THERAP 1 TAB PO SCH (11:17)
[2022-09-29] MEDS: VENLAFAXINE **XR** 37.5 MG CAPSULE PO SCH (11:17)
[2022-09-29] MEDS: valACYclovir HCL 500 MG TAB PO SCH (12:29)
[2022-09-29] MEDS: metroNIDAZOLE (FLAGYL) 500MG TABLET PO SCH ×2 (12:29→20:42)
[2022-09-29 14:42] VITALS: BP 116/55
[2022-09-29 18:03] VITALS: BP 146/66
[2022-09-29] MEDS ORDERED: ARIPiprazole 2 MG TAB PO SCH (21:00)
[2022-09-30 06:29] VITALS: BP 106/53
[2022-09-30] MEDS: VENLAFAXINE **XR** 37.5 MG CAPSULE PO SCH (07:50)
[2022-09-30] MEDS: valACYclovir HCL 500 MG TAB PO SCH (07:50)
[2022-09-30] MEDS: MULTIVITAMINS/MINERALS THERAP 1 TAB PO SCH (07:50)
[2022-09-30] MEDS: metroNIDAZOLE (FLAGYL) 500MG TABLET PO SCH (07:50)
[2022-09-30] MEDS ORDERED: VENL37.598 PO (10:06)
[2022-09-30] MEDS ORDERED: ABIL1TAB13 PO (10:06)
[2022-09-30] MEDS ORDERED: NICO21PAT TD (10:06)
[2022-09-30] MEDS ORDERED: HYDR50TA70 PO (10:06)
== END 2022-09-30 11:20 | disposition home or self-care (01) | DRG 756 ==
LOC: M ED 19:37 → M ED INP 23:33 → M PSY 09-29 00:34
PROVIDERS: ADMIT Student in an Organized Health Care Education/Training Program; ATTEND Student in an Organized Health Care Education/Training Program
DX: F44.9 Dissociative and conversion disorder, unspecified (principal); F60.3 Borderline personality disorder; F43.10 Post-traumatic stress disorder, unspecified; Z91.51 Personal history of suicidal behavior; R44.0 Auditory hallucinations; F17.290 Nicotine dependence, other tobacco product, uncomplicated; Z20.822 Contact with and (suspected) exposure to COVID-19; Z91.411 Personal history of adult psychological abuse; Z56.0 Unemployment, unspecified; Z79.899 Other long term (current) drug therapy; Z91.018 Allergy to other foods; Z91.040 Latex allergy status; Z91.011 Allergy to milk products

== ENCOUNTER 2022-11-23 17:21 | Emergency (ER) | payer MEDICAID, OTHER ==
[~2022-11-23] VITALS: Ht 154.9 cm; Wt 46.0 kg
[~2022-11-23 17:21] MED LIST changes: +ABIL1TAB13 PO; +HYDR50TA70 PO; +NICO21PAT TD; +VALA500T5 PO; +VENL37.598 PO
[2022-11-23 17:27] VITALS: BP 131/75
[2022-11-23] MEDS ORDERED: ARIPiprazole 2 MG TAB PO ONE (18:50)
[2022-11-23] MEDS ORDERED: VENLAFAXINE **XR** 37.5 MG CAPSULE PO ONE (18:50)
[2022-11-23] MEDS ORDERED: ONDANSETRON 4MG 2ML VIAL IV ONE (18:50)
[2022-11-23] MEDS ORDERED: NS 1,000 ML IV ONE (18:50)
[2022-11-23 19:59] LABS: BASO % 0.3 % (0.0-1.0); EOS # 0.1 10^3/uL (0.0-0.5); EOS % 1.5 % (0.0-3.0); HEMATOCRIT 40.3 % (36.0-47.0); HEMOGLOBIN 12.9 g/dl (12.0-15.5); LYMPH # 2.4 10^3/uL (1.5-5.0); LYMPH % 33.2 % (24.0-44.0); MEAN CORPUSCULAR HEMOGLOBIN 27.4 pg (27.0-33.0); MEAN CORPUSCULAR VOLUME 85.7 fl (80.0-96.0); MONO # 0.3 10^3/uL (0.0-0.8); MONO % 3.6 % (2.0-8.0); NEUTROPHILS # 4.5 10^3/uL (1.5-8.5); NEUTROPHILS % 61.3 % (36.0-66.0); PLATELET COUNT, AUTOMATED 287 10^3/uL (150-450); WHITE BLOOD COUNT 7.3 10^3/uL (4.0-10.0)
[2022-11-23 20:42] LABS: THYROID STIMULATING HORMONE 1.352 uIU/ML (0.55-4.78)
[2022-11-23 20:45] LABS: FREE THYROXINE INDEX 2.1 % (1.3-4.8); T UPTAKE 34.3 % (22.5-37.0)
[2022-11-23] MEDS ORDERED: ABIL1TAB13 PO (21:30)
[2022-11-23] MEDS ORDERED: EFFE37.5 PO (21:30)
[2022-11-23] MEDS ORDERED: ONDA4TAB6 PO (21:30)
== END 2022-11-23 21:43 | disposition home or self-care (01) ==
LOC: M ED 17:21
DX: T43.295A Adverse effect of other antidepressants, initial encounter (principal); Z76.0 Encounter for issue of repeat prescription; R42 Dizziness and giddiness; R11.0 Nausea; I10 Essential (primary) hypertension; J45.909 Unspecified asthma, uncomplicated; R51.9 Headache, unspecified
CPT/HCPCS: 80047; 84436; 84443; 84479; 84702; 85025; 87428; 96361; 96374; 99284; J2405

== ENCOUNTER 2023-01-07 02:32 | Inpatient (IN) | payer MEDICAID, OTHER ==
[~2023-01-07] VITALS: Ht 154.9 cm; Wt 48.0 kg
[~2023-01-07 02:32] MED LIST changes: +EFFE37.5 PO
[2023-01-07 04:10] LABS: HEMATOCRIT 37.9 % (36.0-47.0); MEAN CORPUSCULAR HEMOGLOBIN 27.5 pg (27.0-33.0); MEAN CORPUSCULAR HGB CONC 31.7 g/dl (32.0-36.5); MEAN CORPUSCULAR VOLUME 86.9 fl (80.0-96.0); PLATELET COUNT, AUTOMATED 485 10^3/uL (150-450); RED BLOOD COUNT 4.36 10^6/uL (4.00-5.40); WHITE BLOOD COUNT 11.3 10^3/uL (4.0-10.0)
[2023-01-07 04:14] LABS: ETHYL ALCOHOL (ETHANOL) < 0.003 % (0.000-0.010)
[2023-01-07 04:15] LABS: ACETAMINOPHEN LEVEL 19.4 UG/ML (10.0-20.0)
[2023-01-07 04:16] LABS: ALBUMIN 3.6 G/DL (3.2-5.2); ALKALINE PHOSPHATASE 67 U/L (46-116); ALT/SGPT 13 U/L (7.0-40); AST/SGOT 13 U/L (<34); BILIRUBIN,DIRECT < 0.1 MG/DL (<0.4); BILIRUBIN,TOTAL 0.4 MG/DL (0.3-1.2); BLOOD UREA NITROGEN 11 MG/DL (9-23); CALCIUM LEVEL 9.1 MG/DL (8.5-10.1); CARBON DIOXIDE LEVEL 27 MMOL/L (20-31); CHLORIDE LEVEL 107 MMOL/L (98-107); GLOMERULAR FILTRATION RATE > 60.0 (>60); GLUCOSE, FASTING 89 MG/DL (60-100); POTASSIUM SERUM 4.2 MMOL/L (3.5-5.1); SALICYLATE LEVEL < 3.0 MG/DL (<30); SODIUM LEVEL 139 MMOL/L (136-145); TOTAL PROTEIN 6.5 G/DL (5.7-8.2)
[2023-01-07 04:18] LABS: THYROID STIMULATING HORMONE 1.374 uIU/ML (0.55-4.78)
[2023-01-07 04:30] LABS: BARBITURATES URINE NEGATIVE (NEGATIVE); BENZODIAZEPINES URINE NEGATIVE (NEGATIVE); COCAINE METABOLITE URINE NEGATIVE (NEGATIVE); HCG, SERUM QUALITATIVE NEGATIVE (NEGATIVE); METHADONE URINE NEGATIVE (NEGATIVE); OPIATES URINE NEGATIVE (NEGATIVE); PHENCYCLIDINE URINE NEGATIVE (NEGATIVE)
[2023-01-07 05:00] LABS: AMPHETAMINES LEVEL URINE POSITIVE (NEGATIVE); CANNABINOIDS URINE POSITIVE (NEGATIVE)
[2023-01-07] MEDS ORDERED: IBUPROFEN 600MG TAB PO ONE (06:35)
[2023-01-07] MEDS ORDERED: VENL75CA47 PO (10:52)
[2023-01-07] MEDS ORDERED: ARIP1TAB4 PO (10:52)
[2023-01-07] MEDS ORDERED: MIRT1TAB PO (10:52)
[2023-01-07] MEDS ORDERED: HOME MED LIST COMPLETE! XX SCH (10:55)
[2023-01-07] MEDS ORDERED: MOM 30ML SUSPENSION UDC PO PRN (14:05)
[2023-01-07] MEDS ORDERED: MAALOX 30 ML SUSP *UDC PO PRN (14:05)
[2023-01-07] MEDS ORDERED: traZODone 50 MG TAB PO PRN (14:05)
[2023-01-07] MEDS ORDERED: OLANZapine ORAL DISINTEGRATING TAB 5MG PO PRN (14:05)
[2023-01-07 18:11] VITALS: BP 137/80
[2023-01-07] MEDS: ACETAMINOPHEN TAB 650MG DOSE (2X325MG) PO PRN (21:19)
[2023-01-08] MEDS: ACETAMINOPHEN TAB 650MG DOSE (2X325MG) PO PRN ×3 (04:01→21:05)
[2023-01-08 06:04] VITALS: BP 113/58
[2023-01-09 06:10] VITALS: BP 91/54
[2023-01-09 17:43] VITALS: BP 135/58
[2023-01-10 06:13] VITALS: BP 96/51
== END 2023-01-10 12:39 | disposition home or self-care (01) | DRG 753 ==
LOC: M ED 02:32 → M ED INP 14:01 → M PSY 17:08
PROVIDERS: ADMIT Psychiatry & Neurology Psychiatry; ATTEND Psychiatry & Neurology Psychiatry
DX: F31.60 Bipolar disorder, current episode mixed, unspecified (principal); F15.10 Other stimulant abuse, uncomplicated; F19.14 Other psychoactive substance abuse with psychoactive substance-induced mood disorder; F12.10 Cannabis abuse, uncomplicated; Z79.899 Other long term (current) drug therapy; Z88.8 Allergy status to other drugs, medicaments and biological substances; Z91.018 Allergy to other foods; Z91.040 Latex allergy status; E73.9 Lactose intolerance, unspecified; Z81.8 Family history of other mental and behavioral disorders; J45.20 Mild intermittent asthma, uncomplicated; Z56.0 Unemployment, unspecified; Z63.32 Other absence of family member

== ENCOUNTER 2024-03-06 06:57 | Emergency (ER) | payer OTHER ==
[~2024-03-06] VITALS: Ht 157.5 cm; Wt 50.0 kg
[~2024-03-06 06:57] MED LIST changes: +ARIP1TAB4 PO; -EFFE37.5 PO; +EFFE37.52 PO; +MIRT1TAB PO; +ONDA-282 PO; -ONDA4TAB6 PO; +VENL75CA47 PO
[2024-03-06 07:46] LABS: BASO # 0.1 10^3/uL (0.0-0.2); BASO % 0.7 % (0.0-1.0); EOS # 0.1 10^3/uL (0.0-0.5); EOS % 1.1 % (0.0-3.0); HEMATOCRIT 32.3 % (36.0-47.0); HEMOGLOBIN 10.7 g/dl (12.0-15.5); LYMPH % 22.3 % (24.0-44.0); MEAN CORPUSCULAR HEMOGLOBIN 27.2 pg (27.0-33.0); MEAN CORPUSCULAR HGB CONC 33.1 g/dl (32.0-36.5); MEAN CORPUSCULAR VOLUME 82.2 fl (80.0-96.0); MONO # 0.4 10^3/uL (0.0-0.8); MONO % 4.4 % (2.0-8.0); NEUTROPHILS # 6.4 10^3/uL (1.5-8.5); NEUTROPHILS % 71.2 % (36.0-66.0); PLATELET COUNT, AUTOMATED 432 10^3/uL (150-450); RED BLOOD COUNT 3.93 10^6/uL (4.00-5.40); WHITE BLOOD COUNT 8.9 10^3/uL (4.0-10.0)
[2024-03-06] MEDS: PROMETHAZINE 25MG/ML 1ML VIAL IV ONE (07:49)
[2024-03-06] MEDS: NS 1,000 ML IV ONE (07:49)
[2024-03-06 08:05] LABS: LIPASE 23 U/L (12-53)
[2024-03-06 08:06] LABS: C REACTIVE PROTEIN QUANTITATIV < 0.40 MG/DL (<1.0)
[2024-03-06 08:07] LABS: ALBUMIN 3.5 G/DL (3.2-5.2); ALKALINE PHOSPHATASE 60 U/L (46-116); ALT/SGPT 11 U/L (7.0-40); AST/SGOT < 8 U/L (<34); BILIRUBIN,DIRECT < 0.1 MG/DL (<0.4); BILIRUBIN,TOTAL 0.3 MG/DL (0.3-1.2); BLOOD UREA NITROGEN 12 MG/DL (9-23); CALCIUM LEVEL 9.4 MG/DL (8.5-10.1); CARBON DIOXIDE LEVEL 28 MMOL/L (20-31); CHLORIDE LEVEL 104 MMOL/L (98-107); CREATININE FOR GFR 0.74 MG/DL (0.55-1.30); GLOMERULAR FILTRATION RATE > 60.0 (>60); GLUCOSE, FASTING 110 MG/DL (60-100); POTASSIUM SERUM 3.6 MMOL/L (3.5-5.1); SODIUM LEVEL 139 MMOL/L (136-145); TOTAL PROTEIN 6.2 G/DL (5.7-8.2)
[2024-03-06 08:09] LABS: HCG, SERUM QUALITATIVE NEGATIVE (NEGATIVE)
[2024-03-06] MEDS: ACETAMINOPHEN *IV* 1,000 MG in IV 1 EA IV ONE (08:24)
[2024-03-06] MEDS ORDERED: HALOPERIDOL LACTATE 5MG/ML VIAL IV STA (08:38)
[2024-03-06] MEDS: METOCLOPRAMIDE INJ 10MG/2ML VIAL IV ONE (09:03)
[2024-03-06] MEDS ORDERED: REGL10TA6 PO (10:37)
[2024-03-06] MEDS ORDERED: ONDA-282 PO (10:37)
[2024-03-06 11:02] VITALS: BP 139/91; TEMP 97.3; O2SAT 100
== END 2024-03-06 11:30 | disposition home or self-care (01) ==
LOC: M ED 06:57
DX: F12.10 Cannabis abuse, uncomplicated (principal); R10.9 Unspecified abdominal pain; R11.10 Vomiting, unspecified; I10 Essential (primary) hypertension; Z87.442 Personal history of urinary calculi; K50.919 Crohn's disease, unspecified, with unspecified complications; F43.10 Post-traumatic stress disorder, unspecified; F41.9 Anxiety disorder, unspecified; F32.A Depression, unspecified; F17.290 Nicotine dependence, other tobacco product, uncomplicated; Z79.899 Other long term (current) drug therapy; Z88.8 Allergy status to other drugs, medicaments and biological substances; Z91.018 Allergy to other foods; Z91.040 Latex allergy status
CPT/HCPCS: 80048; 80076; 81001; 83690; 84702; 84703; 85025; 86140; 96365; 96366; 96375; 99284; J0131; J2550; J2765

== ENCOUNTER 2024-03-07 14:18 | Emergency (ER) | payer OTHER ==
[~2024-03-07] VITALS: Ht 154.9 cm; Wt 113.2 kg
[~2024-03-07 14:18] MED LIST changes: +REGL10TA6 PO
[2024-03-07 19:53] VITALS: BP 131/78; TEMP 97.4; O2SAT 97
[2024-03-07 21:07] LABS: BASO # 0.1 10^3/uL (0.0-0.2); BASO % 1.4 % (0.0-1.0); EOS # 0.2 10^3/uL (0.0-0.5); EOS % 3.2 % (0.0-3.0); HEMATOCRIT 34.5 % (36.0-47.0); HEMOGLOBIN 11.4 g/dl (12.0-15.5); LYMPH # 2.5 10^3/uL (1.5-5.0); LYMPH % 34.4 % (24.0-44.0); MEAN CORPUSCULAR HEMOGLOBIN 27.2 pg (27.0-33.0); MEAN CORPUSCULAR VOLUME 82.3 fl (80.0-96.0); MONO # 0.4 10^3/uL (0.0-0.8); MONO % 5.7 % (2.0-8.0); NEUTROPHILS # 3.9 10^3/uL (1.5-8.5); PLATELET COUNT, AUTOMATED 444 10^3/uL (150-450); RED BLOOD COUNT 4.19 10^6/uL (4.00-5.40); WHITE BLOOD COUNT 7.2 10^3/uL (4.0-10.0)
[2024-03-07 21:33] LABS: LIPASE 25 U/L (12-53)
[2024-03-07 21:35] LABS: ALBUMIN 3.6 G/DL (3.2-5.2); ALKALINE PHOSPHATASE 61 U/L (46-116); ALT/SGPT 10 U/L (7.0-40); AST/SGOT < 8 U/L (<34); BILIRUBIN,DIRECT < 0.1 MG/DL (<0.4); BILIRUBIN,TOTAL 0.3 MG/DL (0.3-1.2); BLOOD UREA NITROGEN 7 MG/DL (9-23); CARBON DIOXIDE LEVEL 28 MMOL/L (20-31); CHLORIDE LEVEL 106 MMOL/L (98-107); CREATININE FOR GFR 0.81 MG/DL (0.55-1.30); GLOMERULAR FILTRATION RATE > 60.0 (>60); GLUCOSE, FASTING 106 MG/DL (60-100); POTASSIUM SERUM 4.3 MMOL/L (3.5-5.1); SODIUM LEVEL 138 MMOL/L (136-145); TOTAL PROTEIN 6.4 G/DL (5.7-8.2)
== END 2024-03-07 21:50 | disposition left against medical advice (07) ==
LOC: M ED 14:18
DX: Z53.21 Procedure and treatment not carried out due to patient leaving prior to being seen by health care provider (principal)

== ENCOUNTER 2024-03-09 04:22 | Observation (INO) | payer OTHER ==
[~2024-03-09] VITALS: Ht 154.9 cm; Wt 50.0 kg
[2024-03-09] MEDS: NS 1,000 ML IV ONE (08:42)
[2024-03-09] MEDS: ONDANSETRON 4MG 2ML VIAL IV ONE (08:42)
[2024-03-09 08:43] LABS: HEMATOCRIT 37.9 % (36.0-47.0); HEMOGLOBIN 12.3 g/dl (12.0-15.5); MEAN CORPUSCULAR HEMOGLOBIN 26.9 pg (27.0-33.0); MEAN CORPUSCULAR HGB CONC 32.5 g/dl (32.0-36.5); MEAN CORPUSCULAR VOLUME 82.9 fl (80.0-96.0); PLATELET COUNT, AUTOMATED 547 10^3/uL (150-450); RED BLOOD COUNT 4.57 10^6/uL (4.00-5.40); WHITE BLOOD COUNT 10.7 10^3/uL (4.0-10.0)
[2024-03-09] MEDS: KETOROLAC 30 MG/ML 1ML VIAL IV ONE (08:43)
[2024-03-09 08:58] LABS: ATYPICAL LYMPH 2 % (0-5); EOSINOPHILS 6 % (0-3); LYMPHOCYTES 46 % (16-44); MONOCYTES 4 % (0-5); NEUTROPHILS 42 % (28-66)
[2024-03-09 08:59] LABS: ANISOCYTOSIS 1+; PLATELET ESTIMATE INCREASED (NORMAL); POIKILOCYTOSIS 1+
[2024-03-09 09:07] LABS: LIPASE 26 U/L (12-53)
[2024-03-09 09:11] LABS: ALBUMIN 3.5 G/DL (3.2-5.2); ALKALINE PHOSPHATASE 63 U/L (46-116); ALT/SGPT 11 U/L (7.0-40); AST/SGOT < 8 U/L (<34); BILIRUBIN,DIRECT < 0.1 MG/DL (<0.4); BILIRUBIN,TOTAL 0.2 MG/DL (0.3-1.2); BLOOD UREA NITROGEN 11 MG/DL (9-23); CALCIUM LEVEL 9.3 MG/DL (8.5-10.1); CARBON DIOXIDE LEVEL 29 MMOL/L (20-31); CHLORIDE LEVEL 105 MMOL/L (98-107); CREATININE FOR GFR 0.85 MG/DL (0.55-1.30); GLOMERULAR FILTRATION RATE > 60.0 (>60); GLUCOSE, FASTING 103 MG/DL (60-100); POTASSIUM SERUM 3.8 MMOL/L (3.5-5.1); SODIUM LEVEL 140 MMOL/L (136-145); TOTAL PROTEIN 6.3 G/DL (5.7-8.2)
[2024-03-09] MEDS ORDERED: ISOVUE-370 76% 100ML VIAL As Ordered ONE (09:18)
[2024-03-09] MEDS: ACETAMINOPHEN *IV* 1,000 MG in IV 1 EA IV ONE ×2 (12:05→17:01)
[2024-03-09] MEDS ORDERED: MAALOX 30 ML SUSP *UDC PO PRN (12:20)
[2024-03-09] MEDS ORDERED: HALOPERIDOL LACTATE 5MG/ML VIAL IV PRN (12:20)
[2024-03-09] MEDS: D5W/0.9% SODIUM CHLORIDE 1,000 ML IV SCH (13:07)
[2024-03-09] MEDS ORDERED: PROP10TA56 PO (13:22)
[2024-03-09] MEDS ORDERED: HOME MED LIST COMPLETE! XX SCH (13:25)
[2024-03-09 14:30] VITALS: BP 141/88; TEMP 97.8; O2SAT 100
[2024-03-09] MEDS: KETOROLAC 30 MG/ML 1ML VIAL IV SCH (14:46)
[2024-03-09] MEDS: PANTOPRAZOLE 40MG VIAL IV SCH ×2 (14:47→22:13)
[2024-03-09] MEDS: CAPSAICIN 0.025% CR 60 GM TOP SCH (16:00)
[2024-03-09] MEDS: METOCLOPRAMIDE INJ 10MG/2ML VIAL IV SCH (17:01)
[2024-03-09 22:00] VITALS: BP 120/70; TEMP 98.4; O2SAT 98
[2024-03-09] MEDS: GABAPENTIN 100 MG CAP PO SCH (22:13)
[2024-03-09] MEDS: PROCHLORPERAZINE 10MG 2ML VIAL IV PRN (23:50)
[2024-03-10] MEDS: MORPHINE 2 MG/ML 1ML VIAL IV PRN (00:01)
[2024-03-10 06:00] VITALS: BP 131/72; TEMP 98.9; O2SAT 98
[2024-03-10 08:00] VITALS: BP 113/66; TEMP 98.1; O2SAT 99
[2024-03-10 08:35] LABS: BASO # 0.1 10^3/uL (0.0-0.2); BASO % 0.8 % (0.0-1.0); EOS # 0.2 10^3/uL (0.0-0.5); EOS % 3.4 % (0.0-3.0); HEMATOCRIT 32.3 % (36.0-47.0); HEMOGLOBIN 10.7 g/dl (12.0-15.5); LYMPH # 3.2 10^3/uL (1.5-5.0); LYMPH % 44.7 % (24.0-44.0); MEAN CORPUSCULAR HEMOGLOBIN 27.4 pg (27.0-33.0); MEAN CORPUSCULAR HGB CONC 33.1 g/dl (32.0-36.5); MEAN CORPUSCULAR VOLUME 82.6 fl (80.0-96.0); MONO # 0.4 10^3/uL (0.0-0.8); MONO % 5.5 % (2.0-8.0); NEUTROPHILS # 3.2 10^3/uL (1.5-8.5); NEUTROPHILS % 45.5 % (36.0-66.0); RED BLOOD COUNT 3.91 10^6/uL (4.00-5.40); WHITE BLOOD COUNT 7.1 10^3/uL (4.0-10.0)
[2024-03-10 08:39] LABS: PLATELET COUNT, AUTOMATED 392 10^3/uL (150-450)
[2024-03-10 08:57] LABS: BLOOD UREA NITROGEN 5 MG/DL (9-23); CALCIUM LEVEL 8.5 MG/DL (8.5-10.1); CARBON DIOXIDE LEVEL 27 MMOL/L (20-31); CHLORIDE LEVEL 109 MMOL/L (98-107); CREATININE FOR GFR 0.62 MG/DL (0.55-1.30); GLOMERULAR FILTRATION RATE > 60.0 (>60); GLUCOSE, FASTING 91 MG/DL (60-100); SODIUM LEVEL 141 MMOL/L (136-145)
[2024-03-10] MEDS ORDERED: KETOROLAC 30 MG/ML 1ML VIAL IV PRN (10:15)
[2024-03-10] MEDS ORDERED: OMEP40CA4 PO (10:16)
[2024-03-11] MEDS ORDERED: PRED20TA PO (02:50)
[2024-03-11] MEDS ORDERED: BENA25CA4 PO (02:53)
== END 2024-03-10 12:19 | disposition home or self-care (01) ==
LOC: M ED 04:22 → M ED INP 12:16 → M PED 14:28
PROVIDERS: ADMIT Internal Medicine Nephrology; ATTEND Internal Medicine Nephrology
DX: R11.2 Nausea with vomiting, unspecified (principal); F12.188 Cannabis abuse with other cannabis-induced disorder; R82.71 Bacteriuria; B96.20 Unspecified Escherichia coli [E. coli] as the cause of diseases classified elsewhere; N20.0 Calculus of kidney; F19.10 Other psychoactive substance abuse, uncomplicated; F43.10 Post-traumatic stress disorder, unspecified; F31.9 Bipolar disorder, unspecified; F60.3 Borderline personality disorder; F25.9 Schizoaffective disorder, unspecified; I10 Essential (primary) hypertension; J45.909 Unspecified asthma, uncomplicated; R51.9 Headache, unspecified; Z87.442 Personal history of urinary calculi; R56.9 Unspecified convulsions; K50.90 Crohn's disease, unspecified, without complications; Z91.018 Allergy to other foods; Z91.011 Allergy to milk products; Z91.040 Latex allergy status; Z88.8 Allergy status to other drugs, medicaments and biological substances; Z82.49 Family history of ischemic heart disease and other diseases of the circulatory system; Z84.1 Family history of disorders of kidney and ureter; Z81.8 Family history of other mental and behavioral disorders; Z84.89 Family history of other specified conditions
CPT/HCPCS: 36415; 74177; 80048; 80076; 81001; 83690; 85025; 87088; 87186; 96374; 96375; 96376; 99284; C9113; J0131; J0780; J1885; J2405; J2765; Q9967

== ENCOUNTER 2024-03-11 00:03 | Emergency (ER) | payer OTHER ==
[~2024-03-11 00:03] MED LIST changes: +OMEP40CA4 PO; +PROP10TA56 PO
[2024-03-11] MEDS ORDERED: PRED20TA PO (02:50)
[2024-03-11] MEDS ORDERED: BENA25CA4 PO (02:53)
== END 2024-03-11 00:39 | disposition left against medical advice (07) ==
LOC: M ED 00:03 → EDBD 00:03 → M ED 00:39
DX: Z53.21 Procedure and treatment not carried out due to patient leaving prior to being seen by health care provider (principal)

== ENCOUNTER 2024-03-11 00:21 | Emergency (ER) | payer OTHER ==
[~2024-03-11] VITALS: Ht 154.9 cm; Wt 47.0 kg
[2024-03-11 00:22] VITALS: TEMP 96.3
[2024-03-11] MEDS: predniSONE 20 MG TAB PO ONE (02:48)
[2024-03-11] MEDS ORDERED: PRED20TA PO (02:50)
[2024-03-11] MEDS ORDERED: BENA25CA4 PO (02:53)
[2024-03-11 03:04] VITALS: BP 149/82; O2SAT 97
== END 2024-03-11 03:06 | disposition home or self-care (01) ==
LOC: M ED 00:21
DX: T78.40XA Allergy, unspecified, initial encounter (principal); K21.9 Gastro-esophageal reflux disease without esophagitis; F32.A Depression, unspecified; Z88.8 Allergy status to other drugs, medicaments and biological substances; Z91.040 Latex allergy status; Z91.011 Allergy to milk products; Z91.018 Allergy to other foods; Z79.52 Long term (current) use of systemic steroids; Z79.899 Other long term (current) drug therapy
CPT/HCPCS: 99284; J7512

== ENCOUNTER 2024-06-02 23:09 | Emergency (ER) | payer OTHER ==
[~2024-06-02] VITALS: Ht 154.9 cm; Wt 47.9 kg
[~2024-06-02 23:09] MED LIST changes: +BENA25CA4 PO; +PRED20TA PO
[2024-06-03] MEDS: diphenhydrAMINE 50MG/ML VIAL IV ONE (01:40)
[2024-06-03] MEDS: NS 1,000 ML IV ONE (01:40)
[2024-06-03] MEDS ORDERED: PROCHLORPERAZINE 5MG TAB PO ONE ×2 (01:45→01:50)
[2024-06-03] MEDS: PROCHLORPERAZINE 10MG 2ML VIAL IV STA (02:54)
[2024-06-03 03:06] LABS: BASO # 0.1 10^3/uL (0.0-0.2); BASO % 1.2 % (0.0-1.0); EOS # 0.4 10^3/uL (0.0-0.5); EOS % 3.9 % (0.0-3.0); HEMATOCRIT 33.1 % (36.0-47.0); HEMOGLOBIN 10.4 g/dl (12.0-15.5); LYMPH # 4.2 10^3/uL (1.5-5.0); LYMPH % 44.8 % (24.0-44.0); MEAN CORPUSCULAR HEMOGLOBIN 25.4 pg (27.0-33.0); MEAN CORPUSCULAR HGB CONC 31.4 g/dl (32.0-36.5); MEAN CORPUSCULAR VOLUME 80.9 fl (80.0-96.0); MONO # 0.5 10^3/uL (0.0-0.8); MONO % 5.7 % (2.0-8.0); NEUTROPHILS # 4.2 10^3/uL (1.5-8.5); NEUTROPHILS % 44.2 % (36.0-66.0); PLATELET COUNT, AUTOMATED 439 10^3/uL (150-450); RED BLOOD COUNT 4.09 10^6/uL (4.00-5.40); WHITE BLOOD COUNT 9.4 10^3/uL (4.0-10.0)
[2024-06-03 03:25] LABS: BARBITURATES URINE NEGATIVE (NEGATIVE); BENZODIAZEPINES URINE NEGATIVE (NEGATIVE); COCAINE METABOLITE URINE NEGATIVE (NEGATIVE); METHADONE URINE NEGATIVE (NEGATIVE); OPIATES URINE NEGATIVE (NEGATIVE); PHENCYCLIDINE URINE NEGATIVE (NEGATIVE)
[2024-06-03 03:28] LABS: AMPHETAMINES LEVEL URINE POSITIVE (NEGATIVE); CANNABINOIDS URINE POSITIVE (NEGATIVE); ETHYL ALCOHOL (ETHANOL) < 0.003 % (0.000-0.010)
[2024-06-03 03:30] LABS: BLOOD UREA NITROGEN 14 MG/DL (9-23); CALCIUM LEVEL 8.7 MG/DL (8.5-10.1); CARBON DIOXIDE LEVEL 26 MMOL/L (20-31); CHLORIDE LEVEL 109 MMOL/L (98-107); GLOMERULAR FILTRATION RATE > 60.0 (>60); GLUCOSE, FASTING 88 MG/DL (60-100); SODIUM LEVEL 139 MMOL/L (136-145)
[2024-06-03 03:32] LABS: THYROID STIMULATING HORMONE 1.898 uIU/ML (0.55-4.78)
[2024-06-03 03:33] LABS: HCG, SERUM QUALITATIVE NEGATIVE (NEGATIVE)
[2024-06-03 05:33] VITALS: BP 105/68; TEMP 97; O2SAT 98
[2024-06-04] MEDS ORDERED: BENA25CA4 PO (03:34)
[2024-06-04] MEDS ORDERED: PEPC1TAB5 PO (03:34)
== END 2024-06-03 05:40 | disposition home or self-care (01) ==
LOC: M ED 23:09
DX: G43.909 Migraine, unspecified, not intractable, without status migrainosus (principal); R00.1 Bradycardia, unspecified; I10 Essential (primary) hypertension; F17.290 Nicotine dependence, other tobacco product, uncomplicated; F10.10 Alcohol abuse, uncomplicated; F19.10 Other psychoactive substance abuse, uncomplicated; Z91.040 Latex allergy status; Z91.011 Allergy to milk products; Z91.018 Allergy to other foods; Z79.899 Other long term (current) drug therapy
CPT/HCPCS: 70450; 80048; 80307; 82077; 83735; 84443; 84703; 85025; 93005; 93041; 94760; 96361; 96374; 96375; 99284; J0780; J1200

== ENCOUNTER 2024-06-03 21:42 | Emergency (ER) | payer OTHER ==
[~2024-06-03] VITALS: Ht 154.9 cm; Wt 48.4 kg
[2024-06-03 21:42] VITALS: BP 121/90; TEMP 97.1; O2SAT 100
[2024-06-04] MEDS ORDERED: BENA25CA4 PO (03:34)
[2024-06-04] MEDS ORDERED: PEPC1TAB5 PO (03:34)
== END 2024-06-03 23:31 | disposition left against medical advice (07) ==
LOC: M ED 21:42
DX: Z53.21 Procedure and treatment not carried out due to patient leaving prior to being seen by health care provider (principal)

== ENCOUNTER 2024-06-04 00:36 | Emergency (ER) | payer OTHER ==
[~2024-06-04] VITALS: Ht 154.9 cm; Wt 49.9 kg
[2024-06-04 00:45] VITALS: TEMP 98
[2024-06-04] MEDS ORDERED: diphenhydrAMINE 50MG/ML VIAL IV STA (02:09)
[2024-06-04] MEDS ORDERED: FAMOTIDINE IV BAG 20 MG in IV 1 EA IV ONE (02:10)
[2024-06-04] MEDS ORDERED: dexAMETHasone 20MG/5ML VIAL IV ONE (02:10)
[2024-06-04] MEDS ORDERED: dexAMETHasone 20MG/5ML VIAL XX STA (02:16)
[2024-06-04] MEDS ORDERED: diphenhydrAMINE 50MG/ML VIAL IV ONE (02:25)
[2024-06-04] MEDS: FAMOTIDINE 20 MG TAB PO ONE (02:36)
[2024-06-04] MEDS: dexAMETHasone 4 MG TAB PO STA (02:36)
[2024-06-04] MEDS: diphenhydrAMINE 25MG CAP PO ONE (02:36)
[2024-06-04 03:30] VITALS: BP 126/62; O2SAT 98
[2024-06-04] MEDS ORDERED: BENA25CA4 PO (03:34)
[2024-06-04] MEDS ORDERED: PEPC1TAB5 PO (03:34)
== END 2024-06-04 04:03 | disposition home or self-care (01) ==
LOC: M ED 00:36 → EDBD 00:36 → M ED 04:03
DX: L50.0 Allergic urticaria (principal); Z91.040 Latex allergy status; Z91.018 Allergy to other foods; Z88.8 Allergy status to other drugs, medicaments and biological substances; Z79.899 Other long term (current) drug therapy

== ENCOUNTER 2024-08-08 21:19 | Emergency (ER) | payer OTHER ==
[~2024-08-08] VITALS: Ht 154.9 cm; Wt 48.9 kg
[~2024-08-08 21:19] MED LIST changes: +PEPC1TAB5 PO
[2024-08-08 21:25] VITALS: BP 155/65; TEMP 96.6; O2SAT 99
== END 2024-08-08 23:15 | disposition left against medical advice (07) ==
LOC: M ED 21:19
DX: S00.03XA Contusion of scalp, initial encounter (principal); Y92.9 Unspecified place or not applicable; Y93.9 Activity, unspecified; Y99.9 Unspecified external cause status; K21.9 Gastro-esophageal reflux disease without esophagitis; J45.909 Unspecified asthma, uncomplicated; F17.210 Nicotine dependence, cigarettes, uncomplicated; F15.10 Other stimulant abuse, uncomplicated; Z88.8 Allergy status to other drugs, medicaments and biological substances; Z91.040 Latex allergy status; Z91.011 Allergy to milk products; Z91.018 Allergy to other foods; Z79.899 Other long term (current) drug therapy; Z53.9 Procedure and treatment not carried out, unspecified reason

== ENCOUNTER 2024-08-15 00:34 | Inpatient (IN) | payer MEDICAID, OTHER ==
[~2024-08-15] VITALS: Ht 152.4 cm; Wt 54.5 kg
[2024-08-15 01:10] LABS: HEMATOCRIT 35.9 % (36.0-47.0); HEMOGLOBIN 11.2 g/dl (12.0-15.5); MEAN CORPUSCULAR HEMOGLOBIN 24.9 pg (27.0-33.0); MEAN CORPUSCULAR HGB CONC 31.2 g/dl (32.0-36.5); MEAN CORPUSCULAR VOLUME 79.8 fl (80.0-96.0); PLATELET COUNT, AUTOMATED 470 10^3/uL (150-450); WHITE BLOOD COUNT 12.2 10^3/uL (4.0-10.0)
[2024-08-15] MEDS: LORazepam 2 MG/ML 1ML VIAL IM STA ×2 (01:29→03:40)
[2024-08-15] MEDS: diphenhydrAMINE 50MG/ML VIAL IM STA (01:29)
[2024-08-15 01:36] LABS: BARBITURATES URINE NEGATIVE (NEGATIVE); BENZODIAZEPINES URINE NEGATIVE (NEGATIVE); COCAINE METABOLITE URINE NEGATIVE (NEGATIVE); METHADONE URINE NEGATIVE (NEGATIVE); OPIATES URINE NEGATIVE (NEGATIVE); PHENCYCLIDINE URINE NEGATIVE (NEGATIVE)
[2024-08-15 01:37] LABS: AMPHETAMINES LEVEL URINE POSITIVE (NEGATIVE); CANNABINOIDS URINE POSITIVE (NEGATIVE)
[2024-08-15 01:38] LABS: ETHYL ALCOHOL (ETHANOL) 0.007 % (0.000-0.010); HCG, SERUM QUALITATIVE NEGATIVE (NEGATIVE)
[2024-08-15 01:39] LABS: SALICYLATE LEVEL < 3.0 MG/DL (<30)
[2024-08-15 01:40] LABS: ALBUMIN 3.6 G/DL (3.2-5.2); ALKALINE PHOSPHATASE 75 U/L (35-104); ALT/SGPT 17 U/L (7.0-40); AST/SGOT 11 U/L (<34); BILIRUBIN,DIRECT < 0.1 MG/DL (<0.4); BILIRUBIN,TOTAL 0.2 MG/DL (0.3-1.2); BLOOD UREA NITROGEN 11 MG/DL (9-23); CALCIUM LEVEL 9.5 MG/DL (8.5-10.1); CARBON DIOXIDE LEVEL 26 MMOL/L (20-31); CHLORIDE LEVEL 108 MMOL/L (98-107); GLOMERULAR FILTRATION RATE > 60.0 (>60); GLUCOSE, FASTING 75 MG/DL (60-100); SODIUM LEVEL 141 MMOL/L (136-145); TOTAL PROTEIN 6.4 G/DL (5.7-8.2)
[2024-08-15 01:42] LABS: THYROID STIMULATING HORMONE 2.146 uIU/ML (0.55-4.78)
[2024-08-15] MEDS: OLANZapine INTRAMUSCULAR 10MG VIAL IM ONE (03:40)
[2024-08-15] MEDS ORDERED: MED REC CURRENTLY UNOBTAINABLE XX SCH (07:25)
[2024-08-15] MEDS ORDERED: HOME MED LIST COMPLETE! XX SCH (17:50)
[2024-08-15] MEDS ORDERED: ACETAMINOPHEN 325 MG TAB PO PRN (19:15)
[2024-08-15] MEDS ORDERED: OLANZapine ORAL DISINTEGRATING TAB 5MG PO PRN (19:15)
[2024-08-15] MEDS ORDERED: MAALOX 30 ML SUSP *UDC PO PRN (19:15)
[2024-08-15] MEDS ORDERED: MOM 30ML SUSPENSION UDC PO PRN (19:15)
[2024-08-15] MEDS ORDERED: IBUPROFEN 400MG TAB PO PRN (19:15)
[2024-08-16] MEDS: OLANZapine INTRAMUSCULAR 10MG VIAL IM STA (14:46)
[2024-08-16 15:06] VITALS: BP 165/87; TEMP 99.2; O2SAT 100
[2024-08-16] MEDS ORDERED: LORazepam 2 MG/ML 1ML VIAL IM STA (15:26)
[2024-08-16] MEDS: diphenhydrAMINE 50MG/ML VIAL IM STA (15:34)
[2024-08-16] MEDS: PROPRANOLOL 10 MG TAB PO SCH (16:00)
[2024-08-16] MEDS: LORazepam 2 MG/ML 1ML VIAL IM STA (16:06)
[2024-08-16] MEDS: OLANZapine 5 MG TAB PO SCH (21:11)
[2024-08-17 06:57] VITALS: BP 136/79; TEMP 98.5; O2SAT 97
[2024-08-17 08:52] VITALS: BP 160/108
[2024-08-17 10:32] VITALS: BP 134/82
[2024-08-17 15:02] VITALS: BP 117/63; TEMP 98.9; O2SAT 97
[2024-08-17] MEDS: traZODone 50 MG TAB PO PRN (20:29)
[2024-08-17] MEDS: OLANZapine ORAL DISINTEGRATING TAB 5MG PO PRN (20:29)
[2024-08-17] MEDS: BACTRIM 160MG/800MG DS TAB PO SCH (21:00)
[2024-08-18 12:28] LABS: Trichomonas vaginalis (AMP) NOT DETECTED (NEGATIVE)
[2024-08-18 12:51] LABS: GC DNA AMPLIFICATION NEGATIVE (NEGATIVE)
[2024-08-18 13:47] VITALS: BP 155/84; TEMP 98.2; O2SAT 100
[2024-08-18 15:24] VITALS: BP 175/78; TEMP 98.2; O2SAT 99
[2024-08-18 16:15] VITALS: BP 132/83
[2024-08-19 06:21] VITALS: BP 123/72; TEMP 97.5; O2SAT 98
[2024-08-19 08:22] VITALS: BP 140/80
[2024-08-19 08:25] VITALS: BP 140/80
[2024-08-19] MEDS ORDERED: PROP10TA56 PO (09:34)
[2024-08-19] MEDS ORDERED: TRAZ-252 PO (09:34)
[2024-08-19] MEDS ORDERED: OLAN1TAB16 PO (09:34)
== END 2024-08-19 11:04 | disposition home or self-care (01) | DRG 753 ==
LOC: M ED 00:34 → M PSY 20:25
PROVIDERS: ADMIT Psychiatry & Neurology Psychiatry; ATTEND Psychiatry & Neurology Psychiatry
DX: F39 Unspecified mood [affective] disorder (principal); F60.89 Other specific personality disorders; F15.90 Other stimulant use, unspecified, uncomplicated; F12.90 Cannabis use, unspecified, uncomplicated; Z78.1 Physical restraint status; Z91.51 Personal history of suicidal behavior; Z63.32 Other absence of family member; Z56.0 Unemployment, unspecified; Z63.8 Other specified problems related to primary support group; Z79.899 Other long term (current) drug therapy; Z91.018 Allergy to other foods; Z91.040 Latex allergy status; Z88.8 Allergy status to other drugs, medicaments and biological substances; I10 Essential (primary) hypertension; Z80.3 Family history of malignant neoplasm of breast; Z71.51 Drug abuse counseling and surveillance of drug abuser; J45.909 Unspecified asthma, uncomplicated; D64.9 Anemia, unspecified; M25.571 Pain in right ankle and joints of right foot; B96.20 Unspecified Escherichia coli [E. coli] as the cause of diseases classified elsewhere; S70.02XA Contusion of left hip, initial encounter; S40.012A Contusion of left shoulder, initial encounter; W19.XXXA Unspecified fall, initial encounter; Y92.231 Patient bathroom in hospital as the place of occurrence of the external cause

== ENCOUNTER 2024-10-16 07:28 | Emergency (ER) | payer MEDICAID, OTHER ==
[~2024-10-16] VITALS: Ht 154.9 cm; Wt 50.2 kg
[~2024-10-16 07:28] MED LIST changes: +OLAN1TAB16 PO; +TRAZ-252 PO
[2024-10-16 10:04] LABS: BASO # 0.1 10^3/uL (0.0-0.2); BASO % 1.2 % (0.0-1.0); EOS # 0.4 10^3/uL (0.0-0.5); EOS % 6.8 % (0.0-3.0); HEMATOCRIT 35.5 % (36.0-47.0); LYMPH # 2.9 10^3/uL (1.5-5.0); LYMPH % 44.3 % (24.0-44.0); MEAN CORPUSCULAR HEMOGLOBIN 24.3 pg (27.0-33.0); MEAN CORPUSCULAR VOLUME 78.5 fl (80.0-96.0); MONO # 0.5 10^3/uL (0.0-0.8); MONO % 7.6 % (2.0-8.0); NEUTROPHILS # 2.6 10^3/uL (1.5-8.5); NEUTROPHILS % 39.9 % (36.0-66.0); PLATELET COUNT, AUTOMATED 414 10^3/uL (150-450); RED BLOOD COUNT 4.52 10^6/uL (4.00-5.40); WHITE BLOOD COUNT 6.4 10^3/uL (4.0-10.0)
[2024-10-16 10:21] LABS: LIPASE 36 U/L (12-53)
[2024-10-16 10:24] LABS: ALBUMIN 3.6 G/DL (3.2-5.2); ALKALINE PHOSPHATASE 65 U/L (35-104); ALT/SGPT 14 U/L (7.0-40); AST/SGOT 9 U/L (<34); BILIRUBIN,DIRECT < 0.1 MG/DL (<0.4); BILIRUBIN,TOTAL 0.3 MG/DL (0.3-1.2); BLOOD UREA NITROGEN 11 MG/DL (9-23); CALCIUM LEVEL 8.6 MG/DL (8.5-10.1); CARBON DIOXIDE LEVEL 29 MMOL/L (20-31); CHLORIDE LEVEL 108 MMOL/L (98-107); CREATININE FOR GFR 0.68 MG/DL (0.55-1.30); GLOMERULAR FILTRATION RATE > 60.0 (>60); GLUCOSE, FASTING 99 MG/DL (60-100); POTASSIUM SERUM 3.8 MMOL/L (3.5-5.1); SODIUM LEVEL 142 MMOL/L (136-145); TOTAL PROTEIN 6.3 G/DL (5.7-8.2)
[2024-10-16] MEDS: ONDANSETRON 4MG 2ML VIAL IV ONE (10:39)
[2024-10-16] MEDS ORDERED: ISOVUE-370 76% 100ML VIAL As Ordered ONE (10:43)
[2024-10-16] MEDS: GASTROGRAFIN SOLUTION 30ML PO SCH (11:24)
[2024-10-16 13:00] VITALS: BP 127/59; O2SAT 98
[2024-10-16 14:06] VITALS: TEMP 96.5
[2024-10-16] MEDS ORDERED: ONDA-282 PO (14:15)
== END 2024-10-16 14:43 | disposition home or self-care (01) ==
LOC: EDBD 07:28 → M ED 07:28
DX: N83.202 Unspecified ovarian cyst, left side (principal); R19.7 Diarrhea, unspecified; I10 Essential (primary) hypertension; J45.909 Unspecified asthma, uncomplicated; F31.9 Bipolar disorder, unspecified; Z88.8 Allergy status to other drugs, medicaments and biological substances; Z91.040 Latex allergy status; Z91.018 Allergy to other foods; Z91.011 Allergy to milk products; Z79.899 Other long term (current) drug therapy
CPT/HCPCS: 74177; 80048; 80076; 83690; 84702; 85025; 96374; 99284; J2405; Q9963; Q9967

== ENCOUNTER → 2024-10-20 | Outpatient (REF) | payer OTHER | LOC: M LAB REF 18:24 | PROVIDERS: ATTEND Physician Assistant | DX: R19.7 Diarrhea, unspecified (principal) ==

== ENCOUNTER 2025-05-07 18:29 | Emergency (ER) | payer OTHER ==
[~2025-05-07] VITALS: Ht 154.9 cm; Wt 52.7 kg
[2025-05-07 18:32] VITALS: TEMP 98.5
[2025-05-07 21:54] LABS: BASO # 0.1 10^3/uL (0.0-0.2); BASO % 1.0 % (0.0-1.0); EOS # 0.4 10^3/uL (0.0-0.5); EOS % 3.2 % (0.0-3.0); LYMPH # 4.0 10^3/uL (1.5-5.0); LYMPH % 31.8 % (24.0-44.0); MONO # 0.8 10^3/uL (0.0-0.8); MONO % 6.1 % (2.0-8.0); NEUTROPHILS # 7.2 10^3/uL (1.5-8.5); NEUTROPHILS % 57.7 % (36.0-66.0); PLATELET COUNT, AUTOMATED 466 10^3/uL (150-450)
[2025-05-07 23:04] LABS: ALT/SGPT 20.0 U/L (7.0-40); AST/SGOT 18.0 U/L (<34); CALCIUM LEVEL 9.1 MG/DL (8.5-10.1); CARBON DIOXIDE LEVEL 25.0 MMOL/L (20-31); CHLORIDE LEVEL 106.0 MMOL/L (98-107); CREATININE FOR GFR 0.91 MG/DL (0.55-1.30); GLOMERULAR FILTRATION RATE 88.1 (>60); POTASSIUM SERUM 4.1 MMOL/L (3.5-5.1); SODIUM LEVEL 143.0 MMOL/L (136-145)
[2025-05-07 23:20] VITALS: BP 151/67; O2SAT 99
== END 2025-05-07 23:25 | disposition home or self-care (01) ==
LOC: M ED 18:29
DX: M54.6 Pain in thoracic spine (principal); Z88.8 Allergy status to other drugs, medicaments and biological substances; Z91.040 Latex allergy status; Z91.018 Allergy to other foods; Z79.899 Other long term (current) drug therapy

== ENCOUNTER 2025-06-02 00:57 | Emergency (ER) | payer OTHER ==
[~2025-06-02] VITALS: Ht 154.9 cm; Wt 49.1 kg
[2025-06-02 01:01] VITALS: BP 139/71; TEMP 97; O2SAT 98
== END 2025-06-02 03:21 | disposition left against medical advice (07) ==
LOC: M ED 00:57
DX: Z53.21 Procedure and treatment not carried out due to patient leaving prior to being seen by health care provider (principal)

== ENCOUNTER → 2025-06-10 | Outpatient (REF) | payer OTHER ==
[2025-06-10 19:17] LABS: BASO # 0.1 10^3/uL (0.0-0.2); BASO % 1.3 % (0.0-1.0); EOS # 0.1 10^3/uL (0.0-0.5); EOS % 1.5 % (0.0-3.0); LYMPH # 3.4 10^3/uL (1.5-5.0); LYMPH % 35.1 % (24.0-44.0); MONO # 0.7 10^3/uL (0.0-0.8); MONO % 7.5 % (2.0-8.0); NEUTROPHILS # 5.2 10^3/uL (1.5-8.5); NEUTROPHILS % 54.4 % (36.0-66.0); PLATELET COUNT, AUTOMATED 544 10^3/uL (150-450)
[2025-06-10 19:51] LABS: CALCIUM LEVEL 9.7 MG/DL (8.5-10.1); CARBON DIOXIDE LEVEL 28 MMOL/L (20-31); CHLORIDE LEVEL 104 MMOL/L (98-107); CHOLESTEROL LEVEL 212 MG/DL (<200); CHOLESTEROL RISK RATIO 2.56 (<5); CREATININE FOR GFR 0.93 MG/DL (0.55-1.30); GLOMERULAR FILTRATION RATE 85.9 (>60); LDL CHOLESTEROL 117.5 MG/DL (<100); NON-HDL-C 129.5 MG/DL; POTASSIUM SERUM 5.1 MMOL/L (3.5-5.1); SODIUM LEVEL 143 MMOL/L (136-145); TRIGLYCERIDES LEVEL 60 MG/DL (<150)
[2025-06-10 20:25] LABS: HEPATITIS C VIRUS ABY INDEX < 0.02 INDEX (<0.8); HIV 1&2 SCREEN NEGATIVE (NEGATIVE)
== END ==
LOC: M LAB REF 16:21
PROVIDERS: ATTEND Nurse Practitioner Family
DX: I10 Essential (primary) hypertension (principal); R00.0 Tachycardia, unspecified; D72.829 Elevated white blood cell count, unspecified; Z11.9 Encounter for screening for infectious and parasitic diseases, unspecified

== ENCOUNTER → 2025-06-11 | Outpatient (CLI) | payer OTHER | LOC: M RAD 06:31 | PROVIDERS: ATTEND Nurse Practitioner Family | DX: R10.11 Right upper quadrant pain (principal) ==

== ENCOUNTER → 2025-06-16 | Outpatient (CLI) | payer OTHER | LOC: M EKG 08:46 | PROVIDERS: ATTEND Nurse Practitioner Family | DX: R00.0 Tachycardia, unspecified (principal); Z53.9 Procedure and treatment not carried out, unspecified reason ==

== ENCOUNTER → 2025-08-12 | Outpatient (CLI) | payer OTHER | LOC: M PLAIMG 13:44 | PROVIDERS: ATTEND Nurse Practitioner Family | DX: R00.0 Tachycardia, unspecified (principal); I34.0 Nonrheumatic mitral (valve) insufficiency; I36.1 Nonrheumatic tricuspid (valve) insufficiency ==

== ENCOUNTER 2025-09-20 12:20 | Emergency (ER) | payer OTHER ==
[~2025-09-20] VITALS: Ht 154.9 cm; Wt 48.7 kg
[2025-09-20] MEDS: ACETAMINOPHEN 500 MG TAB PO ONE (15:27)
[2025-09-20] MEDS: LIDOCAINE 5% PATCH TD ONE (15:27)
[2025-09-20] MEDS: KETOROLAC 30 MG/ML 1 ML VIAL IM ONE (15:27)
[2025-09-20] MEDS ORDERED: METH-1165 PO (17:09)
[2025-09-20] MEDS ORDERED: NAPR-837 PO (17:09)
[2025-09-20 17:17] VITALS: BP 109/59; TEMP 96.8; O2SAT 98
== END 2025-09-20 17:20 | disposition home or self-care (01) ==
LOC: M ED 12:20
DX: S13.4XXA Sprain of ligaments of cervical spine, initial encounter (principal); Y92.9 Unspecified place or not applicable; Y93.9 Activity, unspecified; Y99.9 Unspecified external cause status; J45.909 Unspecified asthma, uncomplicated; F17.210 Nicotine dependence, cigarettes, uncomplicated; Z88.8 Allergy status to other drugs, medicaments and biological substances; Z91.040 Latex allergy status; Z91.0110 Allergy to milk products, unspecified; Z91.018 Allergy to other foods; Z79.899 Other long term (current) drug therapy
CPT/HCPCS: 72040; 96372; 99283; J1885

== ENCOUNTER → 2025-09-21 | Outpatient (REF) | payer OTHER ==
[~2025-09-21] MED LIST changes: +METH-1165 PO; +NAPR-837 PO
== END ==
LOC: M LAB REF 11:01
PROVIDERS: ATTEND Physician Assistant Medical
DX: R19.5 Other fecal abnormalities (principal)